=== PATIENT | female | born 1995 | race Caucasian/White ===

== ENCOUNTER 2019-04-28 14:03 | Emergency (ER) | payer MEDICAID ==
[~2019-04-28] VITALS: Ht 162.6 cm; Wt 77.1 kg
[2019-04-28 14:05] VITALS: BP 99/64
== END 2019-04-28 17:50 | disposition home or self-care (01) ==
LOC: ER 14:03
DX: E03.9 Hypothyroidism, unspecified (principal); Z76.0 Encounter for issue of repeat prescription

== ENCOUNTER 2019-06-14 13:17 | Inpatient (IN) | payer MEDICAID ==
[~2019-06-14] VITALS: Ht 162.6 cm; Wt 81.0 kg
[2019-06-14] MEDS ORDERED: ONDANSETRON ODT 4 MG TAB PO ONE (14:15)
[2019-06-14 14:24] LABS: Basophils # (auto) 0.1 10 ^3/uL (0-0.2); Eosinophils # (auto) 0.3 10 ^3/uL (0-0.8); Eosinophils % (auto) 2.7 % (0.0-7.0); Hematocrit 38.6 % (36.0-46.0); Hemoglobin 13.2 g/dL (12.2-16.2); Lymphocytes # (auto) 2.7 10 ^3/uL (0.4-5.4); Lymphocytes % (auto) 24.6 % (10.0-50.0); Mean Corpuscular Hgb Conc. 34.2 g/dL (32.0-36.0); Mean Corpuscular Volume 78.9 fL (80.0-100.0); Monocytes # (auto) 0.6 10 ^3/uL (0-1.3); Monocytes % (auto) 5.7 % (0.0-12.0); Neutrophils # (auto) 7.2 10 ^3/uL (1.6-8.6); Nucleated Red Blood Cells % 0.1 %; Platelet Count (auto) 336 10^3/uL (140-450); Red Cell Distribution Width 12.7 % (11.8-14.3); White Blood Cell 10.9 10^3/uL (4.4-10.8)
[2019-06-14] MEDS ORDERED: SODIUM CHLORIDE 0.9% 1,000 ML IV ONE (14:30)
[2019-06-14 14:46] LABS: Albumin 4.1 g/dL (3.4-5.0); Calcium 9.4 mg/dL (8.5-10.1); Magnesium 2.2 mg/dL (1.6-2.6); Potassium 4.6 mmol/L (3.5-5.1)
[2019-06-14 14:49] LABS: BUN/Creatinine Ratio 22.8; Bilirubin, Total 0.6 mg/dL (0.2-1.0); Total Protein 8.5 g/dL (6.4-8.2)
[2019-06-14 16:25] LABS: Urine Bacteria FEW /hpf (None Seen); Urine Blood 2+ /uL (Negative); Urine Specific Gravity 1.005 (1.001-1.035); Urine WBC 6 /hpf (0 - 5)
[2019-06-14] MEDS ORDERED: PROMETHAZINE HCL 25 MG/ML 1ML IV PRN (17:30)
[2019-06-14] MEDS ORDERED: traMADol HCL 50 MG TAB PO PRN (17:30)
[2019-06-14] MEDS ORDERED: ACETAMINOPHEN 500 MG TAB PO PRN (17:30)
[2019-06-14] MEDS ORDERED: MORPHINE SULF INJ 2 MG/ML SYRINGE 1ML IV PRN (17:30)
[2019-06-14] MEDS ORDERED: cefTRIAXone 1GM/50ML D5W 50 ML IV ONE (17:30)
[2019-06-14] MEDS ORDERED: NITROGLYCERIN 0.4 MG SL TAB SL PRN (17:30)
[2019-06-14] MEDS ORDERED: TEMAZEPAM 15 MG CAP PO PRN (17:30)
[2019-06-14] MEDS ORDERED: HYDROCORTISONE SOD SUCC 100 MG/2ML INJ VIAL IV ONE (17:45)
[2019-06-14] MEDS ORDERED: SODIUM CHLORIDE 0.9% 2,000 ML IV ONE (17:45)
[2019-06-14 17:59] LABS: Amylase 50 U/L (25-115); Lipase 130 U/L (73-393)
--- NOTE | 2019-06-14 18:40 | NUR ---
MS admit from [facility] admitted to tele/MS after SBAR received. Patient oriented to Glenny Jovel RN primary RN, unit, room, bed, and unit policies regarding patient care and visiting hours. Patient weighed by bedscale and encouraged to call if she needs something. All questions and concerns addressed, patient verbalized understanding. Note: Addendum: 06/14/19 at 1853 by Glenny Jovel RN RN Patient is telemetry admission - tele 56.
--- NOTE | 2019-06-14 18:41 | NUR ---
Telemetry admit from [facility] admitted to Telemetry unit after SBAR received. Patient oriented to Glenny Jovel, RN primary RN, unit, room, bed, and unit policies regarding patient care and visiting hours. Patient now on continuous telemetry monitoring, tele box # 56 and telemetry reading on arrival to unit is SR 77 . Patient placed on bedside oxygen, weighed by bedscale and encouraged to call if they need something. All questions and concerns addressed, patient verbalized understanding. Note:
[2019-06-14] MEDS ORDERED: LEVO50TA7 PO (19:14)
[2019-06-14] MEDS ORDERED: FLUD0.1T2 PO (19:14)
[2019-06-14] MEDS ORDERED: HYDR20TA19 PO (19:14)
--- NOTE | 2019-06-14 19:20 | NUR ---
Opening Shift Note Assumed care of patient, awake, alert and oriented X4. Patient is sitting up eating dinner, states she is still feeling tired and weak. Instructed patient of importance of using call calderon for assistance if getting out of bed, patient verbalizes understanding. No S/S of distress/SOB or pain. Bed is low, locked, two side rails raised, and call calderon is within reach. Patient connected to tele box #56 with HR 96 bpm. Instructed on POC and to call for assist PRN, will continue to monitor for changes Q1hr and PRN.
[2019-06-14 20:00] VITALS: BP 98/62
[2019-06-14] MEDS ORDERED: LEVOTHYROXINE SODIUM 50 MCG TAB PO ONE (20:00)
[2019-06-14] MEDS ORDERED: FLUDROCORTISONE ACETATE 0.1 MG TAB PO ONE (20:00)
[2019-06-14] MEDS: FAMOTIDINE 20 MG TAB PO SCH (21:30)
[2019-06-14] MEDS: SODIUM CHLORIDE 0.9% 1,000 ML IV SCH (21:32)
[2019-06-15] MEDS: SODIUM CHLORIDE 0.9% 1,000 ML IV SCH ×4 (03:01→23:30)
[2019-06-15 05:28] VITALS: BP 88/49
[2019-06-15] MEDS: HYDROCORTISONE SOD SUCC 100 MG/2ML INJ VIAL IV SCH ×3 (06:15→22:21)
[2019-06-15] MEDS: LEVOTHYROXINE SODIUM 50 MCG TAB PO SCH (06:21)
[2019-06-15 06:49] LABS: Basophils # (auto) 0.1 10 ^3/uL (0-0.2); Basophils % (auto) 0.7 % (0.0-2.0); Eosinophils # (auto) 0.1 10 ^3/uL (0-0.8); Eosinophils % (auto) 1.1 % (0.0-7.0); Hematocrit 32.4 % (36.0-46.0); Hemoglobin 10.7 g/dL (12.2-16.2); Lymphocytes # (auto) 2.6 10 ^3/uL (0.4-5.4); Lymphocytes % (auto) 24.3 % (10.0-50.0); Mean Corpuscular Hemoglobin 27.1 pg (28.0-32.0); Mean Corpuscular Hgb Conc. 33.1 g/dL (32.0-36.0); Mean Corpuscular Volume 81.8 fL (80.0-100.0); Monocytes # (auto) 0.9 10 ^3/uL (0-1.3); Monocytes % (auto) 7.8 % (0.0-12.0); Neutrophils # (auto) 7.2 10 ^3/uL (1.6-8.6); Neutrophils % (auto) 66.1 % (37.0-80.0); Nucleated Red Blood Cells % 0.1 %; Platelet Count (auto) 282 10^3/uL (140-450); Red Blood Cells 3.96 10^6/uL (4.0-5.20); Red Cell Distribution Width 12.9 % (11.8-14.3); White Blood Cell 10.9 10^3/uL (4.4-10.8)
[2019-06-15 07:11] LABS: Potassium 4.1 mmol/L (3.5-5.1)
[2019-06-15 07:17] LABS: Albumin 3.4 g/dL (3.4-5.0); BUN/Creatinine Ratio 21.9; Bilirubin, Total 0.4 mg/dL (0.2-1.0); Calcium 8.5 mg/dL (8.5-10.1); Total Protein 6.9 g/dL (6.4-8.2)
--- NOTE | 2019-06-15 07:53 | NUR ---
Opening Shift Note Assumed care of patient, awake and alert. No S/S of distress/SOB or pain. Instructed on POC and to call for assist PRN, will continue to monitor for changes Q1hr and PRN.
[2019-06-15 08:40] VITALS: BP 95/43
[2019-06-15] MEDS ORDERED: cefTRIAXone 1GM/50ML D5W 50 ML IV SCH (09:00)
[2019-06-15] MEDS: FLUDROCORTISONE ACETATE 0.1 MG TAB PO SCH (09:37)
[2019-06-15] MEDS: FAMOTIDINE 20 MG TAB PO SCH ×2 (09:37→22:21)
[2019-06-15] MEDS ORDERED: HYDROCORTISONE SOD SUCC 100 MG/2ML INJ VIAL IV SCH (10:00)
[2019-06-15 13:00] VITALS: BP 93/54
--- NOTE | 2019-06-15 15:40 | NUR ---
Discharge questions Patient stated that she wants to go home. As per Dr. Luna, patient is not ready for discharge today. Will follow up tomorrow 06/16/2019. Patient was informed and she started crying. States she just want to go home. I reassured patient and encourage her talk with her family and wait for tomorrow.
--- NOTE | 2019-06-15 16:30 | NUR ---
Hospitalist Paged Patient wants to leave AMA.
--- NOTE | 2019-06-15 16:48 | NUR ---
Hospitalist Returned call Informed Dr. Luna that patient wants to leave AMA. She states that it's up to the patient. But she think she should stay and get treated.
[2019-06-15 16:50] VITALS: BP 90/52
--- NOTE | 2019-06-15 17:30 | NUR ---
Patient decided she no longer will go AMA. She will stay and wait for discharge.
--- NOTE | 2019-06-15 19:10 | NUR ---
Opening Shift Note Assumed care of patient, awake, alert, and oriented X 4. No S/S of distress/SOB or pain. Bed is low, locked, two side rails raised, and call calderon is within reach. Patient verbalizes that she is feeling anxious about staying in the hospital, education given regarding care and patient verbalizes understanding and says she will stay for the remainder of her stay and does not want to AMA. Instructed on POC and to call for assist PRN, will continue to monitor for changes Q1hr and PRN.
[2019-06-15 20:00] VITALS: BP 94/70
[2019-06-15 22:11] VITALS: BP 98/59
[2019-06-16 05:15] VITALS: BP 98/61
[2019-06-16 05:41] LABS: Basophils # (auto) 0 10 ^3/uL (0-0.2); Basophils % (auto) 0.4 % (0.0-2.0); Eosinophils # (auto) 0 10 ^3/uL (0-0.8); Hematocrit 30.2 % (36.0-46.0); Hemoglobin 10.3 g/dL (12.2-16.2); Lymphocytes # (auto) 1.8 10 ^3/uL (0.4-5.4); Lymphocytes % (auto) 20.7 % (10.0-50.0); Mean Corpuscular Hemoglobin 27.3 pg (28.0-32.0); Mean Corpuscular Hgb Conc. 34.2 g/dL (32.0-36.0); Mean Corpuscular Volume 79.7 fL (80.0-100.0); Monocytes # (auto) 0.3 10 ^3/uL (0-1.3); Monocytes % (auto) 3.3 % (0.0-12.0); Neutrophils # (auto) 6.6 10 ^3/uL (1.6-8.6); Neutrophils % (auto) 75.6 % (37.0-80.0); Platelet Count (auto) 250 10^3/uL (140-450); Red Blood Cells 3.79 10^6/uL (4.0-5.20); White Blood Cell 8.7 10^3/uL (4.4-10.8)
[2019-06-16] MEDS: HYDROCORTISONE SOD SUCC 100 MG/2ML INJ VIAL IV SCH ×2 (06:02→14:25)
[2019-06-16] MEDS: LEVOTHYROXINE SODIUM 50 MCG TAB PO SCH (06:03)
[2019-06-16] MEDS: SODIUM CHLORIDE 0.9% 1,000 ML IV SCH ×2 (06:05→15:30)
--- NOTE | 2019-06-16 07:13 | NUR ---
Opening Shift Note Assumed care of patient, awake and alert. No S/S of distress/SOB or pain. Instructed on POC and to call for assist PRN, will continue to monitor for changes Q1hr and PRN. Bed is set in lowest locked position with side rails up x 2 for safety and call light is within reach.
[2019-06-16 08:00] VITALS: BP 96/64
[2019-06-16 09:00] VITALS: BP 96/64
[2019-06-16] MEDS: FLUDROCORTISONE ACETATE 0.1 MG TAB PO SCH (09:52)
[2019-06-16] MEDS: FAMOTIDINE 20 MG TAB PO SCH (09:53)
[2019-06-16 13:00] VITALS: BP 107/57
--- NOTE | 2019-06-16 14:11 | NUR ---
at bedside Dr. Luna updated pt on POC and discharge planning. Patient verbalized understanding.
[2019-06-16] MEDS ORDERED: HYDR20TA19 PO (15:18)
[2019-06-16] MEDS ORDERED: LEVO50TA7 PO (15:18)
[2019-06-16] MEDS ORDERED: FLUD0.1T2 PO (15:18)
[2019-06-16 15:26] VITALS: BP 107/57
--- NOTE | 2019-06-16 16:22 | NUR ---
Discharge instructions given as ordered. Encourage to follow up with PMD as instructed within one week of discharge, patient verbalized understanding. All questions and concerns addressed. Patient verbalized understanding. IV removed with catheter intact, pressure dressing applied. Telemetry unit returned to ICU. Patient taken to vehicle via wheelchair with all personal belongings, accompanied by staff and family member. No distress noted at time of departure.
== END 2019-06-16 16:22 | disposition home or self-care (01) | DRG 424 ==
LOC: ER 13:20 → TELE-WESTW 13:21
PROVIDERS: ADMIT Internal Medicine; ATTEND Internal Medicine
DX: E27.2 Addisonian crisis (principal); I95.9 Hypotension, unspecified; R65.10 Systemic inflammatory response syndrome (SIRS) of non-infectious origin without acute organ dysfunction; E87.1 Hypo-osmolality and hyponatremia; E27.1 Primary adrenocortical insufficiency; E03.9 Hypothyroidism, unspecified; E86.0 Dehydration; E66.9 Obesity, unspecified; F17.200 Nicotine dependence, unspecified, uncomplicated; Z91.19 Patient's noncompliance with other medical treatment and regimen; Z68.30 Body mass index [BMI] 30.0-30.9, adult
CPT/HCPCS: 36415; 80053; 81001; 82024; 82150; 82533; 83690; 83735; 84443; 84702; 85025; 87086; G0378; J0696; Q0162

== ENCOUNTER 2019-09-17 15:03 | Emergency (ER) | payer MEDICAID ==
[~2019-09-17] VITALS: Ht 162.6 cm; Wt 86.6 kg
[~2019-09-17 15:03] MED LIST: FLUD0.1T2 PO; HYDR20TA19 PO; LEVO50TA7 PO
[2019-09-17 15:56] VITALS: BP 102/68
[2019-09-17 16:41] LABS: Urine Bacteria FEW /hpf (None Seen); Urine Blood Negative /uL (Negative); Urine Mucus FEW (None Seen); Urine Specific Gravity 1.027 (1.001-1.035); Urine WBC 4 /hpf (0 - 5)
[2019-09-17 16:41] LABS: Potassium 3.7 mmol/L (3.5-5.1)
[2019-09-17 16:42] LABS: Basophils # (auto) 0.1 10 ^3/uL (0-0.2); Eosinophils # (auto) 0 10 ^3/uL (0-0.8); Eosinophils % (auto) 0.2 % (0.0-7.0); Mean Corpuscular Volume 73.7 fL (80.0-100.0); Monocytes # (auto) 0.7 10 ^3/uL (0-1.3)
[2019-09-17 16:43] LABS: Basophils % (auto) 0.6 % (0.0-2.0); Hematocrit 36.6 % (36.0-46.0); Hemoglobin 11.7 g/dL (12.2-16.2); Lymphocytes # (auto) 3.3 10 ^3/uL (0.4-5.4); Lymphocytes % (auto) 22.9 % (10.0-50.0); Mean Corpuscular Hemoglobin 23.5 pg (28.0-32.0); Mean Corpuscular Hgb Conc. 31.9 g/dL (32.0-36.0); Monocytes % (auto) 4.8 % (0.0-12.0); Neutrophils # (auto) 10.3 10 ^3/uL (1.6-8.6); Neutrophils % (auto) 71.5 % (37.0-80.0); Nucleated Red Blood Cells % 0.1 %; Platelet Count (auto) 417 10^3/uL (140-450); Red Blood Cells 4.97 10^6/uL (4.0-5.20); Red Cell Distribution Width 17.1 % (11.8-14.3); White Blood Cell 14.4 10^3/uL (4.4-10.8)
[2019-09-17 16:46] LABS: BUN/Creatinine Ratio 16.2; Bilirubin, Total 0.4 mg/dL (0.2-1.0); Total Protein 7.7 g/dL (6.4-8.2)
== END 2019-09-18 01:05 | disposition left against medical advice (07) ==
LOC: ER 15:03
DX: N83.291 Other ovarian cyst, right side (principal); N39.0 Urinary tract infection, site not specified; Z79.899 Other long term (current) drug therapy
CPT/HCPCS: 36415; 74176; 80053; 81001; 83690; 85025

== ENCOUNTER 2019-10-23 19:01 | Emergency (ER) | payer MEDICAID ==
[~2019-10-23] VITALS: Ht 162.6 cm; Wt 91.6 kg
[~2019-10-23 19:01] MED LIST changes: -HYDR20TA19 PO; +HYDR20TA20 PO
[2019-10-23 20:00] VITALS: BP 105/60
== END 2019-10-23 23:45 | disposition left against medical advice (07) ==
LOC: ER 19:01
DX: R11.2 Nausea with vomiting, unspecified (principal); Z53.21 Procedure and treatment not carried out due to patient leaving prior to being seen by health care provider

== ENCOUNTER 2019-12-02 02:48 | Emergency (ER) | payer MEDICAID ==
[~2019-12-02] VITALS: Ht 162.6 cm; Wt 91.6 kg
[2019-12-02 03:28] LABS: Basophils # (auto) 0.1 10 ^3/uL (0-0.2); Hemoglobin 10.2 g/dL (12.2-16.2)
[2019-12-02 03:29] LABS: Basophils % (auto) 0.6 % (0.0-2.0); Eosinophils # (auto) 0.3 10 ^3/uL (0-0.8); Hematocrit 32.8 % (36.0-46.0); Lymphocytes # (auto) 4.7 10 ^3/uL (0.4-5.4); Lymphocytes % (auto) 31.5 % (10.0-50.0); Mean Corpuscular Hemoglobin 23.1 pg (28.0-32.0); Mean Corpuscular Volume 74.7 fL (80.0-100.0); Monocytes % (auto) 6.8 % (0.0-12.0); Neutrophils # (auto) 8.8 10 ^3/uL (1.6-8.6); Neutrophils % (auto) 59.1 % (37.0-80.0); Platelet Count (auto) 383 10^3/uL (140-450); Red Blood Cells 4.39 10^6/uL (4.0-5.20); Red Cell Distribution Width 15.6 % (11.8-14.3); White Blood Cell 14.9 10^3/uL (4.4-10.8)
[2019-12-02 03:48] LABS: Alanine Aminotransferase 31 U/L (13-56); Albumin 3.2 g/dL (3.4-5.0); Anion Gap 6 (5-15); Aspartate Aminotransferase 12 U/L (15-37); BUN/Creatinine Ratio 20.8; Blood Urea Nitrogen 15 mg/dL (7-18); Calcium 8.4 mg/dL (8.5-10.1); Carbon Dioxide 25 mmol/L (21-32); Chloride 109 mmol/L (98-107); GFR African American 128 mL/min; GFR Non-African American 106 mL/min; Glucose 105 mg/dL (74-106); Potassium 3.7 mmol/L (3.5-5.1); Sodium 140 mmol/L (136-145)
[2019-12-02 03:53] LABS: Alkaline Phosphatase 37 U/L (45-117); Bilirubin, Total 0.2 mg/dL (0.2-1.0); Total Protein 6.8 g/dL (6.4-8.2)
[2019-12-02] MEDS ORDERED: FUROSEMIDE 20 MG/2 ML VIAL IV ONE (09:00)
[2019-12-02] MEDS ORDERED: SPIRONOLACTONE 25 MG TAB PO ONE (09:00)
[2019-12-02] MEDS ORDERED: LEVOTHYROXINE SODIUM 50 MCG TAB PO ONE (09:00)
[2019-12-02 10:02] VITALS: BP 118/74
== END 2019-12-02 10:26 | disposition home or self-care (01) ==
LOC: ER 02:48
DX: E27.1 Primary adrenocortical insufficiency (principal); R60.9 Edema, unspecified; E44.1 Mild protein-calorie malnutrition; E03.9 Hypothyroidism, unspecified
CPT/HCPCS: 36415; 72131; 80053; 81002; 83735; 83880; 84443; 84484; 84702; 85025; 96374; 99285; J1940

== ENCOUNTER 2020-05-31 11:47 | Emergency (ER) | payer MEDICAID ==
[~2020-05-31] VITALS: Ht 162.6 cm; Wt 72.6 kg
[2020-05-31 12:21] VITALS: BP 122/48
[2020-05-31] MEDS ORDERED: ALPRAZolam 0.5 MG TAB PO ONE (13:45)
== END 2020-05-31 14:33 | disposition home or self-care (01) ==
LOC: ER 11:47
DX: F41.1 Generalized anxiety disorder (principal)

== ENCOUNTER 2020-08-26 02:01 | Emergency (ER) | payer MEDICAID ==
[~2020-08-26] VITALS: Ht 162.6 cm; Wt 106.1 kg
[2020-08-26 02:30] LABS: Eosinophils # (auto) 0.6 10 ^3/uL (0-0.8); Lymphocytes # (auto) 3.6 10 ^3/uL (0.4-5.4); Monocytes # (auto) 0.9 10 ^3/uL (0-1.3); Neutrophils # (auto) 5.5 10 ^3/uL (1.6-8.6); Nucleated Red Blood Cells % 0.2 %
[2020-08-26 02:32] LABS: Basophils # (auto) 0.1 10 ^3/uL (0-0.2); Basophils % (auto) 1.2 % (0.0-2.0); Eosinophils % (auto) 5.7 % (0.0-7.0); Hematocrit 38.6 % (36.0-46.0); Lymphocytes % (auto) 33.8 % (10.0-50.0); Mean Corpuscular Hemoglobin 20.5 pg (28.0-32.0); Mean Corpuscular Hgb Conc. 31.2 g/dL (32.0-36.0); Mean Corpuscular Volume 65.8 fL (80.0-100.0); Neutrophils % (auto) 51.3 % (37.0-80.0); Platelet Count (auto) 473 10^3/uL (140-450); Red Blood Cells 5.87 10^6/uL (4.0-5.20); Red Cell Distribution Width 17.3 % (11.8-14.3); White Blood Cell 10.8 10^3/uL (4.4-10.8)
[2020-08-26 02:48] LABS: BUN/Creatinine Ratio 8.3; Calcium 9.6 mg/dL (8.5-10.1); Potassium 3.8 mmol/L (3.5-5.1)
[2020-08-26 02:49] LABS: Bilirubin, Total 0.2 mg/dL (0.2-1.0); Total Protein 7.8 g/dL (6.4-8.2)
[2020-08-26] MEDS ORDERED: FAMOTIDINE (10MG/ML) 2ML VL IV ONE (03:30)
[2020-08-26 04:03] LABS: Urine Bacteria NONE SEEN /hpf (None Seen); Urine Blood Negative /uL (Negative); Urine Mucus FEW (None Seen); Urine Specific Gravity 1.009 (1.001-1.035); Urine WBC 10 /hpf (0 - 5)
[2020-08-26] MEDS ORDERED: ONDANSETRON HCL 4 MG/2 ML VIAL IV ONE (04:15)
[2020-08-26] MEDS ORDERED: SODIUM CHLORIDE 0.9% 1,000 ML IV ONE (04:15)
[2020-08-26 06:08] VITALS: BP 86/44
== END 2020-08-26 06:33 | disposition home or self-care (01) ==
LOC: ER 02:01
DX: R07.89 Other chest pain (principal); R11.2 Nausea with vomiting, unspecified
CPT/HCPCS: 36415; 80053; 81001; 83690; 85025; 96361; 96374; 96375; 99285; J2405; J3490

== ENCOUNTER 2020-09-27 15:09 | Inpatient (IN) | payer MEDICAID ==
[~2020-09-27] VITALS: Ht 162.6 cm; Wt 99.8 kg
[2020-09-27 18:43] LABS: Alcohol, Urine < 3.0 mg/dL (0-10); Amphetamine Screen, Urine NEGATIVE (NEGATIVE); Barbiturate Scree,Urine NEGATIVE (NEGATIVE); Benzodiazephine Screen, Urine NEGATIVE (NEGATIVE); Cannabinoid Screen, Urine POSITIVE (NEGATIVE); Cocaine Screen, Urine NEGATIVE (NEGATIVE); Opiate Scree,Urine NEGATIVE (NEGATIVE); Phencyclidine Screen, Urine NEGATIVE (NEGATIVE)
[2020-09-27 18:46] LABS: Urine Bacteria FEW /hpf (None Seen); Urine Blood 3+ /uL (Negative); Urine Mucus FEW (None Seen); Urine Specific Gravity 1.026 (1.001-1.035); Urine WBC 22 /hpf (0 - 5)
[2020-09-27 18:47] LABS: Basophils # (auto) 0.1 10 ^3/uL (0-0.2); Eosinophils # (auto) 0.4 10 ^3/uL (0-0.8); Hematocrit 35.4 % (36.0-46.0); Hemoglobin 11.6 g/dL (12.2-16.2); Mean Corpuscular Hgb Conc. 32.9 g/dL (32.0-36.0); Red Cell Distribution Width 17.9 % (11.8-14.3)
[2020-09-27 18:49] LABS: Basophils % (auto) 1.4 % (0.0-2.0); Eosinophils % (auto) 3.8 % (0.0-7.0); Lymphocytes # (auto) 2.9 10 ^3/uL (0.4-5.4); Lymphocytes % (auto) 29.5 % (10.0-50.0); Mean Corpuscular Hemoglobin 21.8 pg (28.0-32.0); Mean Corpuscular Volume 66.1 fL (80.0-100.0); Monocytes # (auto) 0.6 10 ^3/uL (0-1.3); Monocytes % (auto) 5.9 % (0.0-12.0); Neutrophils # (auto) 5.9 10 ^3/uL (1.6-8.6); Neutrophils % (auto) 59.4 % (37.0-80.0); Nucleated Red Blood Cells % 0.1 %; Platelet Count (auto) 435 10^3/uL (140-450); Red Blood Cells 5.35 10^6/uL (4.0-5.20)
[2020-09-27 19:02] LABS: Albumin 3.9 g/dL (3.4-5.0); Potassium 3.8 mmol/L (3.5-5.1)
[2020-09-27 19:04] LABS: BUN/Creatinine Ratio 14.5
[2020-09-27 19:07] LABS: Bilirubin, Total 0.4 mg/dL (0.2-1.0); Total Protein 7.8 g/dL (6.4-8.2)
[2020-09-28] MEDS ORDERED: PIPERACILLIN-TAZOB 3.375GM 100 ML IV ONE
[2020-09-28] MEDS ORDERED: levoFLOXacin 500MG 100 ML IV ONE
[2020-09-28 02:33] LABS: Amylase 35 U/L (25-115); Lipase 155 U/L (73-393)
[2020-09-28] MEDS ORDERED: DEXTROSE (50%) 50ML SYRG IV PRN (06:15)
[2020-09-28] MEDS ORDERED: ACETAMINOPHEN 325 MG TAB PO PRN (06:15)
[2020-09-28] MEDS ORDERED: NITROGLYCERIN 0.4 MG SL TAB SL PRN (06:15)
[2020-09-28] MEDS ORDERED: HYDROcodone-ACET 5/325MG TAB PO PRN (06:15)
[2020-09-28] MEDS ORDERED: ONDANSETRON HCL 4 MG/2 ML VIAL IV PRN (06:15)
[2020-09-28] MEDS ORDERED: DOCUSATE SOD 100 MG CAP PO PRN (06:15)
[2020-09-28] MEDS ORDERED: TEMAZEPAM 15 MG CAP PO PRN (06:15)
[2020-09-28] MEDS ORDERED: MORPHINE SULF INJ 2 MG/ML SYRINGE 1ML IV PRN (06:15)
[2020-09-28] MEDS ORDERED: SODIUM CHLORIDE 0.9% 1,000 ML IV SCH (06:15)
[2020-09-28 06:37] VITALS: BP 106/52
[2020-09-28] MEDS ORDERED: LEVOTHYROXINE SODIUM 50 MCG TAB PO SCH (07:00)
[2020-09-28] MEDS ORDERED: InsuLIN REG 1unit/0.01ml Soln (100units/ml) SC SCH (07:00)
[2020-09-28] MEDS ORDERED: ACCU-CHEK COMFORT CURVE STRIP VI SCH (07:00)
[2020-09-28 07:37] LABS: Basophils # (auto) 0.1 10 ^3/uL (0-0.2); Eosinophils # (auto) 0.4 10 ^3/uL (0-0.8); Lymphocytes # (auto) 2.5 10 ^3/uL (0.4-5.4); Mean Corpuscular Hemoglobin 21.6 pg (28.0-32.0); Nucleated Red Blood Cells % 0.1 %
[2020-09-28 07:39] LABS: Basophils % (auto) 1.9 % (0.0-2.0); Eosinophils % (auto) 5.4 % (0.0-7.0); Hematocrit 34.2 % (36.0-46.0); Hemoglobin 11.1 g/dL (12.2-16.2); Lymphocytes % (auto) 35.1 % (10.0-50.0); Mean Corpuscular Hgb Conc. 32.6 g/dL (32.0-36.0); Mean Corpuscular Volume 66.2 fL (80.0-100.0); Monocytes # (auto) 0.6 10 ^3/uL (0-1.3); Monocytes % (auto) 7.7 % (0.0-12.0); Neutrophils # (auto) 3.6 10 ^3/uL (1.6-8.6); Neutrophils % (auto) 49.9 % (37.0-80.0); Platelet Count (auto) 403 10^3/uL (140-450); Red Blood Cells 5.17 10^6/uL (4.0-5.20); Red Cell Distribution Width 17.7 % (11.8-14.3); White Blood Cell 7.2 10^3/uL (4.4-10.8)
[2020-09-28 07:53] LABS: Albumin 3.6 g/dL (3.4-5.0); BUN/Creatinine Ratio 16.4; Calcium 8.6 mg/dL (8.5-10.1); Potassium 3.4 mmol/L (3.5-5.1)
[2020-09-28 07:56] LABS: Bilirubin, Total 0.6 mg/dL (0.2-1.0); Total Protein 7.4 g/dL (6.4-8.2)
[2020-09-28] MEDS ORDERED: cefTRIAXone 1GM/50ML D5W 50 ML IV SCH (09:00)
[2020-09-28] MEDS ORDERED: MULTIPLE VITAMIN TAB PO SCH (10:00)
[2020-09-28] MEDS ORDERED: FAMOTIDINE 20 MG TAB PO SCH (10:00)
[2020-09-28] MEDS ORDERED: POTASSIUM CHL 20 Meq TABLET PO ONE (10:00)
[2020-09-28] MEDS ORDERED: ENOXAPARIN SOD 40 MG/0.4 ML SYRINGE SC SCH (10:00)
[2020-09-28] MEDS ORDERED: ZINC SULFATE 220mg CAP or TAB PO SCH (10:00)
[2020-09-28] MEDS ORDERED: ASCORBIC ACID 500 MG TAB PO SCH (10:00)
[2020-09-28] MEDS ORDERED: LEVO500T31 PO (10:15)
[2020-09-28] MEDS ORDERED: HYDROCORTISONE 10 MG TAB PO SCH (10:30)
[2020-09-28] MEDS ORDERED: FLUDROCORTISONE ACETATE 0.1 MG TAB PO SCH (11:00)
== END 2020-09-28 12:15 | disposition home or self-care (01) | DRG 463 ==
LOC: ER 15:09 → TELE 09-28 06:15 → TELE-WESTW 09-28 10:40
PROVIDERS: ADMIT Nurse Practitioner Family; ATTEND Nurse Practitioner Family
DX: N39.0 Urinary tract infection, site not specified (principal); E11.69 Type 2 diabetes mellitus with other specified complication; K76.0 Fatty (change of) liver, not elsewhere classified; E27.1 Primary adrenocortical insufficiency; R16.0 Hepatomegaly, not elsewhere classified; E66.01 Morbid (severe) obesity due to excess calories; Z20.822 Contact with and (suspected) exposure to COVID-19; F41.9 Anxiety disorder, unspecified; E03.9 Hypothyroidism, unspecified; N94.89 Other specified conditions associated with female genital organs and menstrual cycle; F12.90 Cannabis use, unspecified, uncomplicated; N83.201 Unspecified ovarian cyst, right side; E87.6 Hypokalemia; Z79.4 Long term (current) use of insulin; Z79.899 Other long term (current) drug therapy; Z68.37 Body mass index [BMI] 37.0-37.9, adult
CPT/HCPCS: 36415; 74176; 76830; 80053; 80307; 81001; 81025; 82150; 82962; 83690; 84443; 85025; 85049; 87086; 87426; 96361; 96365; 96367; G0378; J0696; J1956; J2543

== ENCOUNTER 2021-03-18 16:21 | Emergency (ER) | payer MEDICAID ==
[~2021-03-18] VITALS: Ht 162.6 cm; Wt 92.5 kg
[~2021-03-18 16:21] MED LIST changes: +LEVO500T31 PO
[2021-03-18 17:07] VITALS: BP 116/77
== END 2021-03-18 18:12 | disposition home or self-care (01) ==
LOC: ER 16:21
DX: J02.9 Acute pharyngitis, unspecified (principal); E27.1 Primary adrenocortical insufficiency; E11.9 Type 2 diabetes mellitus without complications; Z76.0 Encounter for issue of repeat prescription

== ENCOUNTER 2021-05-01 19:50 | Emergency (ER) | payer MEDICAID ==
[~2021-05-01] VITALS: Ht 160 cm; Wt 97.5 kg
[2021-05-01] MEDS ORDERED: ACETAMINOPHEN 500 MG TAB PO ONE (22:00)
[2021-05-02 00:36] LABS: Eosinophils # (auto) 0.2 10 ^3/uL (0-0.8); Nucleated Red Blood Cells % 0.1 %; White Blood Cell 17.9 10^3/uL (4.4-10.8)
[2021-05-02 00:38] LABS: Basophils # (auto) 0.1 10 ^3/uL (0-0.2); Basophils % (auto) 0.7 % (0.0-2.0); Eosinophils % (auto) 0.8 % (0.0-7.0); Hematocrit 39.5 % (36.0-46.0); Hemoglobin 12.1 g/dL (12.2-16.2); Lymphocytes % (auto) 33.7 % (10.0-50.0); Mean Corpuscular Hemoglobin 21.1 pg (28.0-32.0); Mean Corpuscular Hgb Conc. 30.6 g/dL (32.0-36.0); Mean Corpuscular Volume 68.7 fL (80.0-100.0); Monocytes # (auto) 1.1 10 ^3/uL (0-1.3); Monocytes % (auto) 5.9 % (0.0-12.0); Neutrophils # (auto) 10.6 10 ^3/uL (1.6-8.6); Neutrophils % (auto) 58.9 % (37.0-80.0); Red Blood Cells 5.75 10^6/uL (4.0-5.20); Red Cell Distribution Width 15.1 % (11.8-14.3)
[2021-05-02 00:58] LABS: Albumin 4.6 g/dL (3.4-5.0); Calcium 9.5 mg/dL (8.5-10.1)
[2021-05-02 01:25] LABS: BUN/Creatinine Ratio 27.7; Bilirubin, Total 0.4 mg/dL (0.2-1.0); Total Protein 8.6 g/dL (6.4-8.2)
[2021-05-02 01:30] LABS: Potassium 4.1 mmol/L (3.5-5.1)
[2021-05-02 02:07] LABS: Urine Bacteria FEW /hpf (None Seen); Urine Blood 3+ /uL (Negative); Urine Mucus FEW (None Seen); Urine Specific Gravity 1.025 (1.001-1.035); Urine WBC 193 /hpf (0 - 5); Urine WBC Clumps PRESENT /hpf (None Seen)
[2021-05-02] MEDS ORDERED: AMOXICILLIN/CLAVULAN 500 MG TAB PO ONE (04:45)
[2021-05-02] MEDS ORDERED: ACET-1156 PO (05:03)
[2021-05-02] MEDS ORDERED: AMOXSUS6 PO (05:03)
[2021-05-02 05:06] LABS: Hemoglobin 11.4 g/dL (12.2-16.2)
[2021-05-02 05:09] LABS: Basophils # (auto) 0.1 10 ^3/uL (0-0.2); Basophils % (auto) 0.7 % (0.0-2.0); Eosinophils # (auto) 0.2 10 ^3/uL (0-0.8); Eosinophils % (auto) 1.4 % (0.0-7.0); Hematocrit 37.4 % (36.0-46.0); Lymphocytes # (auto) 5.8 10 ^3/uL (0.4-5.4); Lymphocytes % (auto) 38.4 % (10.0-50.0); Mean Corpuscular Hgb Conc. 30.4 g/dL (32.0-36.0); Monocytes # (auto) 0.9 10 ^3/uL (0-1.3); Monocytes % (auto) 6.2 % (0.0-12.0); Neutrophils # (auto) 8.1 10 ^3/uL (1.6-8.6); Neutrophils % (auto) 53.3 % (37.0-80.0); Nucleated Red Blood Cells % 0.1 %; Red Blood Cells 5.42 10^6/uL (4.0-5.20); Red Cell Distribution Width 15.4 % (11.8-14.3); White Blood Cell 15.2 10^3/uL (4.4-10.8)
[2021-05-02] MEDS ORDERED: cefTRIAXone 1GM/50ML D5W 50 ML IV ONE (05:15)
[2021-05-02 07:27] VITALS: BP 108/62
== END 2021-05-02 08:03 | disposition home or self-care (01) ==
LOC: ER 19:53
DX: R07.89 Other chest pain (principal); N39.0 Urinary tract infection, site not specified; Z32.02 Encounter for pregnancy test, result negative; Z20.822 Contact with and (suspected) exposure to COVID-19
CPT/HCPCS: 36415; 71046; 80053; 81001; 81025; 84484; 84702; 85025; 87426; 93005; 96365; 99285; J0696

== ENCOUNTER 2021-09-06 16:48 | Emergency (ER) | payer MEDICAID ==
[~2021-09-06] VITALS: Ht 160 cm; Wt 101.6 kg
[~2021-09-06 16:48] MED LIST changes: +ACET-1156 PO; +AMOXSUS6 PO
[2021-09-06 17:52] LABS: Urine Bacteria FEW /hpf (None Seen); Urine Blood TRACE /uL (Negative); Urine Hyaline Cast FEW /lpf (0 - 2); Urine Mucus FEW (None Seen); Urine Specific Gravity 1.021 (1.001-1.035); Urine WBC 12 /hpf (0 - 5)
[2021-09-06 18:22] LABS: Basophils # (auto) 0.1 10 ^3/uL (0-0.2); Monocytes # (auto) 0.5 10 ^3/uL (0-1.3)
[2021-09-06 18:24] LABS: Eosinophils # (auto) 0.1 10 ^3/uL (0-0.8); Eosinophils % (auto) 0.6 % (0.0-7.0); Hemoglobin 11.4 g/dL (12.2-16.2); Lymphocytes # (auto) 2.1 10 ^3/uL (0.4-5.4); Lymphocytes % (auto) 17.2 % (10.0-50.0); Mean Corpuscular Hemoglobin 20.2 pg (28.0-32.0); Mean Corpuscular Hgb Conc. 31.7 g/dL (32.0-36.0); Mean Corpuscular Volume 63.8 fL (80.0-100.0); Monocytes % (auto) 3.9 % (0.0-12.0); Neutrophils # (auto) 9.2 10 ^3/uL (1.6-8.6); Neutrophils % (auto) 77.3 % (37.0-80.0); Red Blood Cells 5.64 10^6/uL (4.0-5.20); Red Cell Distribution Width 17.6 % (11.8-14.3); White Blood Cell 11.9 10^3/uL (4.4-10.8)
[2021-09-06 18:35] LABS: Albumin 4.1 g/dL (3.4-5.0); Calcium 9.4 mg/dL (8.5-10.1); Potassium 4.4 mmol/L (3.5-5.1)
[2021-09-06 18:37] LABS: BUN/Creatinine Ratio 18.4
[2021-09-06 18:43] LABS: Bilirubin, Total 0.3 mg/dL (0.2-1.0); Total Protein 7.7 g/dL (6.4-8.2)
[2021-09-06] MEDS ORDERED: NITR-87 PO (20:49)
[2021-09-06 22:44] VITALS: BP 119/79
== END 2021-09-06 22:46 | disposition home or self-care (01) ==
LOC: ER 16:48
DX: N39.0 Urinary tract infection, site not specified (principal); N83.201 Unspecified ovarian cyst, right side; E11.9 Type 2 diabetes mellitus without complications; E03.9 Hypothyroidism, unspecified; Z79.2 Long term (current) use of antibiotics; Z79.899 Other long term (current) drug therapy
CPT/HCPCS: 36415; 74176; 80053; 81001; 85025

== ENCOUNTER 2023-01-10 15:14 | Emergency (ER) | payer MEDICAID ==
[~2023-01-10] VITALS: Ht 160 cm; Wt 92.2 kg
[2023-01-10 15:14] VITALS: BP 110/73; PULSE 77; RESP 16; O2SAT 97
[~2023-01-10 15:14] MED LIST changes: -ACET-1156 PO; +ACET-1881 PO; +HYDR20TA19 PO; -HYDR20TA20 PO; +NITR-87 PO
[2023-01-10 16:24] LABS: Alanine Aminotransferase 27 U/L (7-40); Albumin 4.9 g/dL (3.2-4.8); Alkaline Phosphatase 52 U/L (46-116); Anion Gap 10 (5-15); Aspartate Aminotransferase 23 U/L (13-40); BUN/Creatinine Ratio 5.7 (10.0-20.0); Bilirubin, Total 0.6 mg/dL (0.2-1.0); Blood Urea Nitrogen 5 mg/dL (9-23); Calcium 9.9 mg/dL (8.7-10.4); Carbon Dioxide 23 mmol/L (20-30); Chloride 97 mmol/L (98-107); Glucose 143 mg/dL (74-106); Potassium 4.3 mmol/L (3.5-5.1); Sodium 130 mmol/L (136-145); Total Protein 7.7 g/dL (5.7-8.2)
[2023-01-10 16:33] LABS: Urine Bacteria FEW /hpf (None Seen); Urine Blood Negative /uL (Negative); Urine Clarity Clear (Clear); Urine Color Yellow (Yellow); Urine Hyaline Cast FEW /lpf (0 - 2); Urine Mucus FEW (None Seen); Urine Protein, UAD 1+ (Negative); Urine Specific Gravity 1.014 (1.001-1.035); Urine Urobilinogen Normal (Negative); Urine WBC 2 /hpf (0 - 5); Urine pH 5.5 (5.0-8.0)
[2023-01-10 16:50] LABS: Basophils # (auto) 0.1 10 ^3/uL (0-0.2); Basophils % (auto) 0.8 % (0.0-2.0); Eosinophils # (auto) 0 10 ^3/uL (0-0.8); Eosinophils % (auto) 0.2 % (0.0-7.0); Hematocrit 37.4 % (36.0-46.0); Hemoglobin 11.6 g/dL (12.2-16.2); Lymphocytes # (auto) 1.5 10 ^3/uL (0.4-5.4); Mean Corpuscular Hemoglobin 20.8 pg (28.0-32.0); Monocytes # (auto) 0.3 10 ^3/uL (0-1.3); Monocytes % (auto) 2.5 % (0.0-12.0); Neutrophils # (auto) 10.3 10 ^3/uL (1.6-8.6); Neutrophils % (auto) 84.5 % (37.0-80.0); Nucleated Red Blood Cells % 0.1 %; Red Blood Cells 5.59 10^6/uL (4.0-5.20); Red Cell Distribution Width 17.1 % (11.8-14.3); White Blood Cell 12.2 10^3/uL (4.4-10.8)
[2023-01-11] MEDS ORDERED: METF-370 PO (21:07)
== END 2023-01-11 03:32 | disposition left against medical advice (07) ==
LOC: ER 15:14
DX: R10.13 Epigastric pain (principal); R11.2 Nausea with vomiting, unspecified; Z53.21 Procedure and treatment not carried out due to patient leaving prior to being seen by health care provider
CPT/HCPCS: 36415; 80053; 81001; 85025

== ENCOUNTER 2023-01-11 08:51 | Inpatient (IN) | payer MEDICAID ==
[~2023-01-11] VITALS: Ht 160 cm; Wt 93.4 kg
[2023-01-11 09:23] LABS: Urine Bacteria NONE SEEN /hpf (None Seen); Urine Blood Negative /uL (Negative); Urine Clarity HAZY (Clear); Urine Color Yellow (Yellow); Urine Mucus FEW (None Seen); Urine Protein, UAD 1+ (Negative); Urine Specific Gravity 1.027 (1.001-1.035); Urine WBC 6 /hpf (0 - 5)
[2023-01-11 09:27] LABS: Basophils # (auto) 0.1 10 ^3/uL (0-0.2); Eosinophils # (auto) 0.3 10 ^3/uL (0-0.8); Lymphocytes # (auto) 3.5 10 ^3/uL (0.4-5.4)
[2023-01-11 09:29] LABS: Basophils % (auto) 0.6 % (0.0-2.0); Eosinophils % (auto) 2.3 % (0.0-7.0); Hematocrit 37.9 % (36.0-46.0); Hemoglobin 11.7 g/dL (12.2-16.2); Lymphocytes % (auto) 24.8 % (10.0-50.0); Mean Corpuscular Hemoglobin 20.4 pg (28.0-32.0); Mean Corpuscular Hgb Conc. 30.9 g/dL (32.0-36.0); Mean Corpuscular Volume 65.9 fL (80.0-100.0); Monocytes # (auto) 0.9 10 ^3/uL (0-1.3); Monocytes % (auto) 6.4 % (0.0-12.0); Neutrophils # (auto) 9.5 10 ^3/uL (1.6-8.6); Neutrophils % (auto) 65.9 % (37.0-80.0); Red Blood Cells 5.75 10^6/uL (4.0-5.20); White Blood Cell 14.3 10^3/uL (4.4-10.8)
[2023-01-11 09:56] LABS: Alanine Aminotransferase 40 U/L (7-40); Alkaline Phosphatase 47 U/L (46-116); Anion Gap 10 (5-15); Aspartate Aminotransferase 43 U/L (13-40); BUN/Creatinine Ratio 7.7 (10.0-20.0); Blood Urea Nitrogen 6 mg/dL (9-23); Calcium 9.8 mg/dL (8.5-10.1); Carbon Dioxide 25 mmol/L (20-30); Chloride 98 mmol/L (98-107); Glucose 100 mg/dL (74-106); Potassium 3.4 mmol/L (3.5-5.1); Sodium 133 mmol/L (136-145); Total Protein 7.8 g/dL (5.7-8.2)
[2023-01-11 10:05] LABS: Lipase 60 U/L (12-53)
[2023-01-11] MEDS ORDERED: SODIUM CHLORIDE 0.9% 1,000 ML IV SCH (11:15)
[2023-01-11] MEDS ORDERED: KETOROLAC TROMETH 60MG/2ML VIAL IV PRN (11:15)
[2023-01-11] MEDS ORDERED: MORPHINE SULFATE INJ 2 MG/ml SYRG IV PRN (11:15)
[2023-01-11] MEDS ORDERED: NITROGLYCERIN 0.4 MG SL TAB SL PRN (11:15)
[2023-01-11 11:43] LABS: Amphetamine Screen, Urine Neg (NEGATIVE); Barbiturate Scree,Urine Neg (NEGATIVE); Benzodiazephine Screen, Urine Neg (NEGATIVE); Cocaine Screen, Urine Neg (NEGATIVE); Opiate Scree,Urine Neg (NEGATIVE); Phencyclidine Screen, Urine Neg (NEGATIVE)
[2023-01-11 11:44] LABS: Cannabinoid Screen, Urine Pos (NEGATIVE)
[2023-01-11] MEDS ORDERED: cefTRIAXone 1GM/50ML D5W 50 ML IV ONE (11:45)
[2023-01-11] MEDS: D5W/SOD CHL 0.45%/KCL 20MEQ 1,000 ML IV SCH (15:31)
[2023-01-11 16:18] LABS: INR 1.1 (0.9-1.15); Partial Thromboplastin Time 25.1 SEC (24.5-34.5); Prothrombin Time 11.5 sec (9.3-11.8)
[2023-01-11 20:02] VITALS: PULSE 91; RESP 16; O2SAT 100
[2023-01-11 20:46] VITALS: RESP 18; O2SAT 98
[2023-01-11] MEDS ORDERED: METF-370 PO (21:07)
[2023-01-11] MEDS: FAMOTIDINE (10MG/ML) 2ML VL IV SCH (22:29)
[2023-01-12] VITALS (10 sets, daily range): BP systolic 113–123; BP diastolic 54–81; PULSE 62–98; RESP 14–19; TEMP 97.3–99.1; O2SAT 95–99
[2023-01-12 05:50] LABS: INR 1.1 (0.9-1.15); Partial Thromboplastin Time 25.1 SEC (24.5-34.5); Prothrombin Time 11.5 sec (9.3-11.8)
[2023-01-12 05:58] LABS: Alanine Aminotransferase 58 U/L (7-40); Albumin 4.7 g/dL (3.2-4.8); Alkaline Phosphatase 45 U/L (46-116); Anion Gap 11 (5-15); Aspartate Aminotransferase 61 U/L (13-40); BUN/Creatinine Ratio 8.5 (10.0-20.0); Blood Urea Nitrogen 6 mg/dL (9-23); Calcium 9.4 mg/dL (8.5-10.1); Carbon Dioxide 23 mmol/L (20-30); Chloride 101 mmol/L (98-107); Glucose 105 mg/dL (74-106); Potassium 3.6 mmol/L (3.5-5.1); Sodium 135 mmol/L (136-145); Total Protein 7.3 g/dL (5.7-8.2)
[2023-01-12 06:01] LABS: Basophils # (auto) 0.2 10 ^3/uL (0-0.2); Eosinophils # (auto) 0.4 10 ^3/uL (0-0.8); Hemoglobin 11.4 g/dL (12.2-16.2); Lymphocytes # (auto) 2.5 10 ^3/uL (0.4-5.4); Monocytes # (auto) 0.8 10 ^3/uL (0-1.3); Nucleated Red Blood Cells % 0.1 %
[2023-01-12 06:03] LABS: Eosinophils % (auto) 4.6 % (0.0-7.0); Hematocrit 36.4 % (36.0-46.0); Lymphocytes % (auto) 27.6 % (10.0-50.0); Mean Corpuscular Hgb Conc. 31.3 g/dL (32.0-36.0); Mean Corpuscular Volume 67.1 fL (80.0-100.0); Monocytes % (auto) 8.6 % (0.0-12.0); Neutrophils # (auto) 5.2 10 ^3/uL (1.6-8.6); Neutrophils % (auto) 57.2 % (37.0-80.0); Red Blood Cells 5.42 10^6/uL (4.0-5.20); Red Cell Distribution Width 17.1 % (11.8-14.3); White Blood Cell 9.1 10^3/uL (4.4-10.8)
[2023-01-12] MEDS: D5W/SOD CHL 0.45%/KCL 20MEQ 1,000 ML IV SCH ×3 (06:31→16:55)
[2023-01-12 06:50] LABS: Lipase 59 U/L (12-53)
[2023-01-12 07:55] LABS: Platelet Estimate Increased
[2023-01-12 07:57] LABS: Hypochromia Moderate; Ovalocytes MODERATE
[2023-01-12] MEDS: FAMOTIDINE (10MG/ML) 2ML VL IV SCH ×2 (09:57→21:28)
[2023-01-12] MEDS ORDERED: ceFAZolin 1GM/50ML 100 ML IV ONE (10:23)
[2023-01-12] MEDS ORDERED: ONDANSETRON HCL 4 MG/2 ML VIAL ONE (10:25)
[2023-01-12] MEDS ORDERED: GLYCOPYRROLATE 0.2 MG/ML 1ML VIAL ONE (10:25)
[2023-01-12] MEDS ORDERED: PROPOFOL 10 MG/ML 20 ML IV ONE (10:25)
[2023-01-12] MEDS ORDERED: MEPERIDINE HCL (50 MG/ML) 1 ML VIAL ONE (10:25)
[2023-01-12] MEDS ORDERED: MIDAZOLAM HCL 2MG/2ML 2ml VIAL (1mg/ml) ONE (10:25)
[2023-01-12] MEDS ORDERED: fentaNYL CITRATE 100 MCG/2 ML VL ONE (10:25)
[2023-01-12] MEDS ORDERED: ROCURONIUM 10MG/ML 10ML VIAL IV ONE (10:25)
[2023-01-12] MEDS ORDERED: SODIUM CHLORIDE LOCK 10 ML ONE (10:25)
[2023-01-12] MEDS ORDERED: NEOSTIGMINE 1 MG/ML INJ (10mg/10ML VIAL) ONE (10:25)
[2023-01-12] MEDS ORDERED: HYDROCORTISONE SOD SUCC 100 MG/2ML INJ VIAL ONE (10:50)
[2023-01-12] MEDS ORDERED: LIDOCAINE 1%-Mpf/Epinephrine 1:200,000 30ml VIAL ONE (10:54)
[2023-01-12] MEDS ORDERED: BUPIVACAINE HCL 0.25% P/F 10 ML VIAL ONE (10:54)
[2023-01-12] MEDS ORDERED: MORPHINE SULFATE INJ 2 MG/ml SYRG IV PRN (12:30)
[2023-01-12] MEDS ORDERED: HYDROmorphone HCL 2 MG/ML VL/or syr IV PRN (12:30)
[2023-01-12] MEDS ORDERED: METOCLOPRAMIDE HCL 5MG/ml INJ 2ml VIAL IV PRN (12:30)
[2023-01-12] MEDS ORDERED: ACCU-CHEK COMFORT CURVE STRIP VI ONE (12:30)
[2023-01-12] MEDS: HYDROmorphone HCL 2 MG/ML VL/or syr IV PRN ×2 (12:35→13:16)
[2023-01-12] MEDS ORDERED: ALBUTEROL SULF 2.5 MG/0.5ML(0.5%) NEB SOLN NEB PRN (13:45)
[2023-01-12] MEDS: ONDANSETRON HCL 4 MG/2 ML VIAL IV PRN ×2 (16:53→22:52)
[2023-01-12] MEDS: HYDROcodone-ACET 5/325MG TAB PO PRN (16:54)
[2023-01-12] MEDS: metroNIDAZOLE 500MG/100ML 100 ML IV SCH ×2 (16:55→21:28)
[2023-01-13] VITALS (8 sets, daily range): BP systolic 113–146; BP diastolic 59–81; PULSE 58–82; RESP 16–21; TEMP 97.2–98.6; O2SAT 94–98
[2023-01-13] MEDS: D5W/SOD CHL 0.45%/KCL 20MEQ 1,000 ML IV SCH (00:05)
[2023-01-13] MEDS ORDERED: TEMAZEPAM 15 MG CAP PO ONE (02:15)
[2023-01-13] MEDS: ONDANSETRON HCL 4 MG/2 ML VIAL IV PRN (04:28)
[2023-01-13] MEDS: HYDROcodone-ACET 5/325MG TAB PO PRN (04:28)
[2023-01-13 05:28] LABS: Basophils # (auto) 0 10 ^3/uL (0-0.2); Basophils % (auto) 0.3 % (0.0-2.0); Eosinophils # (auto) 0 10 ^3/uL (0-0.8); Eosinophils % (auto) 0.1 % (0.0-7.0); Hematocrit 36.2 % (36.0-46.0); Hemoglobin 11.3 g/dL (12.2-16.2); Lymphocytes # (auto) 1.4 10 ^3/uL (0.4-5.4); Lymphocytes % (auto) 9.4 % (10.0-50.0); Mean Corpuscular Hemoglobin 20.8 pg (28.0-32.0); Mean Corpuscular Hgb Conc. 31.2 g/dL (32.0-36.0); Mean Corpuscular Volume 66.6 fL (80.0-100.0); Monocytes # (auto) 0.9 10 ^3/uL (0-1.3); Monocytes % (auto) 5.8 % (0.0-12.0); Neutrophils # (auto) 12.5 10 ^3/uL (1.6-8.6); Neutrophils % (auto) 84.4 % (37.0-80.0); Red Blood Cells 5.43 10^6/uL (4.0-5.20); Red Cell Distribution Width 17.1 % (11.8-14.3); White Blood Cell 14.9 10^3/uL (4.4-10.8)
[2023-01-13 05:43] LABS: Alanine Aminotransferase 161 U/L (7-40); Albumin 4.9 g/dL (3.2-4.8); Alkaline Phosphatase 55 U/L (46-116); Anion Gap 11 (5-15); Aspartate Aminotransferase 171 U/L (13-40); BUN/Creatinine Ratio 6.8 (10.0-20.0); Blood Urea Nitrogen 5 mg/dL (9-23); Calcium 9.9 mg/dL (8.7-10.4); Carbon Dioxide 20 mmol/L (20-30); Chloride 101 mmol/L (98-107); Potassium 4.3 mmol/L (3.5-5.1); Sodium 132 mmol/L (136-145)
[2023-01-13 05:44] LABS: Bilirubin, Total 0.9 mg/dL (0.2-1.0); Total Protein 7.6 g/dL (5.7-8.2)
[2023-01-13] MEDS: metroNIDAZOLE 500MG/100ML 100 ML IV SCH ×3 (06:26→21:35)
[2023-01-13 07:32] LABS: Glucose 128 mg/dL (74-106)
[2023-01-13 09:17] LABS: Hepatitis B Surface Antigen Negative (Negative)
[2023-01-13 09:38] LABS: Hepatitis C Antibody Negative (Negative)
[2023-01-13] MEDS: FAMOTIDINE (10MG/ML) 2ML VL IV SCH ×2 (10:17→21:35)
[2023-01-13] MEDS ORDERED: cefTRIAXone 1GM/50ML D5W 50 ML IV ONE (10:30)
[2023-01-14 05:00] VITALS: BP 107/66; PULSE 72; RESP 18; TEMP 98.6; O2SAT 96
[2023-01-14 05:37] LABS: Basophils # (auto) 0.1 10 ^3/uL (0-0.2); Eosinophils # (auto) 0.2 10 ^3/uL (0-0.8); Monocytes # (auto) 0.9 10 ^3/uL (0-1.3); Neutrophils # (auto) 8.1 10 ^3/uL (1.6-8.6)
[2023-01-14] MEDS: metroNIDAZOLE 500MG/100ML 100 ML IV SCH ×2 (05:38→14:38)
[2023-01-14 05:39] LABS: Eosinophils % (auto) 1.6 % (0.0-7.0); Hematocrit 36.5 % (36.0-46.0); Hemoglobin 11.3 g/dL (12.2-16.2); Lymphocytes # (auto) 3.4 10 ^3/uL (0.4-5.4); Lymphocytes % (auto) 26.7 % (10.0-50.0); Mean Corpuscular Hgb Conc. 30.9 g/dL (32.0-36.0); Mean Corpuscular Volume 68.1 fL (80.0-100.0); Monocytes % (auto) 7.1 % (0.0-12.0); Neutrophils % (auto) 63.6 % (37.0-80.0); Red Blood Cells 5.37 10^6/uL (4.0-5.20); Red Cell Distribution Width 16.9 % (11.8-14.3); White Blood Cell 12.7 10^3/uL (4.4-10.8)
[2023-01-14] MEDS: HYDROcodone-ACET 5/325MG TAB PO PRN (05:47)
[2023-01-14 05:53] LABS: Alanine Aminotransferase 155 U/L (7-40); Albumin 4.7 g/dL (3.2-4.8); Alkaline Phosphatase 51 U/L (46-116); Anion Gap 9 (5-15); Aspartate Aminotransferase 92 U/L (13-40); BUN/Creatinine Ratio 8.3 (10.0-20.0); Blood Urea Nitrogen 6 mg/dL (9-23); Calcium 9.2 mg/dL (8.7-10.4); Carbon Dioxide 22 mmol/L (20-30); Chloride 101 mmol/L (98-107); Glucose 90 mg/dL (74-106); Lipase 67 U/L (12-53); Potassium 3.7 mmol/L (3.5-5.1); Sodium 132 mmol/L (136-145)
[2023-01-14 05:54] LABS: Bilirubin, Total 0.7 mg/dL (0.2-1.0); Total Protein 7.4 g/dL (5.7-8.2)
[2023-01-14] MEDS: ONDANSETRON HCL 4 MG/2 ML VIAL IV PRN ×2 (07:06→11:24)
[2023-01-14 07:55] VITALS: O2SAT 98
[2023-01-14 08:00] VITALS: BP 137/89; PULSE 62; RESP 16; RESP 18; TEMP 97.7; O2SAT 95
[2023-01-14] MEDS ORDERED: ALPRAZolam 0.5 MG TAB PO PRN (09:00)
[2023-01-14] MEDS ORDERED: cefTRIAXone 1GM/50ML D5W 50 ML IV SCH (09:00)
[2023-01-14] MEDS: FAMOTIDINE (10MG/ML) 2ML VL IV SCH (09:02)
[2023-01-14] MEDS ORDERED: IBUPROFEN 600 MG TAB PO PRN (11:30)
[2023-01-14] MEDS ORDERED: PROMETHAZINE HCL 25 MG/ML 1ML IV PRN (11:30)
[2023-01-14 12:00] VITALS: BP 131/78; PULSE 58; RESP 18; TEMP 97.7; O2SAT 98
[2023-01-14] MEDS ORDERED: SENNA 8.6 MG TAB PO ONE (12:30)
[2023-01-14] MEDS ORDERED: METOCLOPRAMIDE HCL 5MG/ml INJ 2ml VIAL IV SCH (14:00)
[2023-01-14] MEDS ORDERED: CEPH250C PO (15:05)
[2023-01-14] MEDS ORDERED: IBUP-1454 PO (15:05)
[2023-01-14] MEDS ORDERED: PROM25TA10 PO (15:05)
[2023-01-14 16:00] VITALS: BP 129/65; PULSE 58; RESP 16; TEMP 97.9; O2SAT 98
== END 2023-01-14 18:14 | disposition home health service (06) | DRG 263 ==
LOC: ER 08:51 → OVERFLOW 11:20 → WEST WING 20:40
PROVIDERS: ADMIT Hospitalist; ATTEND Hospitalist
PROC: 0FT44ZZ Resection of Gallbladder, Percutaneous Endoscopic Approach (ICD-10-PCS; principal; 2023-01-12 11:01)
DX: K80.62 Calculus of gallbladder and bile duct with acute cholecystitis without obstruction (principal); E27.1 Primary adrenocortical insufficiency; E03.9 Hypothyroidism, unspecified; E66.01 Morbid (severe) obesity due to excess calories; F41.9 Anxiety disorder, unspecified; E11.9 Type 2 diabetes mellitus without complications; N39.0 Urinary tract infection, site not specified; Z79.84 Long term (current) use of oral hypoglycemic drugs; Z82.49 Family history of ischemic heart disease and other diseases of the circulatory system; Z68.36 Body mass index [BMI] 36.0-36.9, adult
CPT/HCPCS: 36415; 76705; 78226; 80053; 80307; 81001; 81025; 82247; 82962; 83690; 85025; 85610; 85730; 86803; 86850; 86900; 86901; 87340; 96361; 96365; G0378; J0690; J0696; J2250; J2405; J2704; J3490

== ENCOUNTER 2023-03-28 12:23 | Inpatient (IN) | payer MEDICAID ==
[~2023-03-28] VITALS: Ht 160 cm; Wt 92.9 kg
[~2023-03-28 12:23] MED LIST changes: -ACET-1881 PO; -AMOXSUS6 PO; +CEPH250C PO; +IBUP-1454 PO; -LEVO500T31 PO; -LEVO50TA7 PO; +METF-370 PO; -NITR-87 PO; +PROM25TA10 PO
[2023-03-28] MEDS ORDERED: SODIUM CHLORIDE 0.9% 1,000 ML IV ONE (12:45)
[2023-03-28 13:25] LABS: Basophils # (auto) 0.2 10 ^3/uL (0-0.2); Eosinophils # (auto) 0.3 10 ^3/uL (0-0.8); Eosinophils % (auto) 1.2 % (0.0-7.0); Mean Corpuscular Volume 69.5 fL (80.0-100.0); Monocytes # (auto) 1.2 10 ^3/uL (0-1.3); Neutrophils # (auto) 18.9 10 ^3/uL (1.6-8.6)
[2023-03-28 13:28] LABS: Basophils % (auto) 0.8 % (0.0-2.0); Hematocrit 41.1 % (36.0-46.0); Hemoglobin 12.7 g/dL (12.2-16.2); Lymphocytes # (auto) 3.1 10 ^3/uL (0.4-5.4); Lymphocytes % (auto) 13.1 % (10.0-50.0); Mean Corpuscular Hemoglobin 21.5 pg (28.0-32.0); Mean Corpuscular Hgb Conc. 30.9 g/dL (32.0-36.0); Neutrophils % (auto) 79.9 % (37.0-80.0); Red Blood Cells 5.91 10^6/uL (4.0-5.20); Red Cell Distribution Width 17.5 % (11.8-14.3); White Blood Cell 23.6 10^3/uL (4.4-10.8)
[2023-03-28] MEDS ORDERED: MORPHINE SULFATE 4 MG/ML SYR/VIAL IV ONE ×2 (13:30→18:00)
[2023-03-28 13:44] LABS: Alanine Aminotransferase 102 U/L (7-40); Albumin 5.2 g/dL (3.2-4.8); Alkaline Phosphatase 59 U/L (46-116); Anion Gap 18 (5-15); Aspartate Aminotransferase 87 U/L (13-40); BUN/Creatinine Ratio 8.3 (10.0-20.0); Bilirubin, Total 0.8 mg/dL (0.2-1.0); Blood Urea Nitrogen 6 mg/dL (9-23); Calcium 9.9 mg/dL (8.7-10.4); Carbon Dioxide 13 mmol/L (20-30); Chloride 103 mmol/L (98-107); Glucose 175 mg/dL (74-106); Potassium 3.7 mmol/L (3.5-5.1); Sodium 134 mmol/L (136-145)
[2023-03-28] MEDS ORDERED: ONDANSETRON HCL 4 MG/2 ML VIAL IV ONE ×2 (14:15→18:00)
[2023-03-28 18:00] VITALS: PULSE 71; RESP 17; O2SAT 100
[2023-03-28] MEDS ORDERED: LACTATED RINGER'S 1,000 ML IV SCH (18:00)
[2023-03-28] MEDS ORDERED: ceFAZolin 2 GM/D5W100ml 100 ML IV ONE (18:00)
[2023-03-28] MEDS ORDERED: ONDANSETRON HCL 4 MG/2 ML VIAL IV PRN ×2 (18:15→22:15)
[2023-03-28] MEDS ORDERED: HYDROcodone-ACET 10/325MG TAB PO PRN (18:15)
[2023-03-28] MEDS ORDERED: MIDAZOLAM HCL 2MG/2ML 2ml VIAL (1mg/ml) ONE (19:20)
[2023-03-28] MEDS ORDERED: HYDROmorphone HCL 2 MG/ML VL/or syr ONE (19:20)
[2023-03-28] MEDS ORDERED: fentaNYL CITRATE 100 MCG/2 ML VL ONE (19:20)
[2023-03-28] MEDS ORDERED: ONDANSETRON HCL 4 MG/2 ML VIAL ONE (19:21)
[2023-03-28] MEDS ORDERED: LIDOCAINE 2% (LOCAL ANESTH.) PF 5ml SDV ONE (19:21)
[2023-03-28] MEDS ORDERED: PROPOFOL 10 MG/ML 20 ML IV ONE (19:21)
[2023-03-28] MEDS ORDERED: GLYCOPYRROLATE 0.2 MG/ML 1ML VIAL ONE (19:21)
[2023-03-28] MEDS ORDERED: HYDROCORTISONE SOD SUCC 100 MG/2ML INJ VIAL ONE (19:21)
[2023-03-28 19:36] LABS: INR 1.12 (0.9-1.15); Partial Thromboplastin Time 24.5 SEC (24.5-34.5); Prothrombin Time 11.7 sec (9.3-11.8)
[2023-03-28 21:31] LABS: Urine Bacteria NONE SEEN /hpf (None Seen); Urine Blood Negative /uL (Negative); Urine Clarity Clear (Clear); Urine Color Yellow (Yellow); Urine Mucus FEW (None Seen); Urine Protein, UAD TRACE (Negative); Urine Specific Gravity 1.013 (1.001-1.035); Urine Urobilinogen Normal (Negative); Urine WBC 1 /hpf (0 - 5)
[2023-03-28] MEDS ORDERED: FOLIC ACID 1 MG, MULTIPLE VITAMIN 10 ML, MAGNESIUM SULF SDV 50% 8 MEQ, THIAMINE INJ 100... INJ ONE ×5 (22:00)
[2023-03-28 22:10] VITALS: PULSE 89; RESP 23; O2SAT 100
[2023-03-28] MEDS ORDERED: ACCU-CHEK COMFORT CURVE STRIP VI ONE (22:15)
[2023-03-28] MEDS ORDERED: HYDROmorphone HCL 2 MG/ML VL/or syr IV PRN (22:15)
[2023-03-28 22:30] VITALS: PULSE 90; RESP 21; O2SAT 99
[2023-03-28 23:49] LABS: Calcium 8.8 mg/dL (8.7-10.4)
[2023-03-28 23:54] LABS: Magnesium 1.8 mg/dL (1.6-2.6)
[2023-03-28 23:56] LABS: Phosphorus 3.6 mg/dL (2.4-5.1)
[2023-03-29] VITALS (8 sets, daily range): BP systolic 90–109; BP diastolic 53–69; PULSE 78–109; RESP 15–19; TEMP 97.3–98.4; O2SAT 97–99
[2023-03-29] MEDS ORDERED: SERT-206 PO (01:11)
[2023-03-29 06:10] LABS: Alanine Aminotransferase 76 U/L (7-40); Albumin 4.2 g/dL (3.2-4.8); Alkaline Phosphatase 45 U/L (46-116); Anion Gap 10 (5-15); Aspartate Aminotransferase 51 U/L (13-40); BUN/Creatinine Ratio 16.7 (10.0-20.0); Blood Urea Nitrogen 11 mg/dL (9-23); Calcium 9.1 mg/dL (8.7-10.4); Carbon Dioxide 21 mmol/L (20-30); Chloride 105 mmol/L (98-107); Glucose 143 mg/dL (74-106); Potassium 4.8 mmol/L (3.5-5.1); Sodium 136 mmol/L (136-145)
[2023-03-29 06:11] LABS: Bilirubin, Total 0.5 mg/dL (0.2-1.0); Total Protein 6.2 g/dL (5.7-8.2)
[2023-03-29 07:19] LABS: Hematocrit 37.9 % (36.0-46.0); Hemoglobin 11.3 g/dL (12.2-16.2); Mean Corpuscular Hemoglobin 21.4 pg (28.0-32.0); Mean Corpuscular Hgb Conc. 29.9 g/dL (32.0-36.0); Mean Corpuscular Volume 71.7 fL (80.0-100.0); Red Blood Cells 5.29 10^6/uL (4.0-5.20); White Blood Cell 14.2 10^3/uL (4.4-10.8)
[2023-03-29 07:35] LABS: Band Neutrophils % (manual) 0; Basophils % (manual) 0 (0.0-2.0); Blast Cells 0; Eosinophils % (manual) 0 (0-7); Metamyelocytes % 0; Monocytes % (manual) 0 (0-12); Myelocytes % 0; Promyelocytes % 0; Reactive Lymphocytes 0
[2023-03-29] MEDS: PANTOPRAZOLE 40 MG TAB PO SCH (10:08)
[2023-03-29 11:06] LABS: Lymphocytes % (manual) 2 (10.0-50.0); Platelet Estimate Adequate
[2023-03-29] MEDS: HYDROcodone-ACET 5/325MG TAB PO PRN (12:25)
[2023-03-29] MEDS ORDERED: ALPRAZolam 0.5 MG TAB PO ONE (16:45)
[2023-03-29] MEDS: busPIRone HCL 10 MG TAB PO SCH (17:11)
[2023-03-30 02:13] VITALS: BP 99/51; PULSE 90; RESP 18; O2SAT 95
[2023-03-30] MEDS: HYDROcodone-ACET 5/325MG TAB PO PRN (02:14)
[2023-03-30 05:00] VITALS: BP 97/54; PULSE 85; RESP 18; TEMP 98; O2SAT 95
[2023-03-30 06:17] LABS: Basophils # (auto) 0 10 ^3/uL (0-0.2); Hemoglobin 9.8 g/dL (12.2-16.2); Mean Corpuscular Hemoglobin 21.6 pg (28.0-32.0); Red Blood Cells 4.53 10^6/uL (4.0-5.20)
[2023-03-30 06:19] LABS: Basophils % (auto) 0.4 % (0.0-2.0); Eosinophils # (auto) 0.1 10 ^3/uL (0-0.8); Eosinophils % (auto) 0.4 % (0.0-7.0); Hematocrit 31.3 % (36.0-46.0); Lymphocytes # (auto) 2.8 10 ^3/uL (0.4-5.4); Lymphocytes % (auto) 21.7 % (10.0-50.0); Mean Corpuscular Hgb Conc. 31.3 g/dL (32.0-36.0); Mean Corpuscular Volume 69.1 fL (80.0-100.0); Monocytes # (auto) 0.9 10 ^3/uL (0-1.3); Monocytes % (auto) 6.8 % (0.0-12.0); Neutrophils # (auto) 9.2 10 ^3/uL (1.6-8.6); Neutrophils % (auto) 70.7 % (37.0-80.0); Red Cell Distribution Width 17.3 % (11.8-14.3)
[2023-03-30 06:29] LABS: Alanine Aminotransferase 47 U/L (7-40); Alkaline Phosphatase 40 U/L (46-116); Anion Gap 9 (5-15); Aspartate Aminotransferase 29 U/L (13-40); BUN/Creatinine Ratio 8.3 (10.0-20.0); Bilirubin, Total 0.4 mg/dL (0.2-1.0); Blood Urea Nitrogen 5 mg/dL (9-23); Calcium 8.7 mg/dL (8.7-10.4); Carbon Dioxide 24 mmol/L (20-30); Chloride 104 mmol/L (98-107); Glucose 90 mg/dL (74-106); Potassium 3.7 mmol/L (3.5-5.1); Sodium 137 mmol/L (136-145)
[2023-03-30 06:30] LABS: Total Protein 6.2 g/dL (5.7-8.2)
[2023-03-30 07:30] VITALS: PULSE 81; RESP 16
[2023-03-30 08:00] VITALS: BP 95/56; PULSE 81; RESP 16; TEMP 98.5; O2SAT 93
[2023-03-30] MEDS ORDERED: HYDR-4902 PO (08:15)
[2023-03-30] MEDS: busPIRone HCL 10 MG TAB PO SCH (10:28)
[2023-03-30] MEDS: PANTOPRAZOLE 40 MG TAB PO SCH (10:28)
[2023-03-30 16:56] VITALS: BP_SYST 107; BP_SYST 99; BP_DIAS 56; BP_DIAS 57; PULSE 81; PULSE 98; RESP 16; RESP 18; TEMP 98.6; TEMP 99.9; O2SAT 93; O2SAT 95
[2023-03-31 09:16] LABS: Hepatitis B Surface Antigen Negative (Negative)
[2023-03-31 09:37] LABS: Hepatitis C Antibody Negative (Negative)
== END 2023-03-30 18:45 | disposition home or self-care (01) | DRG 518 ==
LOC: ER 12:23 → EAST 18:01 → OVERFLOW 18:01 → EAST 23:10
PROVIDERS: ADMIT Obstetrics & Gynecology; ATTEND Obstetrics & Gynecology
PROC: 0UB70ZZ Excision of Bilateral Fallopian Tubes, Open Approach (ICD-10-PCS; principal; 2023-03-28 20:42)
DX: N83.8 Other noninflammatory disorders of ovary, fallopian tube and broad ligament (principal); K76.0 Fatty (change of) liver, not elsewhere classified; E27.1 Primary adrenocortical insufficiency; E66.9 Obesity, unspecified; E11.9 Type 2 diabetes mellitus without complications; D72.829 Elevated white blood cell count, unspecified; F41.9 Anxiety disorder, unspecified; Z68.36 Body mass index [BMI] 36.0-36.9, adult; T51.0X1A Toxic effect of ethanol, accidental (unintentional), initial encounter
CPT/HCPCS: 36415; 74176; 80053; 81001; 82150; 82310; 82962; 83036; 83690; 83735; 84100; 84443; 84702; 85007; 85025; 85027; 85610; 85730; 86803; 86850; 86900; 86901; 87340; 96361; 96365; 96375; 96376; G0378; J2001; J2250; J2405; J2704; J7060

== ENCOUNTER 2024-01-02 20:07 | Emergency (ER) | payer MEDICAID ==
[~2024-01-02] VITALS: Ht 154.9 cm; Wt 80.0 kg
[~2024-01-02 20:07] MED LIST changes: +HYDR-4902 PO; +SERT-206 PO
[2024-01-02 21:00] VITALS: PULSE 70; RESP 20; O2SAT 95
[2024-01-02 21:06] LABS: Alanine Aminotransferase 67 U/L (7-40); Albumin 5.2 g/dL (3.2-4.8); Alkaline Phosphatase 56 U/L (46-116); Anion Gap 15 (5-15); Aspartate Aminotransferase 47 U/L (13-40); BUN/Creatinine Ratio 11.7 (10.0-20.0); Blood Urea Nitrogen 9 mg/dL (9-23); Calcium 10.2 mg/dL (8.7-10.4); Carbon Dioxide 18 mmol/L (20-31); Chloride 100 mmol/L (98-107); Glucose 123 mg/dL (74-106); Lipase 48 U/L (12-53); Potassium 4.2 mmol/L (3.5-5.1); Sodium 133 mmol/L (136-145); Total Protein 8.1 g/dL (5.7-8.2)
[2024-01-02] MEDS: PANTOPRAZOLE 40 MG/10 ML VIAL INJ IV ONE (21:17)
[2024-01-02] MEDS: SODIUM CHLORIDE 0.9% 1,000 ML IV ONE (21:17)
[2024-01-02] MEDS: PROCHLORPERAZINE EDISYLATE 5 MG/ML 2ML VIAL IV ONE (21:17)
[2024-01-02 22:16] LABS: Basophils # (auto) 0.1 10 ^3/uL (0-0.2); Basophils % (auto) 0.8 % (0.0-2.0); Eosinophils # (auto) 0.2 10 ^3/uL (0-0.8); Hemoglobin 12.5 g/dL (12.2-16.2); Mean Corpuscular Hemoglobin 20.5 pg (28.0-32.0); Mean Corpuscular Volume 67.1 fL (80.0-100.0)
[2024-01-02 22:18] LABS: Eosinophils % (auto) 1.7 % (0.0-7.0); Lymphocytes # (auto) 2.1 10 ^3/uL (0.4-5.4); Lymphocytes % (auto) 17.6 % (10.0-50.0); Mean Corpuscular Hgb Conc. 30.5 g/dL (32.0-36.0); Monocytes % (auto) 8.4 % (0.0-12.0); Neutrophils # (auto) 8.5 10 ^3/uL (1.6-8.6); Neutrophils % (auto) 71.5 % (37.0-80.0); Platelet Count (auto) 416 10^3/uL (140-450); Red Blood Cells 6.11 10^6/uL (4.0-5.20); Red Cell Distribution Width 17.8 % (11.8-14.3); White Blood Cell 11.9 10^3/uL (4.4-10.8)
[2024-01-03 02:00] VITALS: BP 144/64; RESP 16; O2SAT 94
[2024-01-03 04:00] VITALS: PULSE 83
[2024-01-04] MEDS ORDERED: PANT40TA2 PO (08:01)
[2024-01-04] MEDS ORDERED: ZOFR4T PO (08:01)
[2024-01-04] MEDS ORDERED: CIPR-173 PO (08:01)
== END 2024-01-03 03:35 | disposition home or self-care (01) ==
LOC: ER 20:07 → EDBD 20:07 → ER 01-03 03:35
DX: J02.9 Acute pharyngitis, unspecified (principal); R10.2 Pelvic and perineal pain; R10.13 Epigastric pain; R11.2 Nausea with vomiting, unspecified; F12.90 Cannabis use, unspecified, uncomplicated; I10 Essential (primary) hypertension; E11.9 Type 2 diabetes mellitus without complications; E03.9 Hypothyroidism, unspecified; F41.9 Anxiety disorder, unspecified; Z90.49 Acquired absence of other specified parts of digestive tract; Z79.84 Long term (current) use of oral hypoglycemic drugs; Z79.899 Other long term (current) drug therapy
CPT/HCPCS: 36415; 74176; 80053; 83690; 84702; 96361; 96374; 96375; 99285; J0780; J2470; J7030

== ENCOUNTER 2024-01-04 07:01 | Emergency (ER) | payer MEDICAID ==
[~2024-01-04] VITALS: Ht 160 cm; Wt 91.7 kg
[2024-01-04 07:32] LABS: Urine Bacteria None Seen /hpf (None Seen)
[2024-01-04 07:35] VITALS: BP 121/73; TEMP 97.8
[2024-01-04] MEDS: SODIUM CHLORIDE 0.9% 1,000 ML IVB ONE (07:44)
[2024-01-04 07:49] LABS: Urine Amorphous Crystal FEW /hpf (None Seen); Urine Blood TRACE /uL (Negative); Urine Clarity Ex.Turbid (Clear); Urine Color Yellow (Yellow); Urine Mucus FEW (None Seen); Urine Protein, UAD 1+ (Negative); Urine Specific Gravity 1.031 (1.001-1.035); Urine Urobilinogen Normal (Negative); Urine WBC 30 /hpf (0 - 5)
[2024-01-04] MEDS: PROCHLORPERAZINE EDISYLATE 5 MG/ML 2ML VIAL IV ONE (07:52)
[2024-01-04] MEDS: PANTOPRAZOLE 40 MG/10 ML VIAL INJ IV ONE (07:52)
[2024-01-04 07:54] LABS: Basophils # (auto) 0.1 10 ^3/uL (0-0.2); Basophils % (auto) 0.7 % (0.0-2.0); Eosinophils # (auto) 0.2 10 ^3/uL (0-0.8); Eosinophils % (auto) 1.7 % (0.0-7.0); Hematocrit 40.7 % (36.0-46.0); Hemoglobin 12.7 g/dL (12.2-16.2); Lymphocytes # (auto) 2.1 10 ^3/uL (0.4-5.4); Mean Corpuscular Hemoglobin 21.4 pg (28.0-32.0); Mean Corpuscular Hgb Conc. 31.1 g/dL (32.0-36.0); Mean Corpuscular Volume 68.8 fL (80.0-100.0); Monocytes # (auto) 0.5 10 ^3/uL (0-1.3); Monocytes % (auto) 4.1 % (0.0-12.0); Neutrophils # (auto) 8.6 10 ^3/uL (1.6-8.6); Neutrophils % (auto) 75.5 % (37.0-80.0); Nucleated Red Blood Cells % 0.1 %; Platelet Count (auto) 450 10^3/uL (140-450); Red Blood Cells 5.92 10^6/uL (4.0-5.20); Red Cell Distribution Width 17.9 % (11.8-14.3); White Blood Cell 11.4 10^3/uL (4.4-10.8)
[2024-01-04] MEDS ORDERED: ZOFR4T PO (08:01)
[2024-01-04] MEDS ORDERED: CIPR-173 PO (08:01)
[2024-01-04] MEDS ORDERED: PANT40TA2 PO (08:01)
[2024-01-04 08:04] VITALS: PULSE 61; RESP 16; O2SAT 98
== END 2024-01-04 08:48 | disposition home or self-care (01) ==
LOC: ER 07:01
DX: N39.0 Urinary tract infection, site not specified (principal); F12.90 Cannabis use, unspecified, uncomplicated; R11.11 Vomiting without nausea; I10 Essential (primary) hypertension; E11.9 Type 2 diabetes mellitus without complications; F41.9 Anxiety disorder, unspecified; E03.9 Hypothyroidism, unspecified; F15.90 Other stimulant use, unspecified, uncomplicated; Z90.49 Acquired absence of other specified parts of digestive tract; Z79.899 Other long term (current) drug therapy
CPT/HCPCS: 36415; 81001; 85025; 96361; 96374; 96375; 99284; J0780; J2470; J7030

== ENCOUNTER 2024-01-05 21:53 | Emergency (ER) | payer MEDICAID ==
[~2024-01-05] VITALS: Ht 160 cm; Wt 89.7 kg
[~2024-01-05 21:53] MED LIST changes: +CIPR-173 PO; +PANT40TA2 PO; +ZOFR4T PO
[2024-01-05 22:24] LABS: Eosinophils # (auto) 0.6 10 ^3/uL (0-0.8); Hemoglobin 12.9 g/dL (12.2-16.2); Lymphocytes # (auto) 3.4 10 ^3/uL (0.4-5.4); Monocytes # (auto) 0.6 10 ^3/uL (0-1.3); Monocytes % (auto) 5.4 % (0.0-12.0); Neutrophils # (auto) 6.8 10 ^3/uL (1.6-8.6); Red Cell Distribution Width 17.3 % (11.8-14.3)
[2024-01-05 22:25] LABS: Basophils # (auto) 0.2 10 ^3/uL (0-0.2); Basophils % (auto) 1.5 % (0.0-2.0); Eosinophils % (auto) 5.3 % (0.0-7.0); Lymphocytes % (auto) 29.3 % (10.0-50.0); Mean Corpuscular Hemoglobin 21.2 pg (28.0-32.0); Mean Corpuscular Hgb Conc. 31.5 g/dL (32.0-36.0); Mean Corpuscular Volume 67.4 fL (80.0-100.0); Neutrophils % (auto) 58.5 % (37.0-80.0); Nucleated Red Blood Cells % 0.2 %; Platelet Count (auto) 390 10^3/uL (140-450); Red Blood Cells 6.08 10^6/uL (4.0-5.20); White Blood Cell 11.6 10^3/uL (4.4-10.8)
[2024-01-05 22:45] LABS: Alanine Aminotransferase 57 U/L (7-40); Albumin 4.9 g/dL (3.2-4.8); Alkaline Phosphatase 46 U/L (46-116); Anion Gap 11 (5-15); Aspartate Aminotransferase 40 U/L (13-40); BUN/Creatinine Ratio 7.2 (10.0-20.0); Blood Urea Nitrogen 5 mg/dL (9-23); Carbon Dioxide 21 mmol/L (20-31); Chloride 102 mmol/L (98-107); Glucose 104 mg/dL (74-106); Potassium 3.6 mmol/L (3.5-5.1); Sodium 134 mmol/L (136-145)
[2024-01-05 22:46] LABS: Bilirubin, Total 0.5 mg/dL (0.2-1.0); Total Protein 7.7 g/dL (5.7-8.2)
[2024-01-05 23:00] LABS: Lipase 48 U/L (12-53)
[2024-01-06] MEDS: ASPirin-EC 325mg tab PO ONE (01:07)
[2024-01-06] MEDS: ONDANSETRON ODT 4 MG TAB PO ONE (01:08)
[2024-01-06 01:12] VITALS: BP 132/82; PULSE 75; RESP 18; O2SAT 97
[2024-01-06] MEDS: SODIUM CHLORIDE 0.9% 1,000 ML IV ONE (01:14)
[2024-01-06] MEDS: NITROGLYCERIN 0.4 MG SL TAB SL ONE (01:14)
== END 2024-01-06 01:13 | disposition home or self-care (01) ==
LOC: ER 21:53
DX: R07.9 Chest pain, unspecified (principal); E11.9 Type 2 diabetes mellitus without complications; F41.9 Anxiety disorder, unspecified; I10 Essential (primary) hypertension; Z79.899 Other long term (current) drug therapy; Z90.49 Acquired absence of other specified parts of digestive tract
CPT/HCPCS: 36415; 71045; 80053; 83605; 83690; 83735; 83880; 84484; 85025; 93005; Q0162

== ENCOUNTER 2024-04-09 13:40 | Emergency (ER) | payer MEDICAID ==
[~2024-04-09] VITALS: Ht 160 cm; Wt 90.0 kg
--- NOTE | 2024-04-09 14:06 | ED.PDOC ---
GI ASSESSMENT HPI Comments 29 y.o female with PMHx of hypothyroidism, Sherburne's disease, HTN, DM and anxiety, presents to the ED via EMS for a chief complaint of nausea and vomiting that started one day ago. Patient is unable to hold anything down and due to continuos vomiting, is now having abdominal discomfort. EMS reports patient was taken off her thyroid medication recently by PCP, tried to take it yesterday and today but ended up vomiting it back up. Patient denies any fever, chills, diarrhea. Chief Complaint: Nausea/Vomiting Time Seen by MD: 13:56 Primary Care Provider: ISMAEL Reviewed Notes: Nurses Notes, Medications, Allergies Allergies: Coded Allergies: NO KNOWN ALLERGIES (Unverified , 04/28/19) Home Meds Active Scripts Ciprofloxacin Hcl (Cipro) 500 Mg Tab, 1 TAB PO BID, #14 TAB Prov:JIM BOSTON MD 01/04/24 Ondansetron Odt 4MG Tab (ZOFRAN PO) 4 Mg Tb, 4 MG PO Q8HP PRN for 5 Days, #15 TAB ODT TAB-DISSOLVE IN MOUTH, THEN SWALLOW Prov:JIM BOSTON MD 01/04/24 Pantoprazole Sodium Sesquihydr (Protonix) 40 Mg Tab, 40 MG PO DAILY, #30 TAB Prov:JIM BOSTON MD 01/04/24 Hydrocodone-Acetaminophen (Hydrocodone Bitartrate/AC 5-325 mg) 1 Tab Tab, 1 TAB PO Q6HP PRN, #20 TAB Prov:ENRRIQUE VIRK DO 03/30/23 Cephalexin (KEFLEX CAPSULE) 250 Mg Cp, 1 CAP PO TIDWM, #15 CAP Prov:LUIS GUZMAN MD 01/14/23 Promethazine Hcl (Promethazine Hcl) 25 Mg Tab, 1 TAB PO Q6HPRN PRN, #14 TAB Prov:LUIS GUZMAN MD 01/14/23 Ibuprofen (Ibuprofen) 600 Mg Tab, 1 TAB PO TID PRN, #20 TAB Prov:LUIS GUZMAN MD 01/14/23 Fludrocortisone Acetate (Fludrocortisone Acetate) 0.1 Mg Tab, 0.1 MG PO DAILY, #30 TAB Prov:CHUY HERZOG MD 06/16/19 Hydrocortisone Base (Hydrocortisone) 20 Mg Tab, 50 MG PO TID, #90 TAB Prov:CHUY HERZOG MD 06/16/19 Reported Medications Sertraline Hcl (Sertraline Hcl) 50 Mg Tab, 100 MG PO DAILY for 30 Days, MG 03/29/23 Metformin Hydrochloride (Metformin Hcl) 500 Mg Tab, 500 MG PO IBID for 30 Days, MG 01/11/23 Information Source: Patient Mode of Arrival: EMS Timing: Days (1) Duration: Since onset Quality: Aching Vomitus: Hard Stool: Normal Severity: Moderate Recent: None Recent Hx of: None Pain Location: Diffuse Modifying Factors: Nothing Associated sign and symptoms: Nausea, Vomiting, Abdominal Pain Past Medical History PAST MEDICAL HISTORY: Anxiety, DM, HTN, Thyroid Past Medical History (Other): Sherburne disease 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 Family History Family History: Reviewed,noncontributory to illness Social History Smoker: Non-Smoker Alcohol: Occasionally Drugs: Marijuana Lives In: Home Constitutional: denies: chills, diaphoresis, fatigue, fever, malaise, sweats, weakness, others EENTM: denies: blurred vision, double vision, ear bleeding, ear discharge, ear drainage, ear pain, ear ringing, eye pain, eye redness, hearing loss, mouth pain, mouth swelling, nasal discharge, nose bleeding, nose congestion, nose pain, photophobia, tearing, throat pain, throat swelling, voice changes, others Respiratory: denies: cough, hemoptysis, orthopnea, SOB at rest, shortness of breath, SOB with excertion, stridor, wheezing, others Cardiovascular: denies: chest pain, dizzy spells, diaphoresis, Dyspnea on exertion, edema, irregular heart beat, left arm pain, lightheadedness, palpitations, PND, syncope, others Gastrointestinal: reports: abdominal pain, nausea, vomiting; denies: abdomen distended, blood streaked bowels, constipated, diarrhea, dysphagia, difficulty swallowing, hematemesis, melena, poor appetite, poor fluid intake, rectal bleeding, rectal pain, others Genitourinary: denies: abnormal vagina bleeding, burning, dyspareunia, dysuria, flank pain, frequency, hematuria, incontinence, pain, , vagina discharge, urgency, others Neurological: denies: dizziness, fainting, headache, left sided numbness, left sided weakness, numbness, paresthesia, pre-existing deficit, right sided numbness, right sided weakness, seizure, speech problems, tingling, tremors, weakness, others Musculoskeletal: denies: back pain, gout, joint pain, joint swelling, muscle pain, muscle stiffness, neck pain, others Integumetry: denies: bruises, change in color, change in hair/nails, dryness, laceration, lesions, lumps, rash, wounds, others Allergic/Immunocompromised: denies: Difficulty Healing, Frequent Infections, Hives, Itching, others Hematologic/Lymphatic: denies: anemia, blood clots, easy bleeding, easy bruisi ng, swollen glands, others Endocrine: denies: excessive hunger, excessive sweating, excessive thirst, exce ssive urination, flushing, intolerance to cold, intolerance to heat, unexplained weight gain, unexplained weight loss, others Psychiatric: denies: anxiety, bipolar disorder, depression, hopeless, panic disorder, schizophrenia, sleepless, suicidal, others All Other Systems: Reviewed and Negative Physical Exam General Appearance: Mild Distress HEENT: Normal ENT Inspection, Pharynx Normal, TMs Normal Neck: Full Range of Motion, Non-Tender, Normal, Normal Inspection Respiratory: Chest Non-Tender, Lungs Clear, No Accessory Muscle Use, No Respiratory Distress, Normal Breath Sounds Cardiovascular: No Edema, No JVD, No Murmur, No Gallop, Normal Peripheral Pulses, Regular Rate/Rhythm Breast Exam: Deferred Gastrointestinal: No Organomegaly, Non Tender, No Pulsatile Mass, Normal Bowel Sounds, Soft Genitalia: Deferred Pelvic: Deferred Rectal: Deferred Extremities: No calf tenderness, Normal capillary refill, Normal inspection, Normal range of motion, Non-tender, No pedal edema Musculoskeletal : Apperance: Normal Neurologic: Alert, family practice md II-XII nml as Tested, No Motor Deficits, Normal Affect, Normal Mood, No Sensory Deficits Cerebellar Function: Normal Reflexes: Normal Skin: Dry, Normal Color, Warm Lymphatic: No Adenopathy Was a procedure done? Was a procedure done?: No GI differential Dx Differential Diagnosis: Dehydration, Electrolyte Imbalance, Viral X-Ray, Labs, Meds, VS Vital Signs Date Time Temp Pulse Resp B/P (MAP) Pulse Ox O2 Delivery O2 Flow Rate FiO2 04/09/24 15:20 84 16 103/73 (83) 100 04/09/24 14:40 Room Air* 0 21 04/09/24 13:57 98.7 87 18 122/75 (91) 97 Lab Test 04/09/24 14:33 Range/Units White Blood Count 17.7 H 4.4-10.8 10^3/uL Red Blood Count 6.43 H 4.0-5.20 10^6/uL Hemoglobin 14.5 12.2-16.2 g/dL Hematocrit 46.8 H 36.0-46.0 % Mean Corpuscular Volume 72.7 L 80.0-100.0 fL Mean Corpuscular Hemoglobin 22.6 L 28.0-32.0 pg Mean Corpuscular Hemoglobin Concent 31.1 L 32.0-36.0 g/dL Red Cell Distribution Width 18.8 H 11.8-14.3 % Platelet Count 485 H 140-450 10^3/uL Mean Platelet Volume 7.9 6.9-10.8 fL Neutrophils (%) (Auto) 75.1 37.0-80.0 % Lymphocytes (%) (Auto) 17.6 10.0-50.0 % Monocytes (%) (Auto) 5.3 0.0-12.0 % Eosinophils (%) (Auto) 1.4 0.0-7.0 % Basophils (%) (Auto) 0.6 0.0-2.0 % Neutrophils # (Auto) 13.3 H 1.6-8.6 10 ^3/uL Lymphocytes # (Auto) 3.1 0.4-5.4 10 ^3/uL Monocytes # (Auto) 0.9 0-1.3 10 ^3/uL Eosinophils # (Auto) 0.2 0-0.8 10 ^3/uL Basophils # (Auto) 0.1 0-0.2 10 ^3/uL Nucleated Red Blood Cells 0.1 % Sodium Level 134 L 136-145 mmol/L Potassium Level 4.6 3.5-5.1 mmol/L Chloride Level 103 98-107 mmol/L Carbon Dioxide Level 18 L 20-31 mmol/L Anion Gap 13 5-15 Blood Urea Nitrogen 8 L 9-23 mg/dL Creatinine 0.66 0.550-1.02 mg/dL Glomerular Filtration Rate Calc 122 >90 mL/min BUN/Creatinine Ratio 12.1 10.0-20.0 Serum Glucose 115 H 74-106 mg/dL Calcium Level 11.2 H 8.7-10.4 mg/dL Total Bilirubin 1.1 H 0.2-1.0 mg/dL Aspartate Amino Transferase (AST) 64 H 13-40 U/L Alanine Aminotransferase (ALT) 83 H 7-40 U/L Alkaline Phosphatase 61 46-116 U/L Total Protein 8.6 H 5.7-8.2 g/dL Albumin 5.3 H 3.2-4.8 g/dL Lipase 52 12-53 U/L Current Medications Medications (Trade) Dose Ordered Sig/[place] Route Start Time Stop Time Status Last Admin Ondansetron HCl (Zofran) 4 mg ONCE ONCE IM 04/09/24 14:15 04/09/24 14:16 DC 04/09/24 14:46 Lorazepam (Ativan Inj) 1 mg ONCE ONCE IM 04/09/24 15:30 04/09/24 15:31 DC 04/09/24 15:24 Metoclopramide HCl (Reglan Injection) 5 mg ONCE ONCE IV 04/09/24 15:30 04/09/24 15:31 DC 04/09/24 15:30 Prochlorperazine Edisylate (Compazine Inj) 5 mg ONCE ONCE IV 04/09/24 16:15 04/09/24 16:16 DC 04/09/24 16:31 X-Ray, Labs, Meds, VS Comment Imaging: X-rays and CT scans were reviewed and interpreted by this provider, imaging shows no fractures and no pathological disease. Pending radiology herbie aguilera Laboratory: Labs reviewed and interpreted by this provider. No significant abnormalities noted. Patient has prior medical visits reviewed. Med reconciliation performed Vital signs reviewed Patient eloped, states does not want to stay any longer. Patient witnessed taken out IV and walking out of the emergency department Time of 1ST Reevaluation: 14:03 Reevaluation 1ST: Unchanged Patient Education/Counseling: Diagnosis, Treatment, Prognosis Family Education/Counseling: No Family Present Departure 1 Departure Time of Disposition: 17:59 Impression: Primary Impression: Nausea and vomiting Qualified Codes: R11.14 - Bilious vomiting Disposition: 07 LEFT AWOL/ELOPED Condition: Stable Discharged With: Self Critical Care Note Critical Care Time?: No Stability Stability form required: No I personally scribed for YE FALK ([facility]) on 04/09/24 at 14:06. Electronically submitted by Amber Mckenzie ([facility]). YE FALK Apr 09, 2024 14:06
[2024-04-09] MEDS: ONDANSETRON HCL 4 MG/2 ML VIAL IM ONE (14:46)
[2024-04-09 15:00] LABS: Basophils # (auto) 0.1 10 ^3/uL (0-0.2); Basophils % (auto) 0.6 % (0.0-2.0); Eosinophils # (auto) 0.2 10 ^3/uL (0-0.8); Eosinophils % (auto) 1.4 % (0.0-7.0); Hematocrit 46.8 % (36.0-46.0); Hemoglobin 14.5 g/dL (12.2-16.2); Lymphocytes # (auto) 3.1 10 ^3/uL (0.4-5.4); Lymphocytes % (auto) 17.6 % (10.0-50.0); Mean Corpuscular Hemoglobin 22.6 pg (28.0-32.0); Mean Corpuscular Hgb Conc. 31.1 g/dL (32.0-36.0); Mean Corpuscular Volume 72.7 fL (80.0-100.0); Monocytes # (auto) 0.9 10 ^3/uL (0-1.3); Monocytes % (auto) 5.3 % (0.0-12.0); Neutrophils # (auto) 13.3 10 ^3/uL (1.6-8.6); Neutrophils % (auto) 75.1 % (37.0-80.0); Nucleated Red Blood Cells % 0.1 %; Platelet Count (auto) 485 10^3/uL (140-450); Red Blood Cells 6.43 10^6/uL (4.0-5.20); Red Cell Distribution Width 18.8 % (11.8-14.3); White Blood Cell 17.7 10^3/uL (4.4-10.8)
[2024-04-09 15:20] VITALS: BP 103/73; PULSE 84; RESP 16; O2SAT 100
[2024-04-09] MEDS: LORazepam 2MG/ML-1ML VIAL IM ONE (15:24)
[2024-04-09 15:27] LABS: Alkaline Phosphatase 61 U/L (46-116); Anion Gap 13 (5-15); BUN/Creatinine Ratio 12.1 (10.0-20.0); Bilirubin, Total 1.1 mg/dL (0.2-1.0); Chloride 103 mmol/L (98-107); Lipase 52 U/L (12-53); Potassium 4.6 mmol/L (3.5-5.1)
[2024-04-09] MEDS: METOCLOPRAMIDE HCL 5MG/ml INJ 2ml VIAL IV ONE (15:30)
[2024-04-09 15:50] LABS: Alanine Aminotransferase 83 U/L (7-40); Albumin 5.3 g/dL (3.2-4.8); Aspartate Aminotransferase 64 U/L (13-40); Blood Urea Nitrogen 8 mg/dL (9-23); Calcium 11.2 mg/dL (8.7-10.4); Carbon Dioxide 18 mmol/L (20-31); Glucose 115 mg/dL (74-106); Sodium 134 mmol/L (136-145); Total Protein 8.6 g/dL (5.7-8.2)
[2024-04-09] MEDS: PROCHLORPERAZINE EDISYLATE 5 MG/ML 2ML VIAL IV ONE (16:31)
--- NOTE | 2024-04-09 17:02 | DVH ---
Exam: CT CT AB PEL WO CON-NO ORAL OR IV History: abd pain Comparison Study: CT CT AB PEL WO CON-NO ORAL OR IV on DOS: 01/02/24, CT CT AB PEL WO CON-NO ORAL OR IV on DOS: 03/28/23, CT ABD PELVIS WO CONTRAST on DOS: 09/06/21 Technique: Multidetector spiral CT of the abdomen and pelvis was performed from lung bases to pubic symphysis. Imaging was performed without IV contrast. Axial, coronal and sagittal multiplanar reform ats were obtained from the axial data set by the technologist. Radiation dose : Abdomen/Pelvis: CTDIvol 16 mGy, DLP 919.38 mGy*cm. Findings: Evaluation of solid organs is limited due to lack of intravenous contrast use. Lung Bases: No acute or significant lung base finding. Normal heart size. No pleural or pericardial effusion. Liver: The liver is normal in size. No focal lesions. Gallbladder and biliary Tree: Gallbladder is surgically absent. Spleen: Unremarkable Pancreas: The pancreas is grossly normal in appearance. Adrenal Glands: Atrophic. Kidneys: No hydronephrosis or nephrolithiasis. Right renal cysts. Bladder: Grossly unremarkable for degree of distention. Bowel: The stomach is grossly normal in appearance. Small bowel and colon are normal in caliber and d istribution. The appendix is not visualized; however, no secondary findings of acute appendicitis id entified. Ascites: Absent Lymphadenopathy: No mesenteric, retroperitoneal or periportal lymphadenopathy. Abdominal wall and Mesentery: Unremarkable. Vasculature: The visualized abdominal aorta is normal in size and caliber. Evaluation of abdominal a nd pelvic vessels is limited due to lack of intravenous contrast. Pelvic Organs: Unremarkable Musculoskeletal: No aggressive focal bony lesions, acute fractures or dislocation. IMPRESSION: 1. No acute abdominal or pelvic findings. Atrophic adrenal glands. Right renal cysts. No hydronephro sis or nephrolithiasis. Previously seen right adnexal cyst has largely resolved. Radiation optimization: All CT scans at this facility use at least one of these dose optimization selena hniques: Automated exposure control mA and/or kV adjustment per patient size (includes targeted exams where dose is matched to clinical indication) or iterative reconstruction. HS:Y
== END 2024-04-09 16:59 | disposition left against medical advice (07) ==
LOC: EDBD 13:40 → ER 13:40
DX: R11.2 Nausea with vomiting, unspecified (principal); E11.9 Type 2 diabetes mellitus without complications; I10 Essential (primary) hypertension; E03.9 Hypothyroidism, unspecified; F12.90 Cannabis use, unspecified, uncomplicated; Z90.49 Acquired absence of other specified parts of digestive tract; Z79.899 Other long term (current) drug therapy
CPT/HCPCS: 36415; 74176; 80053; 83690; 85025; 96372; 96374; 96375; 99285; J0780; J2060; J2405; J2765

== ENCOUNTER 2024-04-13 10:14 | Emergency (ER) | payer MEDICAID ==
[~2024-04-13] VITALS: Ht 160 cm; Wt 90.9 kg
[2024-04-13 10:32] VITALS: PULSE 63; RESP 20; O2SAT 96
--- NOTE | 2024-04-13 10:58 | ED.PDOC ---
HPI Comments 29Y F with PMHx [place]'s disease, DM, HTN, hypothyroidism, and cholecystectomy presents to ED via EMS for chief complaint nausea, vomiting, epigastric pain that started about 30 minutes prior to arrival today. Patient states that she smokes marijuana multiple times every single day and was told this is the cause of her symptoms previously. Patient does state that her chest hurts as well bone the when she is vomiting or retching. States ER is usually give her a shot of medicine that makes her feel better but she is not sure what it is. Patient denies any allergies. No other alcohol or drug use. No other complaints. Chief Complaint: Chest Pain Time Seen by MD: 10:17 Primary Care Provider: ISMAEL Momin Notes: Nurses Notes, Inspector And Tester Notes, Medications, Allergies Allergies: Coded Allergies: NO KNOWN ALLERGIES (Unverified , 04/28/19) Home Meds Active Scripts Ciprofloxacin Hcl (Cipro) 500 Mg Tab, 1 TAB PO BID, #14 TAB Prov:JIM BOSTON MD 01/04/24 Ondansetron Odt 4MG Tab (ZOFRAN PO) 4 Mg Tb, 4 MG PO Q8HP PRN for 5 Days, #15 TAB ODT TAB-DISSOLVE IN MOUTH, THEN SWALLOW Prov:JIM BOSTON MD 01/04/24 Pantoprazole Sodium Sesquihydr (Protonix) 40 Mg Tab, 40 MG PO DAILY, #30 TAB Prov:JIM BOSTON MD 01/04/24 Hydrocodone-Acetaminophen (Hydrocodone Bitartrate/AC 5-325 mg) 1 Tab Tab, 1 TAB PO Q6HP PRN, #20 TAB Prov:ENRRIQUE VIRK DO 03/30/23 Cephalexin (KEFLEX CAPSULE) 250 Mg Cp, 1 CAP PO TIDWM, #15 CAP Prov:LUIS GUZMAN MD 01/14/23 Promethazine Hcl (Promethazine Hcl) 25 Mg Tab, 1 TAB PO Q6HPRN PRN, #14 TAB Prov:LUIS GUZMAN MD 01/14/23 Ibuprofen (Ibuprofen) 600 Mg Tab, 1 TAB PO TID PRN, #20 TAB Prov:LUIS GUZMAN MD 01/14/23 Fludrocortisone Acetate (Fludrocortisone Acetate) 0.1 Mg Tab, 0.1 MG PO DAILY, #30 TAB Prov:CHUY HERZOG MD 06/16/19 Hydrocortisone Base (Hydrocortisone) 20 Mg Tab, 50 MG PO TID, #90 TAB Prov:CHUY HERZOG MD 06/16/19 Reported Medications Sertraline Hcl (Sertraline Hcl) 50 Mg Tab, 100 MG PO DAILY for 30 Days, MG 03/29/23 Metformin Hydrochloride (Metformin Hcl) 500 Mg Tab, 500 MG PO IBID for 30 Days, MG 01/11/23 Information Source: Patient, Emergency Med Personnel Mode of Arrival: EMS Brought in by: EMS Severity: Mild Timing: Minutes Duration: Since onset Prehospital treatment: None Location: Substernal Radiation: No Radiation Quality: Other Onset: At Rest Cardiac Risk Factors: Smoker, HTN, Diabetes PE Risk Factors: None History of: Similar pain in past Modifying Factors: Nothing Associated Signs and Symptoms: N/V, Other Past Medical History PAST MEDICAL HISTORY: Anxiety, DM, HTN, Thyroid Surgical History: Cholecystectomy INSURANCE ACCOUNT SPECIALIST History: No Pertinent INSURANCE ACCOUNT SPECIALIST History Family History Family History: Reviewed,noncontributory to illness Social History Smoker: Non-Smoker Alcohol: Occasionally Drugs: Marijuana Lives In: Home Constitutional: denies: chills, diaphoresis, fatigue, fever, malaise, sweats, weakness, others EENTM: denies: blurred vision, double vision, ear bleeding, ear discharge, ear drainage, ear pain, ear ringing, eye pain, eye redness, hearing loss, mouth pain, mouth swelling, nasal discharge, nose bleeding, nose congestion, nose pain, photophobia, tearing, throat pain, throat swelling, voice changes, others Respiratory: reports: cough, shortness of breath; denies: hemoptysis, orthopnea, SOB at rest, SOB with excertion, stridor, wheezing, others Cardiovascular: reports: chest pain; denies: dizzy spells, diaphoresis, Dyspnea on exertion, edema, irregular heart beat, left arm pain, lightheadedness, palpitations, PND, syncope, others Gastrointestinal: reports: nausea, vomiting; denies: abdomen distended, abdominal pain, blood streaked bowels, constipated, diarrhea, dysphagia, d ifficulty swallowing, hematemesis, melena, poor appetite, poor fluid intake, rectal bleeding, rectal pain, others Genitourinary: denies: abnormal vagina bleeding, burning, dyspareunia, dysuria, flank pain, frequency, hematuria, incontinence, pain, , vagina discharge, urgency, others Neurological: denies: dizziness, fainting, headache, left sided numbness, left sided weakness, numbness, paresthesia, pre-existing deficit, right sided numbness, right sided weakness, seizure, speech problems, tingling, tremors, weakness, others Musculoskeletal: denies: back pain, gout, joint pain, joint swelling, muscle pain, muscle stiffness, neck pain, others Integumetry: denies: bruises, change in color, change in hair/nails, dryness, laceration, lesions, lumps, rash, wounds, others Allergic/Immunocompromised: denies: Difficulty Healing, Frequent Infections, Hives, Itching, others Hematologic/Lymphatic: denies: anemia, blood clots, easy bleeding, easy bruising, swollen glands, others Endocrine: denies: excessive hunger, excessive sweating, excessive thirst, excessive urination, flushing, intolerance to cold, intolerance to heat, unexplained weight gain, unexplained weight loss, others Psychiatric: denies: anxiety, bipolar disorder, depression, hopeless, panic disorder, schizophrenia, sleepless, suicidal, others All Other Systems: Reviewed and Negative Physical Exam General Appearance: Mild Distress HEENT: Normal ENT Inspection, Pharynx Normal, TMs Normal Neck: Full Range of Motion, Non-Tender, Normal, Normal Inspection Respiratory: Chest Non-Tender, Lungs Clear, No Accessory Muscle Use, No Respiratory Distress, Normal Breath Sounds Cardiovascular: No Edema, No JVD, No Murmur, No Gallop, Normal Peripheral Puls es, Regular Rate/Rhythm Breast Exam: Deferred Gastrointestinal: No Organomegaly, Non Tender, No Pulsatile Mass, Normal Bowel Sounds, Soft Genitalia: Deferred Pelvic: Deferred Rectal: Deferred Extremities: No calf tenderness, Normal capillary refill, Normal inspection, Normal range of motion, Non-tender, No pedal edema Musculoskeletal : Apperance: Normal Neurologic: Alert, apartment hotel manager II-XII nml as Tested, No Motor Deficits, Normal Affect, Normal Mood, No Sensory Deficits Cerebellar Function: NOT DONE Reflexes: NOT DONE Skin: Dry, Normal Color, Warm Lymphatic: No Adenopathy Was a procedure done? Was a procedure done?: No CP Differential Dx Differential Diagnosis: Anxiety / Panic Attack, Other (GERD, gastritis, cannabinoid hyperemesis syndrome, cholecystitis, appendicitis, ectopic , ovarian torsion, viral illness, gastroenteritis) X-Ray, Labs, Meds, VS Vital Signs Date Time Temp Pulse Resp B/P (MAP) Pulse Ox O2 Delivery O2 Flow Rate FiO2 04/13/24 10:34 96.7 86 20 131/92 (105) 99 96.7 04/13/24 10:34 86 04/13/24 10:32 63 20 96 Room Air* 0 21 04/13/24 10:30 98.1 68 24 148/80 (102) 99 04/13/24 10:30 68 04/13/24 10:19 70 Lab Test 04/13/24 13:54 04/13/24 11:30 04/13/24 11:12 Range/Units Troponin I High Sensitivity Pending 3 L </=34 ng/L Urine Test Negative Negative White Blood Count 16.1 H 4.4-10.8 10^3/uL Red Blood Count 6.14 H 4.0-5.20 10^6/uL Hemoglobin 13.9 12.2-16.2 g/dL Hematocrit 44.1 36.0-46.0 % Mean Corpuscular Volume 71.9 L 80.0-100.0 fL Mean Corpuscular Hemoglobin 22.6 L 28.0-32.0 pg Mean Corpuscular Hemoglobin Concent 31.4 L 32.0-36.0 g/dL Red Cell Distribution Width 18.9 H 11.8-14.3 % Platelet Count 447 140-450 10^3/uL Mean Platelet Volume 7.7 6.9-10.8 fL Neutrophils (%) (Auto) 80.3 H 37.0-80.0 % Lymphocytes (%) (Auto) 12.9 10.0-50.0 % Monocytes (%) (Auto) 5.4 0.0-12.0 % Eosinophils (%) (Auto) 1.0 0.0-7.0 % Basophils (%) (Auto) 0.4 0.0-2.0 % Neutrophils # (Auto) 12.9 H 1.6-8.6 10 ^3/uL Lymphocytes # (Auto) 2.1 0.4-5.4 10 ^3/uL Monocytes # (Auto) 0.9 0-1.3 10 ^3/uL Eosinophils # (Auto) 0.2 0-0.8 10 ^3/uL Basophils # (Auto) 0.1 0-0.2 10 ^3/uL Nucleated Red Blood Cells 0.0 % Sodium Level 129 #L 136-145 mmol/L Potassium Level 5.1 3.5-5.1 mmol/L Chloride Level 101 98-107 mmol/L Carbon Dioxide Level 17 L 20-31 mmol/L Anion Gap 11 5-15 Blood Urea Nitrogen 9 9-23 mg/dL Creatinine 1.00 # 0.550-1.02 mg/dL Glomerular Filtration Rate Calc 78 >90 mL/min BUN/Creatinine Ratio 9.0 L 10.0-20.0 Serum Glucose 105 74-106 mg/dL Calcium Level 11.0 H 8.7-10.4 mg/dL Current Medications Medications (Trade) Dose Ordered Sig/[place] Route Start Time Stop Time Status Last Admin Haloperidol Lactate (Haldol) 5 mg ONCE ONCE IM 04/13/24 11:30 04/13/24 11:31 DC 04/13/24 11:39 [place] [id number] Ph: [phone] DIAGNOSTIC IMAGING Diagnostic Imaging Report : [id number] Signed PATIENT: THOMAS WORRELL SACCT: [id number] UNIT: [id number] : 1995 LOC: ER ROOM / BED: / AGE / SEX: 29 / F ADM STATUS: REG ER SERVICE 1024 ORDERING PHYSICIAN: FABI ROMO MD PROCEDURE(s): CXRP - CHEST PORTABLE REASON: chest pain ORDER NUMBER(s): [id number], ACCESSION NUMBER(s): [id number] CLINICAL INFORMATION: 29 years old, Female; chest pain. TECHNIQUE: Single AP portable chest radiograph was obtained. COMPARISON: XY CHEST PORTABLE on DOS: 01/05/24 FINDINGS: Lungs: Clear. Cardiac: Heart size is within normal limits. Pulmonary vasculature: Unremarkable. Mediastinum/gogo: Unremarkable. Bones: No acute osseous abnormality identified. Other: No other significant findings. IMPRESSION: No evidence of acute disease in the chest. ATED BY: KAM RODRÍGUEZ DO DICTATED DATE/TIME: 04/13/248 SIGNED BY: KAM RODRÍGUEZ DO SIGNED DATE/TIME: 04/13/248 CC: X-Ray, Labs, Meds, VS Comment Patient presents with epigastric pain with etiology most likely secondary to cannabinoid hyperemesis syndrome. Discussed management as outpatient with lifestyle changes such as quitting marijuana. I also instructed the patient for other device for GERD such as sleeping at an angle, reduction in trigger (acidic/caffeinated/spicy/alcohol) foods, spreading out meals to 5-6 small meals per day, and minimizing PO intake 2 hours prior to sleep. Reviewed return precautions including, but not limited to fever > 100.4, worsening of symptoms, and PO intolerance. Patient is in agreement with the plan and all questions answered. Considered acute biliary process (choledocholithiasis, cholecystitis, cholangitis), pancreatitis, UGIB, PUD, gastric perforation, lower lobe pneumonia, atypical ACS/NJ, or vascular catastrophe, but based on above history/physical/evaluation as above consider these to be less likely. Time of 1ST Reevaluation: 10:47 Reevaluation 1ST: Unchanged Time of 2ND Reevaluation: 12:31 Reevaluation 2ND: Resolved Patient Education/Counseling: Diagnosis, Treatment, Prognosis, Need For Follow Up Family Education/Counseling: No Family Present Departure 1 Departure Time of Disposition: 14:58 Impression: Primary Impression: Cannabinoid hyperemesis syndrome Disposition: 01 HOME / SELF CARE / HOMELESS Condition: Stable Discharged With: Self Critical Care Note Critical Care Time?: No Stability Stability form required: No Heart Score Heart Score: Heart Score Response (Comments) Value History N/A 0 EKG N/A 0 Age N/A 0 Risk Factors N/A 0 Troponin N/A 0 Total 0 I personally scribed for FABI ROMO MD ([email or web address]) on 04/13/24 at 11:26. Electronically submitted by Obdulia Villatoro ([employer]). I personally scribed for FABI ROMO MD ([email or web address]) on 04/13/24 at 12:48. Electronically submitted by Obdulia Villatoro ([employer]). FABI ROMO MD Apr 13, 2024 10:58
[2024-04-13 11:22] LABS: Basophils # (auto) 0.1 10 ^3/uL (0-0.2); Hemoglobin 13.9 g/dL (12.2-16.2); Neutrophils # (auto) 12.9 10 ^3/uL (1.6-8.6)
[2024-04-13 11:24] LABS: Basophils % (auto) 0.4 % (0.0-2.0); Eosinophils # (auto) 0.2 10 ^3/uL (0-0.8); Hematocrit 44.1 % (36.0-46.0); Lymphocytes # (auto) 2.1 10 ^3/uL (0.4-5.4); Lymphocytes % (auto) 12.9 % (10.0-50.0); Mean Corpuscular Hemoglobin 22.6 pg (28.0-32.0); Mean Corpuscular Hgb Conc. 31.4 g/dL (32.0-36.0); Mean Corpuscular Volume 71.9 fL (80.0-100.0); Monocytes # (auto) 0.9 10 ^3/uL (0-1.3); Monocytes % (auto) 5.4 % (0.0-12.0); Neutrophils % (auto) 80.3 % (37.0-80.0); Platelet Count (auto) 447 10^3/uL (140-450); Red Blood Cells 6.14 10^6/uL (4.0-5.20); Red Cell Distribution Width 18.9 % (11.8-14.3); White Blood Cell 16.1 10^3/uL (4.4-10.8)
[2024-04-13 11:34] LABS: Chloride 101 mmol/L (98-107)
[2024-04-13 11:36] LABS: Anion Gap 11 (5-15); Carbon Dioxide 17 mmol/L (20-31); Potassium 5.1 mmol/L (3.5-5.1); Sodium 129 mmol/L (136-145)
[2024-04-13 11:38] LABS: Glucose 105 mg/dL (74-106)
[2024-04-13] MEDS: HALOPERIDOL LACTATE 5 MG/ML INJ VIAL IM ONE (11:39)
[2024-04-13 11:46] LABS: Blood Urea Nitrogen 9 mg/dL (9-23)
--- NOTE | 2024-04-13 12:21 | DVH ---
CLINICAL INFORMATION: 29 years old, Female; chest pain. TECHNIQUE: Single AP portable chest radiograph was obtained. COMPARISON: XY CHEST PORTABLE on DOS: 01/05/24 FINDINGS: Lungs: Clear. Cardiac: Heart size is within normal limits. Pulmonary vasculature: Unremarkable. Mediastinum/gogo: Unremarkable. Bones: No acute osseous abnormality identified. Other: No other significant findings. IMPRESSION: No evidence of acute disease in the chest.
[2024-04-13 14:05] VITALS: BP 136/88; PULSE 86; RESP 17; TEMP 97.9; O2SAT 97
--- NOTE | 2024-04-16 07:25 | ECG ---
[facility] Test Date: 2024-04-13 Test Time: 10:19:50 Pat Name: THOMAS WORRELL Department: ER Room: Gender: F Leather Currier: MADYSON : 1995 Requested By: FABI ROMO Order Number: [id number] Reading MD: Ney Olguin Measurements Intervals [place] Rate: 70 P: 7 WA: 114 QRS: 24 QRSD: 83 T: 25 QT: 421 QTc: 455 Interpretive Statements Sinus rhythm Borderline short [place] interval Electronically Signed On 04-19-2024 9:50:29 PST by Ney Olguin Please click the below link to view image of tracing.
== END 2024-04-13 14:11 | disposition home or self-care (01) ==
LOC: EDBD 10:14 → ER 10:14
DX: F12.90 Cannabis use, unspecified, uncomplicated (principal); E11.9 Type 2 diabetes mellitus without complications; I10 Essential (primary) hypertension; E03.9 Hypothyroidism, unspecified; Z79.899 Other long term (current) drug therapy; Z90.49 Acquired absence of other specified parts of digestive tract
CPT/HCPCS: 36415; 71045; 80048; 81025; 84484; 85025; 93005; 96372; 99285; J1630

== ENCOUNTER 2024-04-18 02:57 | Emergency (ER) | payer MEDICAID ==
[~2024-04-18] VITALS: Ht 160 cm; Wt 84.7 kg
--- NOTE | 2024-04-18 03:23 | ECG ---
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
--- NOTE | 2024-04-18 03:26 | ED.PDOC ---
History of Present Illness HPI Comments 29 y/o F, with a Hx of [place]'s disease, anxiety, DMII, HTN, hypothyroidism, obesity, cholecystectomy, and marijuana use, presents with c/o non-radiating, sternal chest pain, nausea, and poor appetite, today. Patient endorses on unprovoked onset of intermittent symptoms, yesterday, with no modifying or reli eving factors. She also informs on 2x isolated episodes of diarrhea, yesterday, that has since resolved on its own. Patient comments on recent sick contact at home, with family members, who are, recently, recovering from similar GI symptoms. She reports no recent injuries, stressors, strenuous activities, or further relevant information. Patient denies having any shortness of breath, palpitations, vomiting, fever, chills, or other associated symptoms at this time. Chief Complaint: Chest Pain Time Seen by MD: 03:10 Primary Care Provider: ISMAEL Reviewed Notes: Nurses Notes, Medications, Allergies Allergies: Coded Allergies: NO KNOWN ALLERGIES (Unverified , 04/28/19) Home Meds Active Scripts Ciprofloxacin Hcl (Cipro) 500 Mg Tab, 1 TAB PO BID, #14 TAB Prov:JIM BOSTON MD 01/04/24 Ondansetron Odt 4MG Tab (ZOFRAN PO) 4 Mg Tb, 4 MG PO Q8HP PRN for 5 Days, #15 TAB ODT TAB-DISSOLVE IN MOUTH, THEN SWALLOW Prov:JIM BOSTON MD 01/04/24 Pantoprazole Sodium Sesquihydr (Protonix) 40 Mg Tab, 40 MG PO DAILY, #30 TAB Prov:JIM BOSTON MD 01/04/24 Hydrocodone-Acetaminophen (Hydrocodone Bitartrate/AC 5-325 mg) 1 Tab Tab, 1 TAB PO Q6HP PRN, #20 TAB Prov:ENRRIQUE VIRK DO 03/30/23 Cephalexin (KEFLEX CAPSULE) 250 Mg Cp, 1 CAP PO TIDWM, #15 CAP Prov:LUIS GUZMAN MD 01/14/23 Promethazine Hcl (Promethazine Hcl) 25 Mg Tab, 1 TAB PO Q6HPRN PRN, #14 TAB Prov:LUIS GUMZAN MD 01/14/23 Ibuprofen (Ibuprofen) 600 Mg Tab, 1 TAB PO TID PRN, #20 TAB Prov:LUIS GUZMAN MD 01/14/23 Fludrocortisone Acetate (Fludrocortisone Acetate) 0.1 Mg Tab, 0.1 MG PO DAILY, #30 TAB Prov:CHUY HERZOG MD 06/16/19 Hydrocortisone Base (Hydrocortisone) 20 Mg Tab, 50 MG PO TID, #90 TAB Prov:CHUY HERZOG MD 06/16/19 Reported Medications Sertraline Hcl (Sertraline Hcl) 50 Mg Tab, 100 MG PO DAILY for 30 Days, MG 03/29/23 Metformin Hydrochloride (Metformin Hcl) 500 Mg Tab, 500 MG PO IBID for 30 Days, MG 01/11/23 Information Source: Patient Mode of Arrival: Ambulatory Severity: Moderate Timing: Days Duration: Intermittent Prehospital treatment: None Past Medical History PAST MEDICAL HISTORY: Anxiety, DM, HTN, Thyroid Past Medical History (Other): [place] disease, obesity Surgical History: Cholecystectomy ADMINISTRATIVE MEDICAL DIRECTOR History: No Pertinent ADMINISTRATIVE MEDICAL DIRECTOR History Family History Family History: Reviewed,noncontributory to illness Social History Smoker: Non-Smoker Alcohol: Occasionally Drugs: Marijuana Lives In: Home Cardiovascular: reports: chest pain Gastrointestinal: reports: nausea, poor appetite All Other Systems: Reviewed and Negative (negative unless otherwise stated above or in HPI) Physical Exam General Appearance: No Apparent Distress, Obese, Other (Anxious appearing ) HEENT: Normal ENT Inspection, Pharynx Normal, TMs Normal Neck: Full Range of Motion, Non-Tender, Normal, Normal Inspection Respiratory: Chest Non-Tender, Lungs Clear, No Accessory Muscle Use, No Respiratory Distress, Normal Breath Sounds Cardiovascular: No Edema, No JVD, No Murmur, No Gallop, Normal Peripheral Pulses, Regular Rate/Rhythm Breast Exam: Deferred Gastrointestinal: No Organomegaly, Non Tender, No Pulsatile Mass, Normal Bowel Sounds, Soft Genitalia: Deferred Pelvic: Deferred Rectal: Deferred Extremities: No calf tenderness, Normal capillary refill, Normal inspection, No rmal range of motion, Non-tender, No pedal edema Musculoskeletal : Apperance: Normal Neurologic: Alert, white sugar boiler II-XII nml as Tested, No Motor Deficits, Normal Affect, Normal Mood, No Sensory Deficits Cerebellar Function: Normal Reflexes: Normal Skin: Dry, Normal Color, Warm Lymphatic: No Adenopathy Was a procedure done? Was a procedure done?: No Differential Dx Considerations may include: viral syndrome, musculoskeletal pain, anxiety, panic attack, costochondritis, pericarditis, gastritis, gastroenteritis, angina X-Ray, Labs, Meds, VS Vital Signs Date Time Temp Pulse Resp B/P (MAP) Pulse Ox O2 Delivery O2 Flow Rate FiO2 04/18/24 03:54 87 04/18/24 03:04 103 04/18/24 03:00 97.5 106 22 105/64 (78) 99 Lab Test 04/18/24 04:10 04/18/24 03:20 04/18/24 03:13 Range/Units Troponin I High Sensitivity 3 L 3 L </=34 ng/L White Blood Count 12.6 H 4.4-10.8 10^3/uL Red Blood Count 6.32 H 4.0-5.20 10^6/uL Hemoglobin 14.7 12.2-16.2 g/dL Hematocrit 45.5 36.0-46.0 % Mean Corpuscular Volume 71.9 L 80.0-100.0 fL Mean Corpuscular Hemoglobin 23.2 L 28.0-32.0 pg Mean Corpuscular Hemoglobin Concent 32.2 32.0-36.0 g/dL Red Cell Distribution Width 18.7 H 11.8-14.3 % Platelet Count 423 140-450 10^3/uL Mean Platelet Volume 8.3 6.9-10.8 fL Neutrophils (%) (Auto) 70.6 37.0-80.0 % Lymphocytes (%) (Auto) 19.3 10.0-50.0 % Monocytes (%) (Auto) 5.6 0.0-12.0 % Eosinophils (%) (Auto) 3.5 0.0-7.0 % Basophils (%) (Auto) 1.0 0.0-2.0 % Neutrophils # (Auto) 8.9 H 1.6-8.6 10 ^3/uL Lymphocytes # (Auto) 2.4 0.4-5.4 10 ^3/uL Monocytes # (Auto) 0.7 0-1.3 10 ^3/uL Eosinophils # (Auto) 0.4 0-0.8 10 ^3/uL Basophils # (Auto) 0.1 0-0.2 10 ^3/uL Nucleated Red Blood Cells 0.1 % Sodium Level 128 L 136-145 mmol/L Potassium Level 4.7 3.5-5.1 mmol/L Chloride Level 98 98-107 mmol/L Carbon Dioxide Level 18 L 20-31 mmol/L Anion Gap 12 5-15 Blood Urea Nitrogen 7 L 9-23 mg/dL Creatinine 0.77 0.550-1.02 mg/dL Glomerular Filtration Rate Calc 107 >90 mL/min BUN/Creatinine Ratio 9.1 L 10.0-20.0 Serum Glucose 106 74-106 mg/dL Calcium Level 11.2 H 8.7-10.4 mg/dL Urine Color Light-orange Yellow Urine Clarity Ex.turbid Clear Urine pH 6.0 5.0-9.0 Urine Specific [place] 1.021 1.001-1.035 Urine Protein 1+ H Negative Urine Ketones 3+ H Negative Urine Blood 1+ H Negative /uL Urine Nitrite 1+ H Negative Urine Bilirubin Negative Negative Urine Urobilinogen 4 H Negative mg/dL Urine Leukocyte Esterase 3+ Negative /uL Urine RBC 26 0 - 4 /hpf Urine WBC Clumps Present None Seen /hpf Urine Microscopic WBC 1506 H 0-5 /HPF Urine Squamous Epithelial Cells Mod <5 /hpf Urine Bacteria None seen None Seen /hpf Urine Mucus Few None Seen Urine Glucose Normal Normal mg/dL Current Medications Medications (Trade) Dose Ordered Sig/[place] Route Start Time Stop Time Status Last Admin Lorazepam (Ativan Tablet) 1 mg ONCE ONCE PO 04/18/24 03:15 04/18/24 03:16 DC 04/18/24 03:29 Acetaminophen (Tylenol Tablet) 650 mg ONCE ONCE PO 04/18/24 03:15 04/18/24 03:16 DC 04/18/24 03:30 Ondansetron HCl (Zofran Po) 4 mg ONCE ONCE PO 04/18/24 03:15 04/18/24 03:16 DC 04/18/24 03:30 Famotidine (Pepcid Tablet) 20 mg ONCE ONCE PO 04/18/24 03:15 04/18/24 03:16 DC 04/18/24 03:30 Time of 1ST Reevaluation: 03:40 Reevaluation 1ST: Unchanged Patient Education/Counseling: Diagnosis, Treatment Family Education/Counseling: No Family Present Additional Information I reviewed the following notes from patient's past medical encounters: 04/09/24 and 04/13/24 ED physician note The following tests were ordered, and results were reviewed by me: EKG, CXR, CBC, BMP, Troponin I reviewed and agreed with the following test results read by other providers: CXR I discussed treatment and results with medical personnel Departure 1 Departure Time of Disposition: 05:38 (Patient presented with chest pain that was concerning for possible STEMI, ACS, PE, Pneumonia, Muscle Strain, COPD, Dissection. Data: 1. I ordered and reviewed the result of at least 3 labs including a CBC, BMP, and Troponin. 2. I independently interpreted the following tests: EKG which shows normal sinus rhythm and Chest X-ray which shows a benign chest.Risk:This patient presented with a high risk of morbidity due to further diagnostic testing or treatment and may suffer from an acute cardiac or respiratory disorder. After review of all the data patient is unlikely to have a pe , dissection, and is low risk for acs. Patient is stable at this time.Workup so far is benign and patient will be discharged with outpatient followup. Patient does have a urinary tract infection.) Impression: Primary Impression: UTI (urinary tract infection) Qualified Codes: N30.00 - Acute cystitis without hematuria Additional Impression: Acute chest pain Disposition: HOME / SELF CARE / HOMELESS Condition: Stable Additional Instructions: You presented today with chest pain. Your workup today was benign including labs, troponin, EKG, chest x-ray. Your pain may be from musculoskeletal strain, acid reflux, anxiety, or many other factors. You do have a urinary tract infection. You were prescribed antibiotics. Please take as directed It is important to follow up with your regular doctor within 1 week. If your symptoms worsen or you have any other concerns please return to the emergency room. e-Prescriptions Cefdinir (Cefdinir) 300 Mg Cap 1 CAP PO BID for 5 Days, #14 CAP Prov: CLAIRE DIGGS MD 04/18/24 Discharged With: Self Critical Care Note Critical Care Time?: No Stability Stability form required: No Heart Score Heart Score: Heart Score Response (Comments) Value History N/A 0 EKG N/A 0 Age N/A 0 Risk Factors N/A 0 Troponin N/A 0 Total 0 I personally scribed for CLAIRE DIGGS MD ([email or web address]) on 04/18/24 at 03:26. Electronically submitted by Constantin Hyman [email or web address]). CLAIRE DIGGS MD Apr 18, 2024 03:26
[2024-04-18] MEDS: LORazepam 0.5 MG TAB PO ONE (03:29)
[2024-04-18] MEDS: FAMOTIDINE 20 MG TAB PO ONE (03:30)
[2024-04-18] MEDS: ACETAMINOPHEN 325 MG TAB PO ONE (03:30)
[2024-04-18] MEDS: ONDANSETRON ODT 4 MG TAB PO ONE (03:30)
[2024-04-18 03:59] LABS: Basophils # (auto) 0.1 10 ^3/uL (0-0.2); Mean Corpuscular Volume 71.9 fL (80.0-100.0); Monocytes # (auto) 0.7 10 ^3/uL (0-1.3); Nucleated Red Blood Cells % 0.1 %; White Blood Cell 12.6 10^3/uL (4.4-10.8)
[2024-04-18 04:01] LABS: Eosinophils # (auto) 0.4 10 ^3/uL (0-0.8); Eosinophils % (auto) 3.5 % (0.0-7.0); Hematocrit 45.5 % (36.0-46.0); Hemoglobin 14.7 g/dL (12.2-16.2); Lymphocytes # (auto) 2.4 10 ^3/uL (0.4-5.4); Lymphocytes % (auto) 19.3 % (10.0-50.0); Mean Corpuscular Hemoglobin 23.2 pg (28.0-32.0); Mean Corpuscular Hgb Conc. 32.2 g/dL (32.0-36.0); Monocytes % (auto) 5.6 % (0.0-12.0); Neutrophils # (auto) 8.9 10 ^3/uL (1.6-8.6); Neutrophils % (auto) 70.6 % (37.0-80.0); Platelet Count (auto) 423 10^3/uL (140-450); Red Blood Cells 6.32 10^6/uL (4.0-5.20); Red Cell Distribution Width 18.7 % (11.8-14.3)
[2024-04-18 04:03] LABS: Potassium 4.7 mmol/L (3.5-5.1)
[2024-04-18 04:04] LABS: Anion Gap 12 (5-15)
[2024-04-18 04:09] LABS: BUN/Creatinine Ratio 9.1 (10.0-20.0)
[2024-04-18 04:14] LABS: Urine Bacteria None Seen /hpf (None Seen)
[2024-04-18 04:14] LABS: Blood Urea Nitrogen 7 mg/dL (9-23); Calcium 11.2 mg/dL (8.7-10.4); Carbon Dioxide 18 mmol/L (20-31); Chloride 98 mmol/L (98-107); Glucose 106 mg/dL (74-106); Sodium 128 mmol/L (136-145)
[2024-04-18 04:29] LABS: Urine Blood 1+ /uL (Negative); Urine Clarity Ex.Turbid (Clear); Urine Color Light-Orange (Yellow); Urine Mucus FEW (None Seen); Urine Protein, UAD 1+ (Negative); Urine Specific Gravity 1.021 (1.001-1.035); Urine Squamous Epithelial Cell MOD /hpf (<5); Urine Urobilinogen 4 mg/dL (Negative); Urine WBC 1506 /HPF (0-5); Urine WBC Clumps PRESENT /hpf (None Seen)
--- NOTE | 2024-04-18 05:31 | DVH ---
CHEST RADIOGRAPH Indication: chest pain Technique: Frontal and lateral view of the chest was obtained Comparison: CHEST TWO VIEWS ROUTINE on DOS: 05/02/21 FINDINGS: Lines and Tubes: None Lungs: Clear Pleura: No effusion. No pneumothorax. Cardiomediastinal contours: Unremarkable Bones: Unremarkable IMPRESSION: No evidence of acute disease.
[2024-04-18] MEDS ORDERED: CEFD300C2 PO (05:39)
[2024-04-18 06:07] VITALS: BP 103/71; TEMP 98.3
[2024-04-18] MEDS: cefTRIAXone 1GM/50ML D5W 50 ML IV ONE (06:09)
[2024-04-18 06:20] VITALS: PULSE 103; RESP 18; O2SAT 98
--- NOTE | 2024-04-18 06:22 | ECG ---
[facility] Test Date: 2024-04-18 Test Time: 03:54:33 Pat Name: THOMAS WORRELL Department: ER Room: Gender: F Imaging Assistant: ER : 1995 Requested By: CLAIRE DIGGS Order Number: [id number] Reading MD: Ney Olguin Measurements Intervals [place] Rate: 87 P: 22 VA: 55 QRS: -1 QRSD: 81 T: 232 QT: 369 QTc: 444 Interpretive Statements Sinus rhythm Short [place] interval Nonspecific T abnormalities, diffuse leads Baseline wander in lead(s) I,II,aVR Electronically Signed On 04-20-2024 17:04:51 PST by Ney Olguin Please click the below link to view image of tracing.
== END 2024-04-18 06:32 | disposition home or self-care (01) ==
LOC: ER 02:57
DX: R07.89 Other chest pain (principal); N39.0 Urinary tract infection, site not specified; I10 Essential (primary) hypertension; E11.9 Type 2 diabetes mellitus without complications; E03.9 Hypothyroidism, unspecified; Z79.899 Other long term (current) drug therapy; Z90.49 Acquired absence of other specified parts of digestive tract
CPT/HCPCS: 36415; 71046; 80048; 81001; 84484; 85025; 93005; 96365; 99285; J0696; Q0162

== ENCOUNTER 2024-04-19 03:09 | Emergency (ER) | payer MEDICAID ==
[~2024-04-19] VITALS: Ht 160 cm; Wt 86.0 kg
[~2024-04-19 03:09] MED LIST changes: +CEFD300C2 PO
[2024-04-19 04:33] VITALS: BP 111/70; PULSE 111; RESP 18; TEMP 98; O2SAT 98
[2024-04-19] MEDS: LORazepam 2MG/ML-1ML VIAL IM ONE (04:44)
--- NOTE | 2024-04-19 05:16 | ED.PDOC ---
Psychiatric HPI Comments 29-YEAR-OLD FEMALE PRESENTS TO ER WITH COMPLAINTS OF PANIC ATTACK X2 HOURS. PATIENT WITH PMH OF PANIC ATTACKS/ANXIETY REPORTS THAT SHE WOKE UP WITH A PANIC ATTACK AND ASSOCIATED 7/10 CHEST WALL "TIGHTNESS" 2 HOURS PRIOR TO ARRIVAL TO ER. PATIENT PRESENTS TO ER ANXIOUS ON ARRIVAL, ALERT AND ORIENTED X4, WITH S TEADY GAIT AND NOTES SHE HAS HAD SIMILAR SYMPTOMS IN THE PAST RELATED TO PANIC ATTACKS.. 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 History Family History Family History: Unknown Social History Smoker: Non-Smoker Alcohol: Occasionally Drugs: Marijuana Lives In: Home Constitutional: denies: chills, diaphoresis, fatigue, fever, malaise, sweats, weakness, others EENTM: denies: blurred vision, double vision, ear bleeding, ear discharge, ear drainage, ear pain, ear ringing, eye pain, eye redness, hearing loss, mouth pain, mouth swelling, nasal discharge, nose bleeding, nose congestion, nose pain, photophobia, tearing, throat pain, throat swelling, voice changes, others Respiratory: denies: cough, hemoptysis, orthopnea, SOB at rest, shortness of breath, SOB with excertion, stridor, wheezing, others Cardiovascular: reports: others ( STATED IN HPI) Gastrointestinal: denies: abdomen distended, abdominal pain, blood streaked bowels, constipated, diarrhea, dysphagia, difficulty swallowing, hematemesis, melena, nausea, poor appetite, poor fluid intake, rectal bleeding, rectal pain, vomiting, others Genitourinary: denies: abnormal vagina bleeding, burning, dyspareunia, dysuria, flank pain, frequency, hematuria, incontinence, pain, , vagina discharge, urgency, others Neurological: denies: dizziness, fainting, headache, left sided numbness, left sided weakness, numbness, paresthesia, pre-existing deficit, right sided numbness, right sided weakness, seizure, speech problems, tingling, tremors, weakness, others Musculoskeletal: denies: back pain, gout, joint pain, joint swelling, muscle pain, muscle stiffness, neck pain, others Integumetry: denies: bruises, change in color, change in hair/nails, dryness, laceration, lesions, lumps, rash, wounds, others Allergic/Immunocompromised: denies: Difficulty Healing, Frequent Infections, Hives, Itching, others Hematologic/Lymphatic: denies: anemia, blood clots, easy bleeding, easy bruising, swollen glands, others Endocrine: denies: excessive hunger, excessive sweating, excessive thirst, excessive urination, flushing, intolerance to cold, intolerance to heat, unexplained weight gain, unexplained weight loss, others Psychiatric: reports: others ( STATED IN HPI) Physical Exam General Appearance: Mild Distress (PATIENT ANXIOUS) HEENT: PERRL/EOMI Neck: Full Range of Motion, Non-Tender, Normal Respiratory: Chest Non-Tender, Lungs Clear, No Accessory Muscle Use, No Respiratory Distress, Normal Breath Sounds Cardiovascular: No Murmur, No Gallop, Regular Rate/Rhythm Breast Exam: Deferred Gastrointestinal: NOT DONE Genitalia: Deferred Pelvic: Deferred Rectal: Deferred Extremities: Normal capillary refill, Normal range of motion Neurologic: Alert, data scientist II-XII nml as Tested, No Motor Deficits, Normal Mood Cerebellar Function: Normal Reflexes: Normal Skin: Dry, Normal Color, Warm Peripheral Pulses: 2+ Radial (R), 2+ Radial (L), 2+ Brachial (R), 2+ Brachial (L) Lymphatic: No Adenopathy Was a procedure done? Was a procedure done?: No Sedation Sedation?: No Psych Differential Dx Intoxication Differential Dx: Hallucinations, CVA, Depression X-Ray, Labs, Meds, VS Vital Signs Date Time Temp Pulse Resp B/P (MAP) Pulse Ox O2 Delivery O2 Flow Rate FiO2 04/19/24 04:33 111 18 98 Room Air* 0 21 04/19/24 04:33 98.0 97 18 111/70 (84) 98 98.0 04/19/24 03:22 20 97 Room Air* 0 21 04/19/24 03:22 97.9 115 20 109/70 (83) 97 Lab Test 04/19/24 03:49 Range/Units Urine Test Negative Negative Current Medications Medications (Trade) Dose Ordered Sig/[place] Route Start Time Stop Time Status Last Admin Lorazepam (Ativan Inj) 1 mg ONCE ONCE IM 04/19/24 04:45 04/19/24 04:46 DC 04/19/24 04:44 URINE REVIEWED - NEGATIVE ATIVAN 1 MG IM ORDERED PREVIOUS CHARTS REVIEWED PATIENT HAD IMPROVEMENT IN SYMPTOMS AND WAS ASYMPTOMATIC PRIOR TO DISCHARGE ADVISED TO DRINK PLENTY OF FLUIDS ADVISED TO FOLLOW UP WITH PCP AND PSYCHIATRIST IN 1-2 DAYS PATIENT ALERT AND ORIENTED X4 PRIOR TO DISCHARGE. PATIENT VERBALIZED UNDERSTANDING AND AGREEABLE WITH CURRENT PLAN OF CARE ADVISED TO RETURN TO ER IMMEDIATELY IF SYMPTOMS WORSEN Time of 1ST Reevaluation: 04:45 Reevaluation 1ST: N/A Time of 2ND Reevaluation: 05:12 Reevaluation 2ND: Improved Patient Education/Counseling: Diagnosis, Treatment, Prognosis, Need For Follow Up Family Education/Counseling: No Family Present Departure 1 Departure Time of Disposition: 05:12 Impression: Primary Impression: Panic attack Disposition: 01 HOME / SELF CARE / HOMELESS Condition: Stable Discharged With: Friend Critical Care Note Critical Care Time?: No Stability Stability form required: No Heart Score Heart Score: Heart Score Response (Comments) Value History N/A 0 EKG N/A 0 Age N/A 0 Risk Factors N/A 0 Troponin N/A 0 Total 0 KENDALL HUBBARD Apr 19, 2024 05:16
== END 2024-04-19 05:34 | disposition home or self-care (01) ==
LOC: ER 03:09
DX: F41.0 Panic disorder [episodic paroxysmal anxiety] (principal); E11.9 Type 2 diabetes mellitus without complications; I10 Essential (primary) hypertension; E27.1 Primary adrenocortical insufficiency; Z90.49 Acquired absence of other specified parts of digestive tract
CPT/HCPCS: 81025; 96372; 99283; J2060

== ENCOUNTER 2024-04-21 03:15 | Emergency (ER) | payer MEDICAID ==
[~2024-04-21] VITALS: Ht 160 cm; Wt 83.3 kg
[2024-04-21] MEDS ORDERED: KETOROLAC TROMETH 30 MG/ML 1ML VIAL IV ONE (03:30)
[2024-04-21] MEDS ORDERED: FAMOTIDINE (10MG/ML) 2ML VL IV ONE (03:30)
[2024-04-21] MEDS ORDERED: SODIUM CHLORIDE 0.9% 1,000 ML IV ONE (03:30)
[2024-04-21] MEDS ORDERED: ONDANSETRON HCL 4 MG/2 ML VIAL IV ONE (03:30)
[2024-04-21 03:42] LABS: Basophils # (auto) 0.1 10 ^3/uL (0-0.2); Basophils % (auto) 1.1 % (0.0-2.0); Eosinophils # (auto) 0.2 10 ^3/uL (0-0.8); Eosinophils % (auto) 1.9 % (0.0-7.0); Hematocrit 40.7 % (36.0-46.0); Hemoglobin 13.4 g/dL (12.2-16.2); Lymphocytes # (auto) 2.7 10 ^3/uL (0.4-5.4); Lymphocytes % (auto) 21.9 % (10.0-50.0); Mean Corpuscular Hemoglobin 23.4 pg (28.0-32.0); Mean Corpuscular Hgb Conc. 32.9 g/dL (32.0-36.0); Mean Corpuscular Volume 71.1 fL (80.0-100.0); Monocytes # (auto) 0.7 10 ^3/uL (0-1.3); Monocytes % (auto) 5.6 % (0.0-12.0); Neutrophils # (auto) 8.5 10 ^3/uL (1.6-8.6); Neutrophils % (auto) 69.5 % (37.0-80.0); Nucleated Red Blood Cells % 0.2 %; Platelet Count (auto) 392 10^3/uL (140-450); Red Blood Cells 5.72 10^6/uL (4.0-5.20); Red Cell Distribution Width 20.1 % (11.8-14.3); White Blood Cell 12.2 10^3/uL (4.4-10.8)
--- NOTE | 2024-04-21 03:43 | ED.PDOC ---
HPI Comments 29-year-old female came to ER for chest pains. Patient seen here multiple times this month for chest pains/ anxiety attack and cannabinoid hyperemesis syndrome. About 2 hours prior to arrival, she woke up from her sleep and started having substernal chest pains, associated woth shortness of breath, nausea and vomiting. Patient felt like she was having an anxiety attack so she started taking her anxiety pills however she threw it up as well. Patient appears very anxious at this time of care. Chief Complaint: Chest Pain Time Seen by MD: 03:43 Primary Care Provider: ISMAEL Reviewed Notes: Nurses Notes Allergies: Coded Allergies: NO KNOWN ALLERGIES (Unverified , 04/28/19) Home Meds Active Scripts Cefdinir (Cefdinir) 300 Mg Cap, 1 CAP PO BID for 5 Days, #14 CAP Prov:CLAIRE DIGGS MD 04/18/24 Ciprofloxacin Hcl (Cipro) 500 Mg Tab, 1 TAB PO BID, #14 TAB Prov:JIM BOSTON MD 01/04/24 Ondansetron Odt 4MG Tab (ZOFRAN PO) 4 Mg Tb, 4 MG PO Q8HP PRN for 5 Days, #15 TAB ODT TAB-DISSOLVE IN MOUTH, THEN SWALLOW Prov:JIM BOSTON MD 01/04/24 Pantoprazole Sodium Sesquihydr (Protonix) 40 Mg Tab, 40 MG PO DAILY, #30 TAB Prov:JIM BOSTON MD 01/04/24 Hydrocodone-Acetaminophen (Hydrocodone Bitartrate/AC 5-325 mg) 1 Tab Tab, 1 TAB PO Q6HP PRN, #20 TAB Prov:ENRRIQUE VIRK DO 03/30/23 Cephalexin (KEFLEX CAPSULE) 250 Mg Cp, 1 CAP PO TIDWM, #15 CAP Prov:LUIS GUZMAN MD 01/14/23 Promethazine Hcl (Promethazine Hcl) 25 Mg Tab, 1 TAB PO Q6HPRN PRN, #14 TAB Prov:LUIS GUZMAN MD 01/14/23 Ibuprofen (Ibuprofen) 600 Mg Tab, 1 TAB PO TID PRN, #20 TAB Prov:LUIS GUZMAN MD 01/14/23 Fludrocortisone Acetate (Fludrocortisone Acetate) 0.1 Mg Tab, 0.1 MG PO DAILY, #30 TAB Prov:CHUY HERZOG MD 06/16/19 Hydrocortisone Base (Hydrocortisone) 20 Mg Tab, 50 MG PO TID, #90 TAB Prov:CHUY HERZOG MD 06/16/19 Reported Medications Sertraline Hcl (Sertraline Hcl) 50 Mg Tab, 100 MG PO DAILY for 30 Days, MG 03/29/23 Metformin Hydrochloride (Metformin Hcl) 500 Mg Tab, 500 MG PO IBID for 30 Days, MG 01/11/23 Information Source: Patient Mode of Arrival: Ambulatory Severity: Moderate Timing: Hours (2) Duration: Since onset Location: Substernal Radiation: No Radiation Quality: Sharp, Stabbing Onset: With Light Exertion Cardiac Risk Factors: None PE Risk Factors: None History of: Similar pain in past Modifying Factors: Nothing Associated Signs and Symptoms: SOB, N/V Past Medical History PAST MEDICAL HISTORY: Anxiety, DM, HTN, Thyroid Surgical History: Cholecystectomy 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 History Family History Family History: Unknown Social History Smoker: Non-Smoker Alcohol: Occasionally Drugs: Marijuana Lives In: Home Constitutional: reports: chills; denies: diaphoresis, fatigue, fever, malaise, sweats, weakness, others EENTM: denies: blurred vision, double vision, ear bleeding, ear discharge, ear drainage, ear pain, ear ringing, eye pain, eye redness, hearing loss, mouth pain, mouth swelling, nasal discharge, nose bleeding, nose congestion, nose pain, photophobia, tearing, throat pain, throat swelling, voice changes, others Respiratory: reports: SOB at rest, shortness of breath; denies: cough, hemoptysis, orthopnea, SOB with excertion, stridor, wheezing, others Cardiovascular: reports: chest pain; denies: dizzy spells, diaphoresis, Dyspnea on exertion, edema, irregular heart beat, left arm pain, lightheadedness, palpitations, PND, syncope, others Gastrointestinal: reports: nausea, vomiting; denies: abdomen distended, abdominal pain, blood streaked bowels, constipated, diarrhea, dysphagia, difficulty swallowing, hematemesis, melena, poor appetite, poor fluid intake, rectal bleeding, rectal pain, others Genitourinary: denies: abnormal vagina bleeding, burning, dyspareunia, dysuria, flank pain, frequency, hematuria, incontinence, pain, , vagina discharge, urgency, others Neurological: denies: dizziness, fainting, headache, left sided numbness, left sided weakness, numbness, paresthesia, pre-existing deficit, right sided numbness, right sided weakness, seizure, speech problems, tingling, tremors, weakness, others Musculoskeletal: denies: back pain, gout, joint pain, joint swelling, muscle pain, muscle stiffness, neck pain, others Integumetry: denies: bruises, change in color, change in hair/nails, dryness, laceration, lesions, lumps, rash, wounds, others Allergic/Immunocompromised: denies: Difficulty Healing, Frequent Infections, Hives, Itching, others Hematologic/Lymphatic: denies: anemia, blood clots, easy bleeding, easy bruising, swollen glands, others Endocrine: denies: excessive hunger, excessive sweating, excessive thirst, excessive urination, flushing, intolerance to cold, intolerance to heat, unexplained weight gain, unexplained weight loss, others Psychiatric: denies: anxiety, bipolar disorder, depression, hopeless, panic disorder, schizophrenia, sleepless, suicidal, others Physical Exam General Appearance: No Apparent Distress, Normal HEENT: Normal ENT Inspection, Pharynx Normal, TMs Normal Neck: Full Range of Motion, Non-Tender, Normal, Normal Inspection Respiratory: Chest Non-Tender, Lungs Clear, No Accessory Muscle Use, No Respiratory Distress, Normal Breath Sounds Cardiovascular: No Edema, No JVD, No Murmur, No Gallop, Normal Peripheral Pulses, Regular Rate/Rhythm Breast Exam: Deferred Gastrointestinal: No Organomegaly, Non Tender, No Pulsatile Mass, Normal Bowel Sounds, Soft Genitalia: Deferred Pelvic: Deferred Rectal: Deferred Extremities: No calf tenderness, Normal capillary refill, Normal inspection, Normal range of motion, Non-tender, No pedal edema Musculoskeletal : Apperance: Normal Neurologic: Alert, principal ios developer II-XII nml as Tested, No Motor Deficits, Normal Affect, Normal Mood, No Sensory Deficits Cerebellar Function: Normal Reflexes: Normal Skin: Dry, Normal Color, Warm Lymphatic: No Adenopathy Was a procedure done? Was a procedure done?: No CP Differential Dx Differential Diagnosis: Angina, Anxiety / Panic Attack, Hyperventilation Differential Diagnosis: Angina, Chest Wall Pain, Costochondritis, Esophageal reflux/spasm, Gastritis, Myocardial Infarction X-Ray, Labs, Meds, VS Vital Signs Date Time Temp Pulse Resp B/P (MAP) Pulse Ox O2 Delivery O2 Flow Rate FiO2 04/21/24 04:48 78 04/21/24 03:41 87 04/21/24 03:38 98.0 92 24 119/74 (89) 98 Lab Test 04/21/24 04:09 04/21/24 03:38 04/21/24 03:20 Range/Units Troponin I High Sensitivity 3 L 3 L </=34 ng/L Influenza Type A Antigen Negative Negative Influenza Type B Antigen Negative Negative SARS-CoV-2 Antigen (Rapid) Negative NEGATIVE White Blood Count 12.2 H 4.4-10.8 10^3/uL Red Blood Count 5.72 H 4.0-5.20 10^6/uL Hemoglobin 13.4 12.2-16.2 g/dL Hematocrit 40.7 # 36.0-46.0 % Mean Corpuscular Volume 71.1 L 80.0-100.0 fL Mean Corpuscular Hemoglobin 23.4 L 28.0-32.0 pg Mean Corpuscular Hemoglobin Concent 32.9 32.0-36.0 g/dL Red Cell Distribution Width 20.1 H 11.8-14.3 % Platelet Count 392 140-450 10^3/uL Mean Platelet Volume 8.3 6.9-10.8 fL Neutrophils (%) (Auto) 69.5 37.0-80.0 % Lymphocytes (%) (Auto) 21.9 10.0-50.0 % Monocytes (%) (Auto) 5.6 0.0-12.0 % Eosinophils (%) (Auto) 1.9 0.0-7.0 % Basophils (%) (Auto) 1.1 0.0-2.0 % Neutrophils # (Auto) 8.5 1.6-8.6 10 ^3/uL Lymphocytes # (Auto) 2.7 0.4-5.4 10 ^3/uL Monocytes # (Auto) 0.7 0-1.3 10 ^3/uL Eosinophils # (Auto) 0.2 0-0.8 10 ^3/uL Basophils # (Auto) 0.1 0-0.2 10 ^3/uL Nucleated Red Blood Cells 0.2 % Sodium Level 128 L 136-145 mmol/L Potassium Level 4.4 3.5-5.1 mmol/L Chloride Level 98 98-107 mmol/L Carbon Dioxide Level 19 L 20-31 mmol/L Anion Gap 11 5-15 Blood Urea Nitrogen 10 9-23 mg/dL Creatinine 0.90 0.550-1.02 mg/dL Glomerular Filtration Rate Calc 89 >90 mL/min BUN/Creatinine Ratio 11.1 10.0-20.0 Serum Glucose 119 H 74-106 mg/dL Calcium Level 10.5 H 8.7-10.4 mg/dL Time of 1ST Reevaluation: 03:37 Reevaluation 1ST: Unchanged Patient Education/Counseling: Diagnosis, Treatment Family Education/Counseling: No Family Present Departure 1 Departure Time of Disposition: 04:59 (Patient presented with chest pain that was concerning for possible STEMI, ACS, PE, Pneumonia, Muscle Strain, COPD, Dissection. Data: 1. I ordered and reviewed the result of at least 3 labs including a CBC, BMP, and Troponin. 2. I independently interpreted the following tests: EKG which shows normal sinus rhythm and Chest X-ray which shows a benign chest.Risk:This patient presented with a high risk of morbidity due to further diagnostic testing or treatment and may suffer from an acute cardiac or respiratory disorder. After review of all the data patient is unlikely to have a pe , dissection, and is low risk for acs. Patient is stable at this time.Workup so far is benign and patient will be discharged with outpatient followup. ) Impression: Primary Impression: Acute chest pain Disposition: 01 HOME / SELF CARE / HOMELESS Condition: Stable Additional Instructions: You presented today with chest pain. Your workup today was benign including labs, troponin, EKG, chest x-ray. Your pain may be from musculoskeletal strain, acid reflux, anxiety, or many ot her factors. It is important to follow up with your regular doctor within 1 week. If your symptoms worsen or you have any other concerns please return to the emergency room. Discharged With: Self Critical Care Note Critical Care Time?: No Stability Stability form required: No Heart Score Heart Score: Heart Score Response (Comments) Value History N/A 0 EKG N/A 0 Age N/A 0 Risk Factors N/A 0 Troponin N/A 0 Total 0 I personally scribed for CLAIRE DIGGS MD ([email or web address]) on 04/21/24 at 03:43. Electronically submitted by Hill Newsome ([email or web address]). CLAIRE DIGGS MD Apr 21, 2024 03:43
[2024-04-21 03:54] LABS: Potassium 4.4 mmol/L (3.5-5.1)
[2024-04-21 03:55] LABS: Anion Gap 11 (5-15)
[2024-04-21 04:00] LABS: BUN/Creatinine Ratio 11.1 (10.0-20.0); Blood Urea Nitrogen 10 mg/dL (9-23)
[2024-04-21 04:02] LABS: Calcium 10.5 mg/dL (8.7-10.4); Carbon Dioxide 19 mmol/L (20-31); Chloride 98 mmol/L (98-107); Glucose 119 mg/dL (74-106); Sodium 128 mmol/L (136-145)
[2024-04-21 04:30] VITALS: BP 115/68; PULSE 95; RESP 18; TEMP 98.2; O2SAT 97
[2024-04-21 04:38] LABS: COVID19 ANTIGEN SOFIA FIA NEGATIVE (NEGATIVE); Rapid Influenza A Negative (Negative); Rapid Influenza B Negative (Negative)
[2024-04-21 04:48] VITALS: PULSE 78
--- NOTE | 2024-04-21 05:06 | DVH ---
CHEST RADIOGRAPH Indication: chest pain Technique: Single frontal view of the chest was obtained Comparison: XY CHEST PORTABLE on DOS: 04/13/24, XY CHEST PORTABLE on DOS: 01/05/24 IMPRESSION: Heart appears normal in size. The lungs appear clear without focal airspace opacity, effusion, or pn eumothorax
[2024-04-21] MEDS: ONDANSETRON ODT 4 MG TAB PO ONE (05:20)
[2024-04-21] MEDS: KETOROLAC TROMETH 60MG/2ML VIAL IM ONE (05:20)
[2024-04-21] MEDS: LORazepam 0.5 MG TAB PO ONE (05:33)
[2024-04-21] MEDS: FAMOTIDINE 20 MG TAB PO ONE (05:33)
--- NOTE | 2024-04-22 03:49 | ECG ---
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
== END 2024-04-21 05:46 | disposition home or self-care (01) ==
LOC: ER 03:15
DX: R07.89 Other chest pain (principal); Z79.899 Other long term (current) drug therapy; Z20.822 Contact with and (suspected) exposure to COVID-19
CPT/HCPCS: 36415; 71045; 80048; 84484; 85025; 87426; 87804; 93005; 96372; 99285; J1885; Q0162

== ENCOUNTER 2024-11-26 10:18 | Inpatient (IN) | payer MEDICAID ==
[~2024-11-26] VITALS: Ht 162.6 cm; Wt 91.5 kg
--- NOTE | 2024-11-26 11:11 | ED.PDOC ---
GI ASSESSMENT HPI Comments 29 y/o F, with PMHx of of DMII, Ramirez's disease, thyroid disease, and HTN presents to the ED for CC of nausea/vomiting. Patient states, she has been experiencing symptoms of nausea and vomiting with associated diffuse abdominal pain onset, x3days ago. Patient report, current abdominal pain to be a 10/10. Patient denies change in diet, fever, chills, sweats, or melena. No other symptoms or modifying factors are present at this time. Chief Complaint: Nausea/Vomiting Time Seen by MD: 10:50 Primary Care Provider: ISMAEL Reviewed Notes: Nurses Notes, Medications, Allergies Allergies: Coded Allergies: NO KNOWN ALLERGIES (Unverified , 04/28/19) Home Meds Active Scripts Cefdinir (Cefdinir) 300 Mg Cap, 1 CAP PO BID for 5 Days, #14 CAP Prov:CLAIRE DIGGS MD 04/18/24 Ciprofloxacin Hcl (Cipro) 500 Mg Tab, 1 TAB PO BID, #14 TAB Prov:JIM BOSTON MD 01/04/24 Ondansetron Odt 4MG Tab (ZOFRAN PO) 4 Mg Tb, 4 MG PO Q8HP PRN for 5 Days, #15 TAB ODT TAB-DISSOLVE IN MOUTH, THEN SWALLOW Prov:JIM BOSTON MD 01/04/24 Pantoprazole Sodium Sesquihydr (Protonix) 40 Mg Tab, 40 MG PO DAILY, #30 TAB Prov:JIM BOSTON MD 01/04/24 Hydrocodone-Acetaminophen (Hydrocodone Bitartrate/AC 5-325 mg) 1 Tab Tab, 1 TAB PO Q6HP PRN, #20 TAB Prov:ENRRIQUE VIRK DO 03/30/23 Cephalexin (KEFLEX CAPSULE) 250 Mg Cp, 1 CAP PO TIDWM, #15 CAP Prov:LUIS GUZMAN MD 01/14/23 Promethazine Hcl (Promethazine Hcl) 25 Mg Tab, 1 TAB PO Q6HPRN PRN, #14 TAB Prov:LUIS GUZMAN MD 01/14/23 Ibuprofen (Ibuprofen) 600 Mg Tab, 1 TAB PO TID PRN, #20 TAB Prov:LUIS GUZMAN MD 01/14/23 Fludrocortisone Acetate (Fludrocortisone Acetate) 0.1 Mg Tab, 0.1 MG PO DAILY, #30 TAB Prov:CHUY HERZOG MD 06/16/19 Hydrocortisone Base (Hydrocortisone) 20 Mg Tab, 50 MG PO TID, #90 TAB Prov:CHUY HERZOG MD 06/16/19 Reported Medications Sertraline Hcl (Sertraline Hcl) 50 Mg Tab, 100 MG PO DAILY for 30 Days, MG 03/29/23 Metformin Hydrochloride (Metformin Hcl) 500 Mg Tab, 500 MG PO IBID for 30 Days, MG 01/11/23 Information Source: Patient Mode of Arrival: Ambulatory Timing: Days Duration: Since onset Prehospital treatment: None Quality: None Vomitus: Watery Stool: Normal Severity: Moderate Recent: None Recent Hx of: None Pain Location: Diffuse Modifying Factors: Nothing Associated sign and symptoms: Nausea, Vomiting, Abdominal Pain Past Medical History PAST MEDICAL HISTORY: Anxiety, DM, HTN, Thyroid Surgical History: Cholecystectomy [employer] History: No Pertinent [employer] History Family History Family History: Unknown Social History Smoker: Non-Smoker Alcohol: Occasionally Drugs: Marijuana Lives In: Home Constitutional: reports: chills; denies: diaphoresis, fatigue, fever, malaise, sweats, weakness, others EENTM: denies: blurred vision, double vision, ear bleeding, ear discharge, ear drainage, ear pain, ear ringing, eye pain, eye redness, hearing loss, mouth pain, mouth swelling, nasal discharge, nose bleeding, nose congestion, nose pain, photophobia, tearing, throat pain, throat swelling, voice changes, others Respiratory: denies: cough, hemoptysis, orthopnea, SOB at rest, shortness of breath, SOB with excertion, stridor, wheezing, others Cardiovascular: denies: chest pain, dizzy spells, diaphoresis, Dyspnea on exertion, edema, irregular heart beat, left arm pain, lightheadedness, palp itations, PND, syncope, others Gastrointestinal: reports: abdominal pain Genitourinary: denies: abnormal vagina bleeding, burning, dyspareunia, dysuria, flank pain, frequency, hematuria, incontinence, pain, , vagina discharge, urgency, others Neurological: denies: dizziness, fainting, headache, left sided numbness, left sided weakness, numbness, paresthesia, pre-existing deficit, right sided numbness, right sided weakness, seizure, speech problems, tingling, tremors, weakness, others Musculoskeletal: denies: back pain, gout, joint pain, joint swelling, muscle pain, muscle stiffness, neck pain, others Integumetry: denies: bruises, change in color, change in hair/nails, dryness, laceration, lesions, lumps, rash, wounds, others Allergic/Immunocompromised: denies: Difficulty Healing, Frequent Infections, Hives, Itching, others Hematologic/Lymphatic: denies: anemia, blood clots, easy bleeding, easy bruising, swollen glands, others Endocrine: denies: excessive hunger, excessive sweating, excessive thirst, excessive urination, flushing, intolerance to cold, intolerance to heat, unexplained weight gain, unexplained weight loss, others Psychiatric: denies: anxiety, bipolar disorder, depression, hopeless, panic disorder, schizophrenia, sleepless, suicidal, others All Other Systems: Reviewed and Negative Physical Exam General Appearance: Moderate Distress HEENT: Normal ENT Inspection, Pharynx Normal, TMs Normal Neck: Full Range of Motion, Non-Tender, Normal, Normal Inspection Respiratory: Chest Non-Tender, Lungs Clear, No Accessory Muscle Use, No Respiratory Distress, Normal Breath Sounds Cardiovascular: No Edema, No JVD, No Murmur, No Gallop, Normal Peripheral Pulses, Regular Rate/Rhythm Breast Exam: Deferred Gastrointestinal: No Organomegaly, Non Tender, No Pulsatile Mass, Normal Bowel Sounds, Soft Genitalia: Deferred Pelvic: Deferred Rectal: Deferred Extremities: No calf tenderness, Normal capillary refill, Normal inspection, Normal range of motion, Non-tender, No pedal edema Musculoskeletal : Apperance: Normal Neurologic: Alert, 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 Was a procedure done?: No GI differential Dx Differential Diagnosis: Gastritis/PUD, Gastroenteritis, Electrolyte Imbalance, Food Poisoning, Bacterial, Viral X-Ray, Labs, Meds, VS Vital Signs Date Time Temp Pulse Resp B/P (MAP) Pulse Ox O2 Delivery O2 Flow Rate FiO2 11/26/24 12:35 75 14 149/75 (99) 100 11/26/24 12:34 75 14 149/75 9/1/25 11:24 91 22 118/86 11/26/24 11:20 91 22 99 Room Air* 0 21 11/26/24 11:20 98.0 91 22 118/86 (97) 99 98.0 11/26/24 10:20 97.4 101 28 144/96 98 97.4 Lab Test 11/26/24 11:13 11/26/24 11:11 11/26/24 10:29 Range/Units White Blood Count 18.9 H 4.4-10.8 10^3/uL Red Blood Count 6.18 H 4.0-5.20 10^6/uL Hemoglobin 13.6 12.2-16.2 g/dL Hematocrit 42.0 36.0-46.0 % Mean Corpuscular Volume 68.0 L 80.0-100.0 fL Mean Corpuscular Hemoglobin 22.0 L 28.0-32.0 pg Mean Corpuscular Hemoglobin Concent 32.4 32.0-36.0 g/dL Red Cell Distribution Width 17.2 H 11.8-14.3 % Platelet Count 590 H 140-450 10^3/uL Mean Platelet Volume 7.8 6.9-10.8 fL Neutrophils (%) (Auto) 72.1 37.0-80.0 % Lymphocytes (%) (Auto) 17.1 10.0-50.0 % Monocytes (%) (Auto) 7.7 0.0-12.0 % Eosinophils (%) (Auto) 2.4 0.0-7.0 % Basophils (%) (Auto) 0.7 0.0-2.0 % Neutrophils # (Auto) 13.6 H 1.6-8.6 10 ^3/uL Lymphocytes # (Auto) 3.2 0.4-5.4 10 ^3/uL Monocytes # (Auto) 1.5 H 0-1.3 10 ^3/uL Eosinophils # (Auto) 0.5 0-0.8 10 ^3/uL Basophils # (Auto) 0.1 0-0.2 10 ^3/uL Nucleated Red Blood Cells 0.0 % Sodium Level 131 L 136-145 mmol/L Potassium Level 3.6 3.5-5.1 mmol/L Chloride Level 96 L 98-107 mmol/L Carbon Dioxide Level 18 L 20-31 mmol/L Anion Gap 17 H 5-15 Blood Urea Nitrogen 11 9-23 mg/dL Creatinine 0.90 0.550-1.02 mg/dL Glomerular Filtration Rate Calc 89 >90 mL/min BUN/Creatinine Ratio 12.2 10.0-20.0 Serum Glucose 158 H 74-106 mg/dL Calcium Level 10.5 H 8.7-10.4 mg/dL Urine Color Yellow Yellow Urine Clarity Turbid H Clear Urine pH 7.0 5.0-9.0 Urine Specific [place] 1.019 1.001-1.035 Urine Protein 1+ H Negative Urine Ketones Negative Negative Urine Blood Negative Negative /uL Urine Nitrite Negative Negative Urine Bilirubin Negative Negative Urine Urobilinogen 2 H Negative mg/dL Urine Leukocyte Esterase 1+ Negative /uL Urine RBC 6 0 - 4 /hpf Urine Microscopic WBC 24 H 0-5 /HPF Urine Squamous Epithelial Cells Mod <5 /hpf Urine Bacteria Few H None Seen /hpf Urine Hyaline Casts Few 0 - 2 /lpf Urine Granular Casts Few 0 /lpf Urine Mucus Few None Seen Urine Glucose Normal Normal mg/dL Urine Test Negative Negative POC Glucose 162 H 70-106 mg/dl Current Medications Medications (Trade) Dose Ordered Sig/[place] Route Start Time Stop Time Status Last Admin Sodium Chloride 1,000 ml @ 1,000 mls/hr Q1H ONCE IV 11/26/24 11:15 11/26/24 12:14 DC 11/26/24 11:22 Pantoprazole Sodium (Protonix) 40 mg ONCE ONCE IV 11/26/24 11:15 11/26/24 11:16 DC 11/26/24 11:23 Morphine Sulfate 4 mg ONCE ONCE IV 11/26/24 11:15 11/26/24 11:16 DC 11/26/24 11:24 Prochlorperazine Edisylate (Compazine Inj) 10 mg ONCE ONCE IV 11/26/24 11:15 11/26/24 11:16 DC 11/26/24 11:23 IV Hep-Lock was established. The patient was given a 1 L bolus of normal saline The patient was given Protonix 40 mg IV push The patient was given morphine 4 mg IV push for the pain The patient was given Compazine 10 mg IV push for the vomiting The urine test is positive for UTI The patient is being started on Rocephin 1 g IV piggyback for the UTI The CBC shows an elevated white blood cell count of 18.9 The chemistry panel is within normal limits The patient is being admitted to the hospitalist The CAT scan of the abdomen and pelvis shows: Impression: No acute noncontrast CT abnormality of the abdomen / pelvis. Atrophic adrenal glands. Cholecystectomy. The patient is being admitted at this time Images Reviewed?: Images reviewed and evaluated by me Time of 1ST Reevaluation: 11:10 Reevaluation 1ST: Unchanged Patient Education/Counseling: Diagnosis, Treatment, Prognosis Family Education/Counseling: No Family Present SEPSIS Sepsis Screen Date sepsis recognized/suspect: Nov 26, 2024 Time Sepsis recognized/suspect: 1020 Recent Procedure: No On Antibiotic Therapy: No Respiratory Rate >20: Yes Heart Rate >90: Yes Temp<36 C (96.8 F) or >38.3 C: No SBP <90 or MAP <65 mmHG: No New Acute Mental Status Change: No Is the patient on CPAP, BIPAP,: No Physician Orders Heplock Iv (11/26/24 11:01) Ct Ab Pel Wo Con-No Oral Or Iv (11/26/24 12:41) Vital Signs Date Time Temp Pulse Resp B/P (MAP) Pulse Ox O2 Delivery O2 Flow Rate FiO2 11/26/24 12:35 75 14 149/75 (99) 100 11/26/24 12:34 75 14 149/75 11/26/24 11:24 91 22 118/86 11/26/24 11:20 91 22 99 Room Air* 0 21 11/26/24 11:20 98.0 91 22 118/86 (97) 99 98.0 11/26/24 10:20 97.4 101 28 144/96 98 97.4 Laboratory Tests Test 11/26/24 11:13 White Blood Count 18.9 10^3/uL (4.4-10.8) H Medications Medications Dose Ordered Sig/[place] Route Start Time Stop Time Status Last Admin Dose Admin Morphine Sulfate 4 mg ONCE ONCE IV 11/26/24 11:15 11/26/24 11:16 DC 11/26/24 11:24 Pantoprazole Sodium 40 mg ONCE ONCE IV 11/26/24 11:15 11/26/24 11:16 DC 11/26/24 11:23 Prochlorperazine Edisylate 10 mg ONCE ONCE IV 11/26/24 11:15 11/26/24 11:16 DC 11/26/24 11:23 Sodium Chloride 1,000 ml @ 1,000 mls/hr Q1H ONCE IV 11/26/24 11:15 11/26/24 12:14 DC 11/26/24 11:22 Departure 1 Departure Time of Disposition: 14:31 Impression: Primary Impression: Intractable abdominal pain Disposition: ADMITTED INPATIENT Condition: Fair Critical Care Note Critical Care Time?: No Stability Stability form required: Yes Unstable for transfer: ED Physician Assesment (Clinical assesment) Heart Score Heart Score: Heart Score Response (Comments) Value History N/A 0 EKG N/A 0 Age N/A 0 Risk Factors N/A 0 Troponin N/A 0 Total 0 I personally scribed for JIM BOSTON MD ([email or web address]) on 11/26/24 at 11:11. Electronically submitted by Paola Machuca ([email or web address]). JIM BOSTON MD Nov 26, 2024 11:11
[2024-11-26 11:20] VITALS: PULSE 91; RESP 22; O2SAT 99
[2024-11-26] MEDS: SODIUM CHLORIDE 0.9% 1,000 ML IV ONE ×2 (11:22→19:30)
[2024-11-26] MEDS: PANTOPRAZOLE 40 MG/10 ML VIAL INJ IV ONE (11:23)
[2024-11-26] MEDS: PROCHLORPERAZINE EDISYLATE 5 MG/ML 2ML VIAL IV ONE (11:23)
[2024-11-26] MEDS: MORPHINE SULFATE 4 MG/ML SYR/VIAL IV ONE (11:24)
[2024-11-26 11:35] LABS: Hematocrit 42.0 % (36.0-46.0); Hemoglobin 13.6 g/dL (12.2-16.2); Mean Corpuscular Hemoglobin 22.0 pg (28.0-32.0); Mean Corpuscular Volume 68.0 fL (80.0-100.0); Nucleated Red Blood Cells % 0.0 %
[2024-11-26 11:39] LABS: Anion Gap 17 (5-15); Potassium 3.6 mmol/L (3.5-5.1)
[2024-11-26 11:42] LABS: Calcium 10.5 mg/dL (8.7-10.4); Carbon Dioxide 18 mmol/L (20-31); Chloride 96 mmol/L (98-107); Sodium 131 mmol/L (136-145)
[2024-11-26 11:46] LABS: BUN/Creatinine Ratio 12.2 (10.0-20.0); Blood Urea Nitrogen 11 mg/dL (9-23)
[2024-11-26 11:57] LABS: Glucose 158 mg/dL (74-106)
[2024-11-26 13:15] LABS: Urine Protein, UAD 1+ (Negative)
--- NOTE | 2024-11-26 13:54 | DVH ---
CLINICAL HISTORY: pain TECHNIQUE: CT of the abdomen and pelvis was performed without IV contrast. This exam was performed ac cording to our departmental dose optimization program. Up-to-date CT equipment and radiation dose red uction techniques are utilized as appropriate. CTDI 18.5 DLP 1101.9 COMPARISON: CT CT AB PEL WO CON-NO ORAL OR IV on DOS: 04/09/24, CT CT AB PEL WO CON-NO ORAL OR IV on D OS: 01/02/24, CT CT AB PEL WO CON-NO ORAL OR IV on DOS: 03/28/23, CT ABD PELVIS WO CONTRAST on DOS: 09/06, CT ABD PELVIS WO CONTRAST on DOS: 09/27/20 FINDINGS: Abdomen/Pelvis: The spleen, pancreas, liver, and uterus are grossly unremarkable. The adrenal glands are atrophic. The gallbladder is absent. The bladder is not well distended and therefore not well evaluated. Period of hypodense right renal l esions are incompletely characterized due to small size. There are nonspecific punctate 1 mm left deniz al parenchymal calcifications. The abdominal aorta is normal in course and caliber. There are no significant atherosclerotic calcifi cations. There is no free intraperitoneal air or fluid. There is no enlarged abdominal pelvic lymph node. There is no bowel wall thickening or dilatation. The appendix is normal. There is a miniscule fat con taining umbilical hernia. Other: The imaged lower thorax is unremarkable. No acute osseous abnormality is evident. Impression: No acute noncontrast CT abnormality of the abdomen / pelvis. Atrophic adrenal glands. Cholecystectomy.
[2024-11-26] MEDS ORDERED: ACETAMINOPHEN 325 MG TAB PO PRN (19:30)
[2024-11-26] MEDS ORDERED: ONDANSETRON HCL 4 MG/2 ML VIAL IV PRN (19:30)
[2024-11-26] MEDS ORDERED: TEMAZEPAM 15 MG CAP PO PRN (19:30)
[2024-11-26] MEDS ORDERED: HYDROcodone-ACET 5/325MG TAB PO PRN (19:30)
[2024-11-26] MEDS ORDERED: DEXTROSE (50%) 50ML SYRG IV PRN (19:30)
--- NOTE | 2024-11-26 22:12 | DVHHP2 ---
History of Present Illness Reason for Visit: Abdominal pain History of Present Illness 29-year-old female presents for evaluation of abdominal pain. Patient reports a three day history of diffuse cramping with associated nausea, vomiting, chills and intermittent diarrhea. Currently rates the pain at 5/10 intensity. Past Medical History Hypertension, diabetes mellitus, thyroid Past Surgical History Cholecystectomy Family History Noncontributory Smoke: No ALCOHOL: occassional Drugs: Marijuana Lives: with Family Review of Systems Review of Systems Review of systems are currently negative otherwise addressed in HPI. Allergies: Coded Allergies: NO KNOWN ALLERGIES (Unverified , 04/28/19) Medications Current Medications Medications Dose Ordered Sig/[place] Route Start Time Stop Time Status Last Admin Dose Admin Pantoprazole Sodium 40 mg DAILY@0600 PO 11/27/24 06:00 Diagnostic Test (Pha) 1 strip Q6HR 11/27/24 00:00 Insulin Human Regular Q6HR SC 11/27/24 00:00 Dextrose 50 ml UD PRN IV 11/26/24 19:30 Acetaminophen/ Hydrocodone Bitart 1 tab Q4HP PRN PO 11/26/24 19:30 Temazepam 15 mg QHSP PRN PO 11/26/24 19:30 Ondansetron HCl 4 mg Q4HP PRN IV 11/26/24 19:30 Acetaminophen 650 mg Q6HP PRN PO 11/26/24 19:30 Morphine Sulfate 2 mg Q8HPRN PRN IV 11/26/24 19:30 Exam Vital Signs Vital Signs Date Time Temp Pulse Resp B/P (MAP) Pulse Ox O2 Delivery O2 Flow Rate FiO2 11/26/24 19:41 77 18 140/73 (95) 99 11/26/24 11:20 Room Air* 0 21 11/26/24 11:20 98.0 98.0 Exam Gen: 29-year-old female in mild distress, obese Skin: Warm, dry, normal color and texture, no rash. HEENT: Normocephalic atraumatic, mucous membranes moist and pink. Neck: Cervical and supraclavicular nodes normal without enlargement, trachea is midline, thyroid gland is normal without masses. Pulmonary: Clear to auscultation and percussion bilaterally. Cardiac: Regular rate and rhythm. No murmur Abdomen: Soft, diffuse cramping, nondistended, bowel sounds present all 4 quadrants, no guarding, no rigidity, no organomegaly. Extremities: No cyanosis, clubbing, no edema Neuro: Cranial nerves II through XII grossly intact, normal affect and speech, no focal motor deficits. Labs/Xrays ORDERING PHYSICIAN: JIM BOSTON MD PROCEDURE(s): ABPL - CT AB PEL WO CON-NO ORAL OR IV REASON: pain ORDER NUMBER(s): [id number], ACCESSION NUMBER(s): [id number] CLINICAL HISTORY: pain TECHNIQUE: CT of the abdomen and pelvis was performed without IV contrast. This exam was performed according to our departmental dose optimization program. Up-to-date CT equipment and radiation dose reduction techniques are utilized as appropriate. CTDI 18.5 DLP 1101.9 COMPARISON: CT CT AB PEL WO CON-NO ORAL OR IV on DOS: 04/09/24, CT CT AB PEL WO CON-NO ORAL OR IV on DOS: 01/02/24, CT CT AB PEL WO CON-NO ORAL OR IV on DOS: 03/28/23, CT ABD PELVIS WO CONTRAST on DOS: 09/06/21, CT ABD PELVIS WO CONTRAST on DOS: 09/27/20 FINDINGS: Abdomen/Pelvis: The spleen, pancreas, liver, and uterus are grossly unremarkable. The adrenal glands are atrophic. The gallbladder is absent. The bladder is not well distended and therefore not well evaluated. Period of hypodense right renal lesions are incompletely characterized due to small size. There are nonspecific punctate 1 mm left renal parenchymal calcifications. The abdominal aorta is normal in course and caliber. There are no significant atherosclerotic calcifications. There is no free intraperitoneal air or fluid. There is no enlarged abdominal pelvic lymph node. There is no bowel wall thickening or dilatation. The appendix is normal. There is a miniscule fat containing umbilical hernia. Other: The imaged lower thorax is unremarkable. No acute osseous abnormality is evident. Impression: No acute noncontrast CT abnormality of the abdomen / pelvis. Atrophic adrenal glands. Cholecystectomy. Labs Test 11/26/24 11:13 11/26/24 11:11 11/26/24 10:29 Range/Units White Blood Count 18.9 H 4.4-10.8 10^3/uL Red Blood Count 6.18 H 4.0-5.20 10^6/uL Hemoglobin 13.6 12.2-16.2 g/dL Hematocrit 42.0 36.0-46.0 % Mean Corpuscular Volume 68.0 L 80.0-100.0 fL Mean Corpuscular Hemoglobin 22.0 L 28.0-32.0 pg Mean Corpuscular Hemoglobin Concent 32.4 32.0-36.0 g/dL Red Cell Distribution Width 17.2 H 11.8-14.3 % Platelet Count 590 H 140-450 10^3/uL Mean Platelet Volume 7.8 6.9-10.8 fL Neutrophils (%) (Auto) 72.1 37.0-80.0 % Lymphocytes (%) (Auto) 17.1 10.0-50.0 % Monocytes (%) (Auto) 7.7 0.0-12.0 % Eosinophils (%) (Auto) 2.4 0.0-7.0 % Basophils (%) (Auto) 0.7 0.0-2.0 % Neutrophils # (Auto) 13.6 H 1.6-8.6 10 ^3/uL Lymphocytes # (Auto) 3.2 0.4-5.4 10 ^3/uL Monocytes # (Auto) 1.5 H 0-1.3 10 ^3/uL Eosinophils # (Auto) 0.5 0-0.8 10 ^3/uL Basophils # (Auto) 0.1 0-0.2 10 ^3/uL Nucleated Red Blood Cells 0.0 % Sodium Level 131 L 136-145 mmol/L Potassium Level 3.6 3.5-5.1 mmol/L Chloride Level 96 L 98-107 mmol/L Carbon Dioxide Level 18 L 20-31 mmol/L Anion Gap 17 H 5-15 Blood Urea Nitrogen 11 9-23 mg/dL Creatinine 0.90 0.550-1.02 mg/dL Glomerular Filtration Rate Calc 89 >90 mL/min BUN/Creatinine Ratio 12.2 10.0-20.0 Serum Glucose 158 H 74-106 mg/dL Calcium Level 10.5 H 8.7-10.4 mg/dL Urine Color Yellow Yellow Urine Clarity Turbid H Clear Urine pH 7.0 5.0-9.0 Urine Specific [place] 1.019 1.001-1.035 Urine Protein 1+ H Negative Urine Ketones Negative Negative Urine Blood Negative Negative /uL Urine Nitrite Negative Negative Urine Bilirubin Negative Negative Urine Urobilinogen 2 H Negative mg/dL Urine Leukocyte Esterase 1+ Negative /uL Urine RBC 6 0 - 4 /hpf Urine Microscopic WBC 24 H 0-5 /HPF Urine Squamous Epithelial Cells Mod <5 /hpf Urine Bacteria Few H None Seen /hpf Urine Hyaline Casts Few 0 - 2 /lpf Urine Granular Casts Few 0 /lpf Urine Mucus Few None Seen Urine Glucose Normal Normal mg/dL Urine Test Negative Negative POC Glucose 162 H 70-106 mg/dl SEPSIS Sepsis Screen Date sepsis recognized/suspect: Nov 26, 2024 Time Sepsis recognized/suspect: 1119 Recent Procedure: No On Antibiotic Therapy: No Respiratory Rate >20: Yes Heart Rate >90: No Temp<36 C (96.8 F) or >38.3 C: No SBP <90 or MAP <65 mmHG: No New Acute Mental Status Change: No Is the patient on CPAP, BIPAP,: No Physician Orders Pantoprazole Tablet (Protonix Tablet) (11/27/24 06:00) Clear Liq Diet (11/27/24 Breakfast) * [facility] Life Skills Worker (11/26/24 19:30) Sodium Chloride 0.9% (11/26/24 19:30) Basic Metabolic Panel (11/27/24 04:00) Glucose Blood (Accu-Chek Comfort Curve T (11/27/24 00:00) Insulin R (Human) (Insulin R) (11/27/24 00:00) Dextrose 50% Syringe (11/26/24 19:30) Admit (11/26/24 19:30) Hydrocodone-Acet 5/325mg Tab ([place] 5/32 (11/26/24 19:30) Temazepam (Restoril) (11/26/24 19:30) Ondansetron Hcl (Zofran) (11/26/24 19:30) Complete Blood Count (11/27/24 04:00) Condition: Stable (11/26/24 19:30) Acetaminophen Tablet (Tylenol Tablet) (11/26/24 19:30) Bedrest With Bathroom Privileg (11/26/24 19:30) Morphine Sulfate Injection (11/26/24 19:30) Vital Signs Date Time Temp Pulse Resp B/P (MAP) Pulse Ox O2 Delivery O2 Flow Rate FiO2 11/26/24 19:41 77 18 140/73 (95) 99 11/26/24 15:32 77 16 122/75 (91) 98 Laboratory Tests Test 11/26/24 11:13 White Blood Count 18.9 10^3/uL (4.4-10.8) H Medications Medications Dose Ordered Sig/[place] Route Start Time Stop Time Status Last Admin Dose Admin Morphine Sulfate 4 mg ONCE ONCE IV 11/26/24 11:15 11/26/24 11:16 DC 11/26/24 11:24 4 MG Pantoprazole Sodium 40 mg ONCE ONCE IV 11/26/24 11:15 11/26/24 11:16 DC 11/26/24 11:23 40 MG Prochlorperazine Edisylate 10 mg ONCE ONCE IV 11/26/24 11:15 11/26/24 11:16 DC 11/26/24 11:23 10 MG Sodium Chloride 1,000 ml @ 1,000 mls/hr Q1H ONCE IV 11/26/24 11:15 11/26/24 12:14 DC 11/26/24 11:22 1,000 MLS/HR Assessment/Plan Assessment/Plan Assessment Acute abdominal pain UTI Leukocytosis Diabetes mellitus Plan Admit the patient to [facility] to the hospitalist GI consult Clear liquid diet Pain management Maintenance IV fluids Rocephin Continue treatment per orders. Plan discussed with: Patient My Orders Orders - RENAN YOUNGBLOODCNSg Procedure Category Date Status Time Pantoprazole Tablet PHA 11/27/24 In Process (Protonix Tablet) 06:00 Clear Liq Diet DIET 11/27/24 Transmitted Breakfast * [facility] Life Skills Worker CONS 11/26/24 Transmitted 19:30 Sodium Chloride 0.9% PHA 11/26/24 In Process 19:30 Basic Metabolic Panel LAB 11/27/24 Verified 04:00 Glucose Blood PHA 11/27/24 In Process (Accu-Chek Comfort 00:00 Insulin R (Human) PHA 11/27/24 In Process (Insulin R) 00:00 Dextrose 50% Syringe PHA 11/26/24 In Process 19:30 Admit ADMIT 11/26/24 Transmitted 19:30 Hydrocodone-Acet PHA 11/26/24 In Process 5/325mg Tab ([place] 19:30 Temazepam (Restoril) PHA 11/26/24 In Process 19:30 Ondansetron Hcl PHA 11/26/24 In Process (Zofran) 19:30 Complete Blood Count LAB 11/27/24 Verified 04:00 Condition: Stable [facility]AVA 11/26/24 In Process 19:30 Acetaminophen Tablet PHA 11/26/24 In Process (Tylenol Tablet) 19:30 Bedrest With Bathroom [place]AVA 11/26/24 In Process Privileg 19:30 Morphine Sulfate PHA 11/26/24 In Process Injection 19:30 Date of Service: Nov 26, 2024 Billing Provider: RENAN YOUNGBLOOD Common Visit Codes: [id number] INP/OBS CARE (MOD) RENAN YOUNGBLOOD Nov 26, 2024 22:11
[2024-11-27] MEDS: ACCU-CHEK COMFORT CURVE STRIP VI SCH
[2024-11-27] MEDS: InsuLIN REG 1unit/0.01ml Soln (100units/ml) SC SCH (00:31)
[2024-11-27 03:59] LABS: Anion Gap 12 (5-15); Calcium 9.8 mg/dL (8.7-10.4); Carbon Dioxide 21 mmol/L (20-31); Chloride 98 mmol/L (98-107); Potassium 4.0 mmol/L (3.5-5.1)
[2024-11-27 04:00] LABS: Sodium 131 mmol/L (136-145)
[2024-11-27 04:04] LABS: Glucose 104 mg/dL (74-106)
[2024-11-27 04:05] LABS: BUN/Creatinine Ratio 12.7 (10.0-20.0); Hematocrit 40.4 % (36.0-46.0); Hemoglobin 13.0 g/dL (12.2-16.2); Mean Corpuscular Hemoglobin 22.3 pg (28.0-32.0); Mean Corpuscular Volume 69.5 fL (80.0-100.0); Nucleated Red Blood Cells % 0.1 %
[2024-11-27 04:12] LABS: Blood Urea Nitrogen 8 mg/dL (9-23)
[2024-11-27] MEDS: PANTOPRAZOLE 40 MG TAB PO SCH (06:45)
[2024-11-27] MEDS: MORPHINE SULFATE INJ 2 MG/ml SYRG IV PRN (07:40)
[2024-11-27 07:55] VITALS: BP 129/79; PULSE 68; RESP 18; TEMP 98.3; O2SAT 100
[2024-11-27 09:00] VITALS: BP 129/79; PULSE 68; RESP 17; TEMP 98.3; O2SAT 100
[2024-11-27 13:00] VITALS: BP 115/67; PULSE 70; RESP 16; TEMP 99.4; O2SAT 95
--- NOTE | 2024-11-27 13:53 | DVHCONRES ---
Date Seen: Nov 27, 2024 Resident Creating Document: MOIZ MAGAÑA RESIDENT Reason for Consultation Abdominal pain History of Present Illness Patient is a 29-year-old female with past medical history of [place]'s disease, type 2 diabetes diagnosed 5 years ago, hypothyroidism, who comes in due to abdom inal pain. According to the patient, on Tuesday she started experiencing nausea, vomiting, diarrhea along with abdominal pain which progressively worsened associated with leg cramps. Patient notes that the abdominal pain is cramping and intermittent in nature without any exacerbating or relieving factors. According to the patient she has had 3 bowel movements over the past 24 hours all of which were watery. Patient notes she had similar symptoms last month where she went to a different hospital where she was diagnosed with cyclic vomiting syndrome, however, notes she has not used marijuana since that hospitalization 1 month ago. Of note, per patient she ate a chicken sandwich from a gas station on 1 day prior to the onset of gastrointestinal sym ptoms. CT abdomen pelvis shows no acute noncontrast CT abnormality of the abdomen/pelvis, atrophic adrenal glands. Cholecystectomy. Smoking: Denies Alcohol: Denies Drugs: Uses marijuana occasionally, last use over a month ago. Past Medical History [place]'s disease on hydrocortisone at home, type 2 diabetes, hypothyroidism currently not on any treatment. Past Surgical History Cholecystectomy, tubal ligation Family History: Patient reports no known family medical history. Allergies: Coded Allergies: NO KNOWN ALLERGIES (Unverified , 04/28/19) Home Meds Active Scripts Cefdinir (Cefdinir) 300 Mg Cap, 1 CAP PO BID for 5 Days, #14 CAP Prov:CLAIRE DIGGS MD 04/18/24 Ciprofloxacin Hcl (Cipro) 500 Mg Tab, 1 TAB PO BID, #14 TAB Prov:JIM BOSTON MD 01/04/24 Ondansetron Odt 4MG Tab (ZOFRAN PO) 4 Mg Tb, 4 MG PO Q8HP PRN for 5 Days, #15 TAB ODT TAB-DISSOLVE IN MOUTH, THEN SWALLOW Prov:JIM BOSTON MD 01/04/24 Pantoprazole Sodium Sesquihydr (Protonix) 40 Mg Tab, 40 MG PO DAILY, #30 TAB Prov:JIM BOSTON MD 01/04/24 Hydrocodone-Acetaminophen (Hydrocodone Bitartrate/AC 5-325 mg) 1 Tab Tab, 1 TAB PO Q6HP PRN, #20 TAB Prov:ENRRIQUE VIRK 03/30/23 Cephalexin (KEFLEX CAPSULE) 250 Mg Cp, 1 CAP PO TIDWM, #15 CAP Prov:LUIS GUZMAN MD 01/14/23 Promethazine Hcl (Promethazine Hcl) 25 Mg Tab, 1 TAB PO Q6HPRN PRN, #14 TAB Prov:LUIS GUZMAN MD 01/14/23 Ibuprofen (Ibuprofen) 600 Mg Tab, 1 TAB PO TID PRN, #20 TAB Prov:LUIS GUZMAN MD 01/14/23 Fludrocortisone Acetate (Fludrocortisone Acetate) 0.1 Mg Tab, 0.1 MG PO DAILY, #30 TAB Prov:CHUY HERZOG MD 06/16/19 Hydrocortisone Base (Hydrocortisone) 20 Mg Tab, 50 MG PO TID, #90 TAB Prov:CHUY HERZOG MD 06/16/19 Reported Medications Sertraline Hcl (Sertraline Hcl) 50 Mg Tab, 100 MG PO DAILY for 30 Days, MG 03/29/23 Metformin Hydrochloride (Metformin Hcl) 500 Mg Tab, 500 MG PO IBID for 30 Days, MG 01/11/23 Current Medications Current Medications Medications (Trade) Dose Ordered Sig/[place] Route PRN Reason Start Time Stop Time Status Last Admin Pantoprazole Sodium (Protonix Tablet) 40 mg DAILY@0600 PO 11/27/24 06:00 11/27/24 06:45 Diagnostic Test (Pha) (Accu-Chek Comfort Curve T) 1 strip Q6HR 11/27/24 00:00 11/27/24 12:00 Insulin Human Regular (InsuLIN R) Q6HR SC 11/27/24 00:00 Dextrose 50 ml UD PRN IV Blood Sugar LESS THAN 60 11/26/24 19:30 Acetaminophen/ Hydrocodone Bitart ([place] 5/325MG Tab) 1 tab Q4HP PRN PO MODERATE PAIN (4-6 PAIN SCALE) 11/26/24 19:30 Temazepam (Restoril) 15 mg QHSP PRN PO FOR INSOMNIA 11/26/24 19:30 Ondansetron HCl (Zofran) 4 mg Q4HP PRN IV NAUSEA / VOMITING 11/26/24 19:30 Acetaminophen (Tylenol Tablet) 650 mg Q6HP PRN PO PAIN SCALE 1-3 OR TEMP>100.4 11/26/24 19:30 Morphine Sulfate 2 mg Q8HPRN PRN IV SEVERE PAIN (7-10 PAIN SCALE) 11/26/24 19:30 11/27/24 07:40 Review of Systems Patient seen and examined at bedside. Patient is alert and oriented to time, place person and responding to all questions. Eyes: No Pain, No Vision change, No Conjunctivae inflammation, No Eyelid inflammation, No Other, No Redness ENT: No Ear pain, No Ear discharge, No Nose pain, No Nose discharge, No Nose congestion, No Mouth pain, No Mouth swelling, No Throat pain, No Throat swelling, No Other Cardiovascular: No Chest Pain, No Palpitations, No Orthopnea, No Paroxysmal No Dyspnea, No Edema, No Lt Headedness, No Other Respiratory: No Cough, No Dry, No Shortness of breath, No SOB with exertion, No Wheezing, No Hemoptysis, No Pleuritic Pain, No Sputum, No Other Gastrointestinal: Nausea, Vomiting, Abdominal Pain, Diarrhea, No Constipation, No Melena, No Hematochezia, No Other Genitourinary: No Dysuria, No Frequency, No Incontinence, No Hematuria, No Retention, No Other Musculoskeletal: No other, No neck pain, No shoulder pain, No arm pain, No back pain, No hand pain, No leg pain, No foot pain Skin: No Rash, No Lesions, No Jaundice, No Bruising, No Other Vital Signs Vital Signs Date Time Temp Pulse Resp B/P (MAP) Pulse Ox O2 Delivery O2 Flow Rate FiO2 11/27/24 09:00 98.3 68 17 129/79 (96) 100 98.3 11/27/24 07:55 Room Air* 0 21 Physical Exam General Appearance: Cooperative. Well developed. Well nourished. NAD Head Exam: Normal inspection Pulmonary/Respiratory: Chest non-tender. Clear bilateral breath sounds, no crackles, no wheezing. Cardiovascular/Chest: Regular rate and rhythm. No murmurs. No JVD. Abdominal Exam: Normal bowel sounds. Soft. normal abdomen, no visible veins, diffuse generalized tenderness to palpation No hepatospenomegaly. No masses Ankle Exam: Negative ankle edema Neuro/Mental Status: A&O x4. Coherent. Thoughts/Psych: Normal thought pattern. Appropriate mood and affect. Good judgement and insight Skin Exam: Normal inspection. Normal color. Warm. Dry Labs/Diagnostic Data Labs Test 11/27/24 12:20 11/27/24 03:20 11/26/24 11:13 11/26/24 11:11 Range/Units POC Glucose 108 H 70-106 mg/dl White Blood Count 14.6 H 4.4-10.8 10^3/uL Red Blood Count 5.81 H 4.0-5.20 10^6/uL Hemoglobin 13.0 12.2-16.2 g/dL Hematocrit 40.4 36.0-46.0 % Mean Corpuscular Volume 69.5 L 80.0-100.0 fL Mean Corpuscular Hemoglobin 22.3 L 28.0-32.0 pg Mean Corpuscular Hemoglobin Concent 32.1 32.0-36.0 g/dL Red Cell Distribution Width 17.4 H 11.8-14.3 % Platelet Count 499 H 140-450 10^3/uL Mean Platelet Volume 7.8 6.9-10.8 fL Neutrophils (%) (Auto) 61.5 37.0-80.0 % Lymphocytes (%) (Auto) 26.2 10.0-50.0 % Monocytes (%) (Auto) 6.5 0.0-12.0 % Eosinophils (%) (Auto) 4.7 0.0-7.0 % Basophils (%) (Auto) 1.1 0.0-2.0 % Neutrophils # (Auto) 9.0 H 1.6-8.6 10 ^3/uL Lymphocytes # (Auto) 3.8 0.4-5.4 10 ^3/uL Monocytes # (Auto) 1.0 0-1.3 10 ^3/uL Eosinophils # (Auto) 0.7 0-0.8 10 ^3/uL Basophils # (Auto) 0.2 0-0.2 10 ^3/uL Nucleated Red Blood Cells 0.1 % Sodium Level 131 L 136-145 mmol/L Potassium Level 4.0 3.5-5.1 mmol/L Chloride Level 98 98-107 mmol/L Carbon Dioxide Level 21 20-31 mmol/L Anion Gap 12 5-15 Blood Urea Nitrogen 8 L 9-23 mg/dL Creatinine 0.63 0.550-1.02 mg/dL Glomerular Filtration Rate Calc 123 >90 mL/min BUN/Creatinine Ratio 12.7 10.0-20.0 Serum Glucose 104 74-106 mg/dL Calcium Level 9.8 8.7-10.4 mg/dL Lipase 56 H 12-53 U/L Urine Color Yellow Yellow Urine Clarity Turbid H Clear Urine pH 7.0 5.0-9.0 Urine Specific [place] 1.019 1.001-1.035 Urine Protein 1+ H Negative Urine Ketones Negative Negative Urine Blood Negative Negative /uL Urine Nitrite Negative Negative Urine Bilirubin Negative Negative Urine Urobilinogen 2 H Negative mg/dL Urine Leukocyte Esterase 1+ Negative /uL Urine RBC 6 0 - 4 /hpf Urine Microscopic WBC 24 H 0-5 /HPF Urine Squamous Epithelial Cells Mod <5 /hpf Urine Bacteria Few H None Seen /hpf Urine Hyaline Casts Few 0 - 2 /lpf Urine Granular Casts Few 0 /lpf Urine Mucus Few None Seen Urine Glucose Normal Normal mg/dL Urine Test Negative Negative Assessment Acute intractable abdominal pain Acute gastroenteritis Hyponatremia Hypercalcemia Acute complicated UTI Possible sepsis due to above Plan: Continue supportive care IV Protonix Imodium as needed for diarrhea Ordered stool studies Carafate 1 g b.i.d. Outpatient follow up with GI if symptoms persist or worsen Resume home hydrocortisone in light of patient's Sanjiv's disease history Thank you so much for the opportunity to consult on your patient. GI team will follow the patient. In case of any questions or concerns please feel free to reach out. Plan discussed with Dr. Hendrix Plan discussed with: Patient, Other (RN) MOIZ MAGAÑA RESIDENT Nov 27, 2024 13:53
[2024-11-27] MEDS ORDERED: LOPERAMIDE HCL 2 MG CAP/TAB PO PRN (14:00)
[2024-11-27 14:36] LABS: Albumin 4.7 g/dL (3.2-4.8); Alkaline Phosphatase 50.0 U/L (46-116); Bilirubin, Direct 0.3 mg/dL (<0.3); Bilirubin, Total 0.9 mg/dL (0.2-1.0); Total Protein 7.2 g/dL (5.7-8.2)
[2024-11-27 14:39] LABS: Alanine Aminotransferase 68.0 U/L (7-40)
--- NOTE | 2024-11-27 16:49 | DVHPN2 ---
Subjective Patient continues to report having generalized abdominal pain. Reviewed: Care Plan, H&P, Labs Changes from previous H/P or p: No Changes General: Per HPI Objective Vitals Vital Signs Date Time Temp Pulse Resp B/P (MAP) Pulse Ox O2 Delivery O2 Flow Rate FiO2 11/27/24 13:00 99.4 70 16 115/67 (83) 95 99.4 11/27/24 07:55 Room Air* 0 21 General Appearance: Alert, Oriented X3, Cooperative, No acute distress HEENT: Atraumatic, PERRLA Lungs: Clear to auscultation, Normal air movement Cardiovascular: Normal S1, Normal S2 Abdomen: Normal bowel sounds, Soft, No tenderness, No hepatospenomegaly Genitourinary: No Apparent Abnormalities Musculoskeletal: Normal sensory function, Normal motor function Skin: Dry, Intact, Warm Psych/Mental Status: Mental status NL, Mood NL Medications Current Medications Medications Dose Ordered Sig/[place] Route Start Time Stop Time Status Last Admin Dose Admin Pantoprazole Sodium 40 mg DAILY@0600 PO 11/27/24 06:00 11/27/24 06:45 40 MG Diagnostic Test (Pha) 1 strip Q6HR 11/27/24 00:00 11/27/24 12:00 1 STRIP Insulin Human Regular Q6HR SC 11/27/24 00:00 Dextrose 50 ml UD PRN IV 11/26/24 19:30 Acetaminophen/ Hydrocodone Bitart 1 tab Q4HP PRN PO 11/26/24 19:30 Temazepam 15 mg QHSP PRN PO 11/26/24 19:30 Ondansetron HCl 4 mg Q4HP PRN IV 11/26/24 19:30 Acetaminophen 650 mg Q6HP PRN PO 11/26/24 19:30 Morphine Sulfate 2 mg Q8HPRN PRN IV 11/26/24 19:30 11/27/24 07:40 2 MG Sucralfate 1 gm BID@0600,2200 PO 11/27/24 22:00 Loperamide HCl 2 mg PRN PRN PO 11/27/24 14:00 Ceftriaxone Sodium 50 ml @ 100 mls/hr DAILY@09 IV 11/27/24 15:45 UNV Metronidazole 100 ml @ 100 mls/hr Q8HR IV 11/27/24 22:00 UNV Laboratory Results Laboratory Tests 11/27/24 03:20 Chemistry Test 11/27/24 03:20 11/27/24 14:03 Calcium Level 9.8 mg/dL (8.7-10.4) Albumin 4.7 g/dL (3.2-4.8) Total Protein 7.2 g/dL (5.7-8.2) LFT Test 11/27/24 14:03 Alanine Aminotransferase (ALT) 68 U/L (7-40) H Alkaline Phosphatase 50 U/L (46-116) Aspartate Amino Transferase (AST) 49 U/L (13-40) H Direct Bilirubin 0.3 mg/dL (<0.3) Total Bilirubin 0.9 mg/dL (0.2-1.0) Urinalysis Test 11/26/24 11:11 Urine Color Yellow (Yellow) Urine Clarity Turbid (Clear) H Urine pH 7.0 (5.0-9.0) Urine Specific [place] 1.019 (1.001-1.035) Urine Protein 1+ (Negative) H Urine Ketones Negative (Negative) Urine Blood Negative /uL (Negative) Urine Nitrite Negative (Negative) Urine Bilirubin Negative (Negative) Urine Urobilinogen 2 mg/dL (Negative) H Urine Leukocyte Esterase 1+ /uL (Negative) Urine RBC 6 /hpf (0 - 4) Urine Microscopic WBC 24 /HPF (0-5) H Urine Squamous Epithelial Cells Mod /hpf (<5) Urine Bacteria Few /hpf (None Seen) H Urine Hyaline Casts Few /lpf (0 - 2) Urine Granular Casts Few /lpf (0) Urine Mucus Few (None Seen) Urine Glucose Normal mg/dL (Normal) Urine Test Negative (Negative) Labs and/or images reviewed: Labs reviewed by me, Image(s) reviewed by me Assessment/Plan Assessment/Plan Impression: -sepsis -probable gastroenteritis -complicated cystitis -obesity -? Cannabinoid induced hyperemesis Plan: -start IV hydration -antibiotic therapy: Rocephin, Flagyl -GI consultation: Recommendations reviewed -repeat labs in a.m. -advanced to full liquid diet -reassess for discharge in a.m. Total time spent with patient discussing and formulating plan of care: 35 minutes. This medical document was created using an electronic medical record system with [employer] dictation system. Although this document has been carefully reviewed, there may still be some phonetic and typographical errors. These areas are purely typographical due to imperfections of the software programs, and do not reflect any compromise in the patient's medical care. Plan discussed with: Patient, Other (RN) My Orders Orders - MANUEL BLANDON NP Procedure Category Date Status Time Ceftriaxone 1gm/50ml PHA 11/27/24 Logged D5w (Rocephin) 15:45 Metronidazole PHA 11/27/24 Logged 500mg/100ml (Flagyl 22:00 Urine Bacterial SANTIAGO 11/27/24 Logged Culture 15:39 Drug Screen LAB 11/27/24 Logged 15:39 Full Liq Diet DIET 11/27/24 Transmitted Dinner NS PHA 11/27/24 Verified 16:45 Date of Service: Nov 27, 2024 Billing Provider: MANUEL BLANDON NP Common Visit Codes: [id number] INP/OBS CARE(HIGH) MANUEL BLANDON NP Nov 27, 2024 16:49
[2024-11-27 17:00] VITALS: BP 113/68; PULSE 75; RESP 17; TEMP 98.8; O2SAT 96
[2024-11-27] MEDS: SODIUM CHLORIDE 0.9% 1,000 ML IV SCH (17:16)
[2024-11-27 18:34] LABS: Lactic Acid w/Reflex 2.9 mmol/L (0.4-2.0)
[2024-11-27 20:00] VITALS: PULSE 97; RESP 18; O2SAT 98
[2024-11-27 21:00] VITALS: BP 113/72; PULSE 80; RESP 18; TEMP 97.9; O2SAT 98
[2024-11-27] MEDS: SUCRALFATE 1 GM/10 ML ORAL SUSP PO SCH (22:11)
[2024-11-27 22:44] LABS: Cannabinoid Screen, Urine Pos (NEGATIVE)
[2024-11-27 22:58] LABS: Amphetamine Screen, Urine Neg (NEGATIVE); Barbiturate Scree,Urine Neg (NEGATIVE); Benzodiazephine Screen, Urine Neg (NEGATIVE); Cocaine Screen, Urine Neg (NEGATIVE); Opiate Scree,Urine Neg (NEGATIVE); Phencyclidine Screen, Urine Neg (NEGATIVE)
[2024-11-28 05:00] VITALS: BP 113/71; PULSE 75; RESP 20; TEMP 97.1; O2SAT 96
[2024-11-28 07:50] LABS: Albumin 4.4 g/dL (3.2-4.8); Anion Gap 12 (5-15); Bilirubin, Total 0.7 mg/dL (0.2-1.0); Calcium 9.0 mg/dL (8.7-10.4); Chloride 101 mmol/L (98-107); Glucose 87 mg/dL (74-106); Potassium 4.0 mmol/L (3.5-5.1); Total Protein 7.2 g/dL (5.7-8.2)
[2024-11-28 07:57] LABS: Alanine Aminotransferase 74 U/L (7-40); Alkaline Phosphatase 44 U/L (46-116); BUN/Creatinine Ratio 8.1 (10.0-20.0); Blood Urea Nitrogen < 5 mg/dL (9-23); Carbon Dioxide 19 mmol/L (20-31); Sodium 132 mmol/L (136-145)
[2024-11-28 08:02] VITALS: RESP 18
[2024-11-28 09:00] VITALS: BP 120/74; PULSE 84; RESP 12; TEMP 98.6; O2SAT 95
[2024-11-28 09:04] LABS: Lipase 82 U/L (12-53)
--- NOTE | 2024-11-28 10:57 | DVHPN2 ---
Subjective Patient continues to report having generalized abdominal pain. Reviewed: Care Plan, H&P, Labs Changes from previous H/P or p: No Changes General: Per HPI Objective Vitals Vital Signs Date Time Temp Pulse Resp B/P (MAP) Pulse Ox O2 Delivery O2 Flow Rate FiO2 11/28/24 09:00 98.6 84 12 120/74 (89) 95 98.6 11/28/24 08:02 Room Air* 0 21 Intake/Output Intake and Output 11/28/24 07:00 Intake Total 1150 ml Balance 1150 ml Intake Oral 300 ml IV Total 300 ml Tube Feeding 550 ml # Voids 8 # Bowel Movements 2 General Appearance: Alert, Oriented X3, Cooperative, No acute distress HEENT: Atraumatic, PERRLA Lungs: Clear to auscultation, Normal air movement Cardiovascular: Normal S1, Normal S2 Abdomen: Normal bowel sounds, Soft, No tenderness, No hepatospenomegaly Genitourinary: No Apparent Abnormalities Musculoskeletal: Normal sensory function, Normal motor function Skin: Dry, Intact, Warm Psych/Mental Status: Mental status NL, Mood NL Medications Current Medications Medications Dose Ordered Sig/[place] Route Start Time Stop Time Status Last Admin Dose Admin Pantoprazole Sodium 40 mg DAILY@0600 PO 11/27/24 06:00 11/28/24 05:56 40 MG Diagnostic Test (Pha) 1 strip Q6HR 11/27/24 00:00 11/28/24 05:44 1 STRIP Insulin Human Regular Q6HR SC 11/27/24 00:00 Dextrose 50 ml UD PRN IV 11/26/24 19:30 Acetaminophen/ Hydrocodone Bitart 1 tab Q4HP PRN PO 11/26/24 19:30 Temazepam 15 mg QHSP PRN PO 11/26/24 19:30 Ondansetron HCl 4 mg Q4HP PRN IV 11/26/24 19:30 Acetaminophen 650 mg Q6HP PRN PO 11/26/24 19:30 Morphine Sulfate 2 mg Q8HPRN PRN IV 11/26/24 19:30 11/27/24 07:40 2 MG Sucralfate 1 gm BID@0600,2200 PO 11/27/24 22:00 11/28/24 05:56 1 GM Loperamide HCl 2 mg PRN PRN PO 11/27/24 14:00 Ceftriaxone Sodium 50 ml @ 100 mls/hr DAILY@09 IV 11/27/24 15:45 11/28/24 08:48 100 MLS/HR Metronidazole 100 ml @ 100 mls/hr Q8HR IV 11/27/24 22:00 11/28/24 06:00 100 MLS/HR Sodium Chloride 1,000 ml @ 75 mls/hr [id number] IV 11/27/24 16:45 11/28/24 05:56 75 MLS/HR Patient Own Medication 50 mg TID PO 11/28/24 14:00 UNV Laboratory Results Laboratory Tests 11/27/24 03:20 11/28/24 06:56 Chemistry Test 11/27/24 14:03 11/28/24 06:56 Albumin 4.7 g/dL (3.2-4.8) 4.4 g/dL (3.2-4.8) Total Protein 7.2 g/dL (5.7-8.2) 7.2 g/dL (5.7-8.2) Calcium Level 9.0 mg/dL (8.7-10.4) Lipid panel Test 11/28/24 06:56 Lipase 82 U/L (12-53) H LFT Test 11/27/24 14:03 11/28/24 06:56 Alanine Aminotransferase (ALT) 68 U/L (7-40) H 74 U/L (7-40) H Alkaline Phosphatase 50 U/L (46-116) 44 U/L (46-116) L Aspartate Amino Transferase (AST) 49 U/L (13-40) H 69 U/L (13-40) H Direct Bilirubin 0.3 mg/dL (<0.3) Total Bilirubin 0.9 mg/dL (0.2-1.0) 0.7 mg/dL (0.2-1.0) Urinalysis Test 11/26/24 11:11 Urine Color Yellow (Yellow) Urine Clarity Turbid (Clear) H Urine pH 7.0 (5.0-9.0) Urine Specific [place] 1.019 (1.001-1.035) Urine Protein 1+ (Negative) H Urine Ketones Negative (Negative) Urine Blood Negative /uL (Negative) Urine Nitrite Negative (Negative) Urine Bilirubin Negative (Negative) Urine Urobilinogen 2 mg/dL (Negative) H Urine Leukocyte Esterase 1+ /uL (Negative) Urine RBC 6 /hpf (0 - 4) Urine Microscopic WBC 24 /HPF (0-5) H Urine Squamous Epithelial Cells Mod /hpf (<5) Urine Bacteria Few /hpf (None Seen) H Urine Hyaline Casts Few /lpf (0 - 2) Urine Granular Casts Few /lpf (0) Urine Mucus Few (None Seen) Urine Glucose Normal mg/dL (Normal) Urine Test Negative (Negative) Microbiology Microbiology Date/Time Source Procedure Growth Status 11/27/24 20:00 Stool Stool Culture - Preliminary Resulted 11/27/24 20:00 Stool Shiga Toxin I & II Pending Resulted 11/27/24 20:00 Stool Clostridium difficile Toxin Assay Pending Resulted Labs and/or images reviewed: Labs reviewed by me, Image(s) reviewed by me Assessment/Plan Assessment/Plan Impression: -sepsis -probable gastroenteritis -complicated cystitis -obesity -? Cannabinoid induced hyperemesis -[place]'s disease Plan: Events: Patient's LFTs are increasing. Symptoms are improving. -continue IV fluids -start hydrocortisone 20 mg p.o. t.i.d. -antibiotic therapy: Rocephin, Flagyl -GI consultation: Recommendations reviewed -repeat labs in a.m. -advanced to full liquid diet -hepatitis panel Repeat labs in a.m. Total time spent with patient discussing and formulating plan of care: 35 minutes. This medical document was created using an electronic medical record system with [employer] dictation system. Although this document has been carefully reviewed, there may still be some phonetic and typographical errors. These areas are purely typographical due to imperfections of the software programs, and do not reflect any compromise in the patient's medical care. Plan discussed with: Patient, Other (RN) My Orders Orders - MANUEL BLANDON LANDMEN Procedure Category Date Status Time Ceftriaxone 1gm/50ml PHA 11/27/24 In Process D5w (Rocephin) 15:45 Metronidazole PHA 11/27/24 In Process 500mg/100ml (Flagyl 22:00 Urine Bacterial SANTIAGO 11/27/24 In Process Culture 15:39 Full Liq Diet DIET 11/27/24 Transmitted Dinner Sodium Chloride 0.9% PHA 11/27/24 In Process 16:45 (Nf) Hydrocortisone PHA 11/28/24 Logged Base (Hydrocortisone 14:00 Cortisol Am LAB 11/28/24 Logged 10:31 Date of Service: Nov 28, 2024 Billing Provider: MANUEL BLANDON NP Common Visit Codes: [id number] INP/OBS CARE(HIGH) MANUEL BLANDON NP Nov 28, 2024 10:57
[2024-11-28] MEDS: HYDROCORTISONE 10 MG TAB PO SCH (11:37)
[2024-11-28 13:00] VITALS: BP 117/65; PULSE 88; RESP 20; TEMP 97.8; O2SAT 95
[2024-11-28 13:29] LABS: Hepatitis B Surface Antigen Negative (Negative); Hepatitis C Antibody Negative (Negative)
[2024-11-28] MEDS ORDERED: HYDROCORTISONE PO SCH (14:00)
--- NOTE | 2024-11-28 14:07 | DVHPN2 ---
Progress Note Date Seen: Nov 28, 2024 Resident Creating Document: MOIZ MAGAÑA RESIDENT Medical Necessity Reason Pt with a Central, PICC or Fol: No Subjective Review of Systems Patient is a 29-year-old female with past medical history of [place]'s disease, type 2 diabetes diagnosed 5 years ago, hypothyroidism, who comes in due to abdominal pain. According to the patient, on Tuesday she started experiencing nausea, vomiting, diarrhea along with abdominal pain which progressively worsened associated with leg cramps. Patient notes that the abdominal pain is cramping and intermittent in nature without any exacerbating or relieving factors. According to the patient she has had 3 bowel movements over the past 24 hours all of which were watery. Patient notes she had similar symptoms last month where she went to a different hospital where she was diagnosed with cyclic vomiting syndrome, however, notes she has not used marijuana since that hospitalization 1 month ago. Of note, per patient she ate a chicken sandwich from a gas station on 1 day prior to the onset of gastrointestinal symptoms. CT abdomen pelvis shows no acute noncontrast CT abnormality of the abdomen/pelvis, atrophic adrenal glands. Cholecystectomy. Patient seen and examined at bedside, Denies any nausea, vomiting Denies any further diarrhea Is tolerating full liquid diet without any complaints Lipase up trended to 82 Objective vital signs Vital Sign Date Time Temp Pulse Resp B/P (MAP) Pulse Ox O2 Delivery O2 Flow Rate FiO2 11/28/24 09:00 98.6 84 12 120/74 (89) 95 98.6 11/28/24 08:02 Room Air* 0 21 Total Intake and Output 11/27/24 11/27/24 11/28/24 15:00 23:00 07:00 Intake Total 650 ml 500 ml Balance 650 ml 500 ml medications Current Medications Medications Dose Ordered Sig/[place] Route Start Time Stop Time Status Last Admin Dose Admin Pantoprazole Sodium 40 mg DAILY@0600 PO 11/27/24 06:00 11/28/24 05:56 40 MG Diagnostic Test (Pha) 1 strip Q6HR 11/27/24 00:00 11/28/24 11:31 1 STRIP Insulin Human Regular Q6HR SC 11/27/24 00:00 Dextrose 50 ml UD PRN IV 11/26/24 19:30 Acetaminophen/ Hydrocodone Bitart 1 tab Q4HP PRN PO 11/26/24 19:30 Temazepam 15 mg QHSP PRN PO 11/26/24 19:30 Ondansetron HCl 4 mg Q4HP PRN IV 11/26/24 19:30 Acetaminophen 650 mg Q6HP PRN PO 11/26/24 19:30 Morphine Sulfate 2 mg Q8HPRN PRN IV 11/26/24 19:30 11/27/24 07:40 2 MG Sucralfate 1 gm BID@0600,2200 PO 11/27/24 22:00 11/28/24 05:56 1 GM Loperamide HCl 2 mg PRN PRN PO 11/27/24 14:00 Ceftriaxone Sodium 50 ml @ 100 mls/hr DAILY@09 IV 11/27/24 15:45 11/28/24 08:48 100 MLS/HR Metronidazole 100 ml @ 100 mls/hr Q8HR IV 11/27/24 22:00 11/28/24 13:54 100 MLS/HR Sodium Chloride 1,000 ml @ 75 mls/hr [id number] IV 11/27/24 16:45 11/28/24 05:56 75 MLS/HR Patient Own Medication 50 mg TID PO 11/28/24 14:00 Cancel Hydrocortisone 30 mg TIDWM PO 11/28/24 12:00 11/28/24 11:37 30 MG Examination General Appearance: Cooperative. Well developed. Well nourished. NAD Head Exam: Normal inspection Pulmonary/Respiratory: Chest non-tender. Clear bilateral breath sounds, no crackles, no wheezing. Cardiovascular/Chest: Regular rate and rhythm. No murmurs. No JVD. Abdominal Exam: Normal bowel sounds. Soft. normal abdomen, no visible veins, nontender abdomen No hepatospenomegaly. No masses Ankle Exam: Negative ankle edema Neuro/Mental Status: A&O x4. Coherent. Thoughts/Psych: Normal thought pattern. Appropriate mood and affect. Good judgement and insight Skin Exam: Normal inspection. Normal color. Warm. Dry laboratory and microbiology Laboratory Tests 11/28/24 06:56 11/27/24 03:20 Test 11/28/24 06:56 Range/Units Serum Glucose 87 74-106 mg/dL Microbiology Date/Time Source Procedure Growth Status 11/27/24 20:00 Stool Stool Culture - Preliminary Resulted 11/27/24 20:00 Stool Shiga Toxin I & II Pending Resulted 11/27/24 20:00 Stool Clostridium difficile Toxin Assay - Final Resulted Labs and/or images reviewed: Labs reviewed by me, Image(s) reviewed by me Problem List/Assessment/Plan Problem List/Assessment/Plan Acute intractable abdominal pain Acute gastroenteritis Hyponatremia Hypercalcemia Acute complicated UTI Possible sepsis due to above Plan: Continue supportive care IV Protonix Imodium as needed for diarrhea Ordered stool studies Carafate 1 g b.i.d. 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 GI team will follow the patient. In case of any questions or concerns please feel free to reach out. Plan discussed with Dr. Hendrix Plan discussed with: Patient, Other (RN) MOIZ MAGAÑA RESIDENT Nov 28, 2024 14:07
[2024-11-28 17:00] VITALS: BP 132/76; PULSE 93; RESP 20; TEMP 95.7; O2SAT 96
[2024-11-28 21:00] VITALS: BP 128/70; PULSE 65; RESP 18; TEMP 97.5; O2SAT 97
[2024-11-29 01:00] VITALS: BP 120/74; PULSE 85; RESP 18; TEMP 96.9; O2SAT 98
[2024-11-29 05:00] VITALS: BP 119/83; PULSE 89; RESP 18; TEMP 98; O2SAT 98
[2024-11-29 08:00] VITALS: PULSE 79; RESP 18; O2SAT 98
[2024-11-29 09:07] VITALS: BP 116/78; PULSE 77; RESP 15; TEMP 98.2; O2SAT 97
[2024-11-29] MEDS ORDERED: PANT40TA2 PO (09:17)
--- NOTE | 2024-11-29 09:22 | DVHDS2 ---
Discharge Summary Date of Admission Nov 26, 2024 at 19:30 Date of Discharge: Nov 29, 2024 Admitting Diagnosis Acute abdominal pain Labs/Diagnostic Data: Laboratory Results Test 11/29/24 08:27 11/29/24 04:56 11/28/24 11:53 11/28/24 06:56 POC Glucose 105 mg/dl (70-106) Hepatitis A IgM Antibody Negative Hepatitis B Surface Antigen Negative (Negative) Hepatitis B Core IgM Antibody Negative (Negative) Hepatitis C Antibody Negative (Negative) Sodium Level 132 mmol/L (136-145) Potassium Level 4.0 mmol/L (3.5-5.1) Chloride Level 101 mmol/L (98-107) Carbon Dioxide Level 19 mmol/L (20-31) Anion Gap 12 (5-15) Blood Urea Nitrogen < 5 mg/dL (9-23) Creatinine 0.62 mg/dL (0.550-1.02) Glomerular Filtration Rate Calc 124 mL/min (>90) BUN/Creatinine Ratio 8.1 (10.0-20.0) Serum Glucose 87 mg/dL (74-106) Calcium Level 9.0 mg/dL (8.7-10.4) Total Bilirubin 0.7 mg/dL (0.2-1.0) Aspartate Amino Transferase (AST) 69 U/L (13-40) Alanine Aminotransferase (ALT) 74 U/L (7-40) Alkaline Phosphatase 44 U/L (46-116) Total Protein 7.2 g/dL (5.7-8.2) Albumin 4.4 g/dL (3.2-4.8) Lipase 82 U/L (12-53) Test 11/27/24 21:15 11/27/24 18:51 11/27/24 14:03 11/27/24 03:20 Urine Opiates Screen Neg (NEGATIVE) Urine Fentanyl Screen Neg (NEGATIVE) Urine Barbiturates Screen Neg (NEGATIVE) Urine Phencyclidine Screen Neg (NEGATIVE) Urine Amphetamines Screen Neg (NEGATIVE) Urine Benzodiazepines Screen Neg (NEGATIVE) Urine Cocaine Screen Neg (NEGATIVE) Urine Cannabinoids Screen Pos (NEGATIVE) Lactic Acid Level 1.2 mmol/L (0.4-2.0) Direct Bilirubin 0.3 mg/dL (<0.3) White Blood Count 14.6 10^3/uL (4.4-10.8) Red Blood Count 5.81 10^6/uL (4.0-5.20) Hemoglobin 13.0 g/dL (12.2-16.2) Hematocrit 40.4 % (36.0-46.0) Mean Corpuscular Volume 69.5 fL (80.0-100.0) Mean Corpuscular Hemoglobin 22.3 pg (28.0-32.0) Mean Corpuscular Hemoglobin Concent 32.1 g/dL (32.0-36.0) Red Cell Distribution Width 17.4 % (11.8-14.3) Platelet Count 499 10^3/uL (140-450) Mean Platelet Volume 7.8 fL (6.9-10.8) Neutrophils (%) (Auto) 61.5 % (37.0-80.0) Lymphocytes (%) (Auto) 26.2 % (10.0-50.0) Monocytes (%) (Auto) 6.5 % (0.0-12.0) Eosinophils (%) (Auto) 4.7 % (0.0-7.0) Basophils (%) (Auto) 1.1 % (0.0-2.0) Neutrophils # (Auto) 9.0 10 ^3/uL (1.6-8.6) Lymphocytes # (Auto) 3.8 10 ^3/uL (0.4-5.4) Monocytes # (Auto) 1.0 10 ^3/uL (0-1.3) Eosinophils # (Auto) 0.7 10 ^3/uL (0-0.8) Basophils # (Auto) 0.2 10 ^3/uL (0-0.2) Nucleated Red Blood Cells 0.1 % Test 11/26/24 11:11 Urine Color Yellow (Yellow) Urine Clarity Turbid (Clear) Urine pH 7.0 (5.0-9.0) Urine Specific [place] 1.019 (1.001-1.035) Urine Protein 1+ (Negative) Urine Ketones Negative (Negative) Urine Blood Negative /uL (Negative) Urine Nitrite Negative (Negative) Urine Bilirubin Negative (Negative) Urine Urobilinogen 2 mg/dL (Negative) Urine Leukocyte Esterase 1+ /uL (Negative) Urine RBC 6 /hpf (0 - 4) Urine Microscopic WBC 24 /HPF (0-5) Urine Squamous Epithelial Cells Mod /hpf (<5) Urine Bacteria Few /hpf (None Seen) Urine Hyaline Casts Few /lpf (0 - 2) Urine Granular Casts Few /lpf (0) Urine Mucus Few (None Seen) Urine Glucose Normal mg/dL (Normal) Urine Test Negative (Negative) Other Laboratory Tests 11/28/24 06:56 11/27/24 03:20 Brief Hx & Hospital Course: History of Present Illness 29-year-old female presents for evaluation of abdominal pain. Patient reports a three day history of diffuse cramping with associated nausea, vomiting, chills and intermittent diarrhea. Currently rates the pain at 5/10 intensity. Course of hospitalization: Patient was given bowel rest, treated with IV antibiotic therapy, as well as IV hydration. Patient's white blood cell count improved. Patient had improvement with holding down oral intake. Nausea has resolved. Pain has resolved. Patient will be discharged home with instructions to decrease use of cannabinoid products, follow up with her PCP in 1-2 weeks. Patient will be continued on PPI in the form of Protonix 40 mg p.o. daily for the next two weeks. Patient was agreeable with discharge plan. All questions answered. Physical examination General: Alert and Oriented x3. No acute distress. Well-nourished. Obese Eyes: EOMI. Anicteric. HENT: Moist mucous membranes. Lungs: Clear to auscultation bilaterally. No accessory muscle use. Cardiovascular: Regular rate and rhythm. No murmur. No JVD. Abdomen: Soft, non-tender and non-distended. No palpable masses. Extremities: No edema. Non-tender. Skin: No rashes or lesions. Warm. Neurologic: No focal neurological deficits. CN II-XII grossly intact, but not individually tested. Psychiatric: Cooperative. Appropriate mood and affect. Total time spent with patient discussing and formulating plan of care: 35 minutes. This medical document was created using an electronic medical record system with [id number] dictation system. Although this document has been carefully reviewed, there may still be some phonetic and typographical errors. These areas are purely typographical due to imperfections of the software programs, and do not reflect any compromise in the patient's medical care. Consults/Reason for consult Gastroenterology: Acute abdominal pain Condition at Discharge: Fair Final Diagnosis/Problems List Acute gastroenteritis -sepsis -probable gastroenteritis -complicated cystitis -obesity -? Cannabinoid induced hyperemesis -[place]'s disease Discharge Disposition: Home Discharge Instruct/Medications Diet: Regular Activity: No Restrictions, As Tolerated Follow Up/Referral: PCP in 1-2 weeks Medications: Continue all home medications Protonix 40 mg p.o. daily Scheduled Cefdinir (Cefdinir), 1 CAP PO BID Cephalexin (Keflex Capsule), 1 CAP PO TIDWM Ciprofloxacin Hcl (Cipro), 1 TAB PO BID Fludrocortisone Acetate (Fludrocortisone Acetate), 0.1 MG PO DAILY Hydrocortisone Base (Hydrocortisone), 50 MG PO TID Metformin Hydrochloride (Metformin Hcl), 500 MG PO IBID, (Reported) Pantoprazole Sodium Sesquihydr (Protonix), 40 MG PO DAILY Pantoprazole Sodium Sesquihydr (Protonix), 40 MG PO DAILY Sertraline Hcl (Sertraline Hcl), 100 MG PO DAILY, (Reported) Scheduled PRN Hydrocodone-Acetaminophen (Hydrocodone Bitartrate/AC 5-325 mg), 1 TAB PO Q6HP PRN Ibuprofen (Ibuprofen), 1 TAB PO TID PRN Ondansetron Odt 4MG Tab (Zofran Po), 4 MG PO Q8HP PRN Promethazine Hcl (Promethazine Hcl), 1 TAB PO Q6HPRN PRN 36 Discharge Statement: "Patient was advised to return to the ER or call 911 if any headaches, dizziness, shortness of breath, chest pain, abdominal pain, bleeding, fevers, or worsening of medical condition. Patient was counseled about treatment plan, medications, possible side effects, patientverbalized understanding. All questions were answered to the best of my ability. This discharge took greater then 30 minutes in planning, reviewing documentation, counseling the patient, and discussing with other team members." ASSESSMENT ASSESSMENT Assessment Acute gastroenteritis Date of Service: Nov 29, 2024 Billing Provider: MANUEL BLANDON NP Common Visit Codes: 03657-AEY/OBS DISCH DAY >30min MANUEL BLANDON NP Nov 29, 2024 09:22
--- NOTE | 2024-11-29 10:22 | DVHPN2 ---
Progress Note Date Seen: Nov 29, 2024 Resident Creating Document: MOIZ MAGAÑA RESIDENT Medical Necessity Reason Pt with a Central, PICC or Fol: No Subjective Review of Systems Patient seen and examined at bedside Denies any nausea, vomiting, abdominal pain Denies any further diarrhea Tolerating diet Objective vital signs Vital Sign Date Time Temp Pulse Resp B/P (MAP) Pulse Ox O2 Delivery O2 Flow Rate FiO2 11/29/24 09:07 98.2 77 15 116/78 (91) 97 98.2 11/29/24 08:00 Room Air* 0 21 Total Intake and Output 11/28/24 11/28/24 11/29/24 15:00 23:00 07:00 Intake Total 1800 ml Balance 1800 ml medications Current Medications Medications Dose Ordered Sig/[place] Route Start Time Stop Time Status Last Admin Dose Admin Pantoprazole Sodium 40 mg DAILY@0600 PO 11/27/24 06:00 11/29/24 06:03 40 MG Diagnostic Test (Pha) 1 strip Q6HR 11/27/24 00:00 11/29/24 06:04 1 STRIP Insulin Human Regular Q6HR SC 11/27/24 00:00 Dextrose 50 ml UD PRN IV 11/26/24 19:30 Acetaminophen/ Hydrocodone Bitart 1 tab Q4HP PRN PO 11/26/24 19:30 Temazepam 15 mg QHSP PRN PO 11/26/24 19:30 Ondansetron HCl 4 mg Q4HP PRN IV 11/26/24 19:30 Acetaminophen 650 mg Q6HP PRN PO 11/26/24 19:30 Morphine Sulfate 2 mg Q8HPRN PRN IV 11/26/24 19:30 11/27/24 07:40 2 MG Sucralfate 1 gm BID@0600,2200 PO 11/27/24 22:00 11/29/24 06:04 1 GM Loperamide HCl 2 mg PRN PRN PO 11/27/24 14:00 Ceftriaxone Sodium 50 ml @ 100 mls/hr DAILY@09 IV 11/27/24 15:45 11/29/24 09:45 100 MLS/HR Metronidazole 100 ml @ 100 mls/hr Q8HR IV 11/27/24 22:00 11/29/24 06:03 100 MLS/HR Sodium Chloride 1,000 ml @ 75 mls/hr [id number] IV 11/27/24 16:45 11/28/24 19:29 75 MLS/HR Patient Own Medication 50 mg TID PO 11/28/24 14:00 Cancel Hydrocortisone 30 mg TIDWM PO 11/28/24 12:00 11/29/24 09:44 30 MG Examination General Appearance: Cooperative. Well developed. Well nourished. NAD Head Exam: Normal inspection Pulmonary/Respiratory: Chest non-tender. Clear bilateral breath sounds, no crackles, no wheezing. Cardiovascular/Chest: Regular rate and rhythm. No murmurs. No JVD. Abdominal Exam: Normal bowel sounds. Soft. normal abdomen, no visible veins, nontender abdomen No hepatospenomegaly. No masses Ankle Exam: Negative ankle edema Neuro/Mental Status: A&O x4. Coherent. Thoughts/Psych: Normal thought pattern. Appropriate mood and affect. Good judgement and insight Skin Exam: Normal inspection. Normal color. Warm. Dry laboratory and microbiology Laboratory Tests 11/28/24 06:56 11/27/24 03:20 Test 11/28/24 06:56 Range/Units Serum Glucose 87 74-106 mg/dL Microbiology Date/Time Source Procedure Growth Status 11/27/24 20:00 Stool Stool Culture - Preliminary Resulted 11/27/24 20:00 Stool Shiga Toxin I & II - Final Resulted 11/27/24 20:00 Stool Clostridium difficile Toxin Assay - Final Resulted Labs and/or images reviewed: Labs reviewed by me, Image(s) reviewed by me Problem List/Assessment/Plan Problem List/Assessment/Plan Acute intractable abdominal pain Acute gastroenteritis Hyponatremia Hypercalcemia Acute complicated UTI Possible sepsis due to above Plan: Continue supportive care IV Protonix Imodium as needed for diarrhea Ordered stool studies Carafate 1 g b.i.d. Outpatient follow up with GI if symptoms persist or worsen Resume home hydrocortisone in light of patient's Sanjiv's disease history Consider following up with GI in the outpatient as needed if the symptoms persist Thank you so much for the opportunity to consult on your patient. GI team will follow the patient. In case of any questions or concerns please feel free to reach out. Plan discussed with Dr. Hendrix Plan discussed with: Patient, Other (RN) My Orders My Orders Orders - MOIZ MAGAÑA Procedure Category Date Status Time Complete Blood Count LAB 11/29/24 Logged 08:47 Basic Metabolic Panel LAB 11/29/24 Logged 08:47 Lipase LAB 11/29/24 Logged 08:47 MOIZ MAGAÑA RESIDENT Nov 29, 2024 10:22
[2024-11-29 11:01] VITALS: BP 116/78; PULSE 77; RESP 18; TEMP 98.2; O2SAT 97
[2024-11-29 11:11] LABS: Chloride 102 mmol/L (98-107); Potassium 3.8 mmol/L (3.5-5.1)
[2024-11-29 11:12] LABS: Anion Gap 10 (5-15); Carbon Dioxide 22 mmol/L (20-31); Sodium 134 mmol/L (136-145)
[2024-11-29 11:13] LABS: Calcium 9.3 mg/dL (8.7-10.4); Hematocrit 37.8 % (36.0-46.0); Hemoglobin 12.4 g/dL (12.2-16.2); Mean Corpuscular Hemoglobin 22.3 pg (28.0-32.0); Mean Corpuscular Volume 68.3 fL (80.0-100.0); Nucleated Red Blood Cells % 0.0 %
[2024-11-29 11:17] LABS: Glucose 85 mg/dL (74-106)
[2024-11-29 11:18] LABS: BUN/Creatinine Ratio 9.7 (10.0-20.0); Blood Urea Nitrogen 6 mg/dL (9-23); Lipase 74 U/L (12-53)
== END 2024-11-29 11:30 | disposition home or self-care (01) | DRG 720 ==
LOC: ER 10:18 → OVERFLOW 19:30 → EAST 11-27 19:01
PROVIDERS: ADMIT Nurse Practitioner Acute Care; ATTEND Nurse Practitioner Acute Care
DX: A41.9 Sepsis, unspecified organism (principal); E11.00 Type 2 diabetes mellitus with hyperosmolarity without nonketotic hyperglycemic-hyperosmolar coma (NKHHC); A04.9 Bacterial intestinal infection, unspecified; E27.1 Primary adrenocortical insufficiency; N30.90 Cystitis, unspecified without hematuria; E11.9 Type 2 diabetes mellitus without complications; E66.9 Obesity, unspecified; E87.1 Hypo-osmolality and hyponatremia; E83.52 Hypercalcemia; I10 Essential (primary) hypertension; F41.9 Anxiety disorder, unspecified; E03.9 Hypothyroidism, unspecified; F12.90 Cannabis use, unspecified, uncomplicated; Z90.49 Acquired absence of other specified parts of digestive tract; Z68.34 Body mass index [BMI] 34.0-34.9, adult; Z79.84 Long term (current) use of oral hypoglycemic drugs; Z79.899 Other long term (current) drug therapy
CPT/HCPCS: 36415; 74176; 80048; 80053; 80074; 80076; 80307; 81001; 81025; 82533; 82962; 83605; 83690; 85025; 87045; 87077; 87086; 87186; 87493; 96361; 96374; 96375; G0378; J2470; J3490

== ENCOUNTER 2024-12-06 04:20 | Inpatient (IN) | payer MEDICAID ==
[~2024-12-06] VITALS: Ht 160 cm; Wt 90.6 kg
--- NOTE | 2024-12-06 04:40 | ECG ---
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
--- NOTE | 2024-12-06 06:32 | ED.PDOC ---
History of Present Illness HPI Comments 29 y/o F, with PMHx of anxiety, DM, and HTN presents to the ED for CC of anxiety. Patient states, she has been experiencing symptoms of anxiety with associated chest "pressure" and "discomfort" x1day. Patient reports, that she was recently Dx with gastritis and believes chest discomfort maybe related however, anxiousness has not ceased. Patient denies palpitations, shortness of breath, nausea, or vomiting. No other symptoms or modifying factors are present at this time. Chief Complaint: Anxiety Time Seen by MD: 06:30 Primary Care Provider: ISMAEL Reviewed Notes: Nurses Notes, Medications, Allergies Allergies: Coded Allergies: NO KNOWN ALLERGIES (Unverified , 04/28/19) Home Meds Active Scripts Pantoprazole Sodium Sesquihydr (Protonix) 40 Mg Tab, 40 MG PO DAILY for 14 Days, #14 TAB Prov:MANUEL BLANDON NP 11/29/24 Cefdinir (Cefdinir) 300 Mg Cap, 1 CAP PO BID for 5 Days, #14 CAP Prov:CLAIRE DIGGS MD 04/18/24 Ciprofloxacin Hcl (Cipro) 500 Mg Tab, 1 TAB PO BID, #14 TAB Prov:JIM BOSTON MD 01/04/24 Ondansetron Odt 4MG Tab (ZOFRAN PO) 4 Mg Tb, 4 MG PO Q8HP PRN for 5 Days, #15 TAB ODT TAB-DISSOLVE IN MOUTH, THEN SWALLOW Prov:JIM BOSTON MD 01/04/24 Pantoprazole Sodium Sesquihydr (Protonix) 40 Mg Tab, 40 MG PO DAILY, #30 TAB Prov:JIM BOSTON MD 01/04/24 Hydrocodone-Acetaminophen (Hydrocodone Bitartrate/AC 5-325 mg) 1 Tab Tab, 1 TAB PO Q6HP PRN, #20 TAB Prov:ENRRIQUE VIRK DO 03/30/23 Cephalexin (KEFLEX CAPSULE) 250 Mg Cp, 1 CAP PO TIDWM, #15 CAP Prov:LUIS GUZMAN MD 01/14/23 Promethazine Hcl (Promethazine Hcl) 25 Mg Tab, 1 TAB PO Q6HPRN PRN, #14 TAB Prov:LUIS GUZMAN MD 01/14/23 Ibuprofen (Ibuprofen) 600 Mg Tab, 1 TAB PO TID PRN, #20 TAB Prov:LUIS GUZMAN MD 01/14/23 Fludrocortisone Acetate (Fludrocortisone Acetate) 0.1 Mg Tab, 0.1 MG PO DAILY, #30 TAB Prov:CHUY HERZOG MD 06/16/19 Hydrocortisone Base (Hydrocortisone) 20 Mg Tab, 50 MG PO TID, #90 TAB Prov:CHUY HERZOG MD 06/16/19 Reported Medications Sertraline Hcl (Sertraline Hcl) 50 Mg Tab, 100 MG PO DAILY for 30 Days, MG 03/29/23 Metformin Hydrochloride (Metformin Hcl) 500 Mg Tab, 500 MG PO IBID for 30 Days, MG 01/11/23 Information Source: Patient Mode of Arrival: Ambulatory Severity: Moderate Timing: Days Duration: Since onset Prehospital treatment: None Past Medical History PAST MEDICAL HISTORY: Anxiety, DM, HTN, Thyroid Surgical History: Cholecystectomy 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 SEWER SHOES History: No Pertinent HAND SEWER SHOES History Family History Family History: Unknown Social History Smoker: Non-Smoker Alcohol: Occasionally Drugs: Marijuana Lives In: Home Constitutional: denies: chills, diaphoresis, fatigue, fever, malaise, sweats, weakness, others EENTM: denies: blurred vision, double vision, ear bleeding, ear discharge, ear drainage, ear pain, ear ringing, eye pain, eye redness, hearing loss, mouth pain, mouth swelling, nasal discharge, nose bleeding, nose congestion, nose pain, photophobia, tearing, throat pain, throat swelling, voice changes, others Respiratory: denies: cough, hemoptysis, orthopnea, SOB at rest, shortness of breath, SOB with excertion, stridor, wheezing, others Cardiovascular: reports: chest pain; denies: dizzy spells, diaphoresis, Dyspnea on exertion, edema, irregular heart beat, left arm pain, lightheadedness, palpitations, PND, syncope, others Gastrointestinal: denies: abdomen distended, abdominal pain, blood streaked bowels, constipated, diarrhea, dysphagia, difficulty swallowing, hematemesis, melena, nausea, poor appetite, poor fluid intake, rectal bleeding, rectal pain, vomiting, others Genitourinary: denies: abnormal vagina bleeding, burning, dyspareunia, dysuria, flank pain, frequency, hematuria, incontinence, pain, , vagina discharge, urgency, others Neurological: denies: dizziness, fainting, headache, left sided numbness, left sided weakness, numbness, paresthesia, pre-existing deficit, right sided numbness, right sided weakness, seizure, speech problems, tingling, tremors, weakness, others Musculoskeletal: denies: back pain, gout, joint pain, joint swelling, muscle pain, muscle stiffness, neck pain, others Integumetry: denies: bruises, change in color, change in hair/nails, dryness, laceration, lesions, lumps, rash, wounds, others Allergic/Immunocompromised: denies: Difficulty Healing, Frequent Infections, Hives, Itching, others Hematologic/Lymphatic: denies: anemia, blood clots, easy bleeding, easy bruising, swollen glands, others Endocrine: denies: excessive hunger, excessive sweating, excessive thirst, excessive urination, flushing, intolerance to cold, intolerance to heat, unexplained weight gain, unexplained weight loss, others Psychiatric: reports: anxiety; denies: bipolar disorder, depression, hopeless, panic disorder, schizophrenia, sleepless, suicidal, others All Other Systems: Reviewed and Negative Physical Exam General Appearance: No Apparent Distress, Normal, Other (ANXIOUS APPEARING) HEENT: Normal ENT Inspection, Pharynx Normal Neck: Full Range of Motion, Non-Tender, Normal, Normal Inspection Respiratory: Chest Non-Tender, Lungs Clear, No Accessory Muscle Use, No Respiratory Distress, Normal Breath Sounds Cardiovascular: No Edema, No Murmur, No Gallop, Normal Peripheral Pulses, Regular Rate/Rhythm Breast Exam: Deferred Gastrointestinal: No Organomegaly, Non Tender, No Pulsatile Mass, Normal Bowel Sounds, Soft Genitalia: Deferred Pelvic: Deferred Rectal: Deferred Extremities: No calf tenderness, Normal capillary refill, Normal inspection, Normal range of motion, Non-tender, No pedal edema Musculoskeletal : Apperance: Normal Neurologic: Alert, 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 Was a procedure done?: No Differential Dx Considerations may include: ANXIETY, GERD, GASTRITIS, COSTOCHONDRITIS, ANGINA X-Ray, Labs, Meds, VS Vital Signs Date Time Temp Pulse Resp B/P (MAP) Pulse Ox O2 Delivery O2 Flow Rate FiO2 12/06/24 09:40 98.7 93 22 121/74 (90) 98 98.7 12/06/24 04:31 88 12/06/24 04:21 98.9 110 18 105/62 99 98.9 Lab Test 12/06/24 08:55 12/06/24 04:45 Range/Units Troponin I High Sensitivity < 3 L < 3 L </=34 ng/L White Blood Count 10.7 4.4-10.8 10^3/uL Red Blood Count 6.09 H 4.0-5.20 10^6/uL Hemoglobin 14.0 12.2-16.2 g/dL Hematocrit 41.6 # 36.0-46.0 % Mean Corpuscular Volume 68.4 L 80.0-100.0 fL Mean Corpuscular Hemoglobin 22.9 L 28.0-32.0 pg Mean Corpuscular Hemoglobin Concent 33.5 32.0-36.0 g/dL Red Cell Distribution Width 17.6 H 11.8-14.3 % Platelet Count 494 H 140-450 10^3/uL Mean Platelet Volume 8.6 6.9-10.8 fL Neutrophils (%) (Auto) 67.3 37.0-80.0 % Lymphocytes (%) (Auto) 22.8 10.0-50.0 % Monocytes (%) (Auto) 5.7 0.0-12.0 % Eosinophils (%) (Auto) 3.2 0.0-7.0 % Basophils (%) (Auto) 1.0 0.0-2.0 % Neutrophils # (Auto) 7.2 1.6-8.6 10 ^3/uL Lymphocytes # (Auto) 2.4 0.4-5.4 10 ^3/uL Monocytes # (Auto) 0.6 0-1.3 10 ^3/uL Eosinophils # (Auto) 0.3 0-0.8 10 ^3/uL Basophils # (Auto) 0.1 0-0.2 10 ^3/uL Nucleated Red Blood Cells 0.1 % Sodium Level 125 #L 136-145 mmol/L Potassium Level 5.5 H 3.5-5.1 mmol/L Chloride Level 95 L 98-107 mmol/L Carbon Dioxide Level 17 L 20-31 mmol/L Anion Gap 13 5-15 Blood Urea Nitrogen 6 L 9-23 mg/dL Creatinine 0.72 0.550-1.02 mg/dL Glomerular Filtration Rate Calc 116 >90 mL/min BUN/Creatinine Ratio 8.3 L 10.0-20.0 Serum Glucose 113 H 74-106 mg/dL Calcium Level 10.3 8.7-10.4 mg/dL [place] [id number] Ph: [phone] DIAGNOSTIC IMAGING Diagnostic Imaging Report : [id number] Signed PATIENT: THOMAS WORRELL SACCT: [id number] UNIT: [id number] : 1995 LOC: ER ROOM / BED: / AGE / SEX: 29 / F ADM STATUS: REG ER SERVICE 8 ORDERING PHYSICIAN: PHILLIP ALLEN DO PROCEDURE(s): CXRP - CHEST PORTABLE REASON: cp ORDER NUMBER(s): [id number], ACCESSION NUMBER(s): [id number] CHEST RADIOGRAPH Indication: cp Technique: Single frontal view of the chest was obtained Comparison: XR CHEST 1 VIEW on DOS: 11/07/24 FINDINGS: Lines and Tubes: None Lungs: No focal consolidation. Pleura: No effusion. No pneumothorax. Cardiomediastinal contours: Unremarkable Bones: No acute osseous abnormality. IMPRESSION: 1. No acute cardiopulmonary disease. ATED BY: DOMI PARRISH MD DICTATED DATE/TIME: 12/06/24639 SIGNED BY: DOMI PARRISH MD SIGNED DATE/TIME: 12/06/24639 CC: Time of 1ST Reevaluation: 07:00 Reevaluation 1ST: Unchanged Patient Education/Counseling: Diagnosis, Treatment Family Education/Counseling: No Family Present SEPSIS Sepsis Screen Date sepsis recognized/suspect: Dec 06, 2024 Time Sepsis recognized/suspect: 0421 Recent Procedure: No On Antibiotic Therapy: No Respiratory Rate >20: No Heart Rate >90: No Temp<36 C (96.8 F) or >38.3 C: No SBP <90 or MAP <65 mmHG: No New Acute Mental Status Change: No Is the patient on CPAP, BIPAP,: No Physician Orders Logistics Planning Manager (12/06/24 ) Chest Portable (12/06/24 06:09) Troponin-I Hs (12/06/24 09:09) Vital Signs Date Time Temp Pulse Resp B/P (MAP) Pulse Ox O2 Delivery O2 Flow Rate FiO2 12/06/24 09:40 98.7 93 22 121/74 (90) 98 98.7 12/06/24 04:31 88 12/06/24 04:21 98.9 110 18 105/62 99 98.9 Laboratory Tests Test 12/06/24 04:45 White Blood Count 10.7 10^3/uL (4.4-10.8) Departure 1 Departure Time of Disposition: 09:58 (Patient with hyperkalemia, dehydration, hyponatremia. We will admit patient for further workup and expert consultation.I reviewed the patient's lab work, EKG, x-ray. we will admit patient for workup) Impression: Primary Impression: Hyponatremia Additional Impressions: Hyperkalemia Dehydration Acute chest pain Disposition: ADMITTED INPATIENT Admit to: Med Surg Condition: Serious Critical Care Note Critical Care Time?: No Stability Stability form required: No Heart Score Heart Score: Heart Score Response (Comments) Value History N/A 0 EKG N/A 0 Age N/A 0 Risk Factors N/A 0 Troponin N/A 0 Total 0 I personally scribed for CLAIRE DIGGS MD ([email or web address]) on 12/06/24 at 06:32. Electronically submitted by Paola Machuca ([email or web address]). I personally scribed for CLAIRE DIGGS MD ([email or web address]) on 12/06/24 at 06:53. Electronically submitted by Paola Machuca ([email or web address]). I personally scribed for CLAIRE DIGGS MD ([email or web address]) on 12/06/24 at 06:56. Electronically submitted by Paola Machuca ([email or web address]). I personally scribed for CLAIRE DIGGS MD ([email or web address]) on 12/06/24 at 07:33. Electronically submitted by Paola Machuca ([email or web address]). I personally scribed for CLAIRE DIGGS MD ([email or web address]) on 12/06/24 at 08:28. Electronically submitted by Paola Machuca ([email or web address]). CLAIRE DIGGS MD Dec 06, 2024 06:32
--- NOTE | 2024-12-06 06:43 | DVH ---
CHEST RADIOGRAPH Indication: cp Technique: Single frontal view of the chest was obtained Comparison: XR CHEST 1 VIEW on DOS: 11/07/24 FINDINGS: Lines and Tubes: None Lungs: No focal consolidation. Pleura: No effusion. No pneumothorax. Cardiomediastinal contours: Unremarkable Bones: No acute osseous abnormality. IMPRESSION: 1. No acute cardiopulmonary disease.
[2024-12-06 07:07] LABS: Anion Gap 13 (5-15)
[2024-12-06 07:08] LABS: Calcium 10.3 mg/dL (8.7-10.4); Hematocrit 41.6 % (36.0-46.0); Hemoglobin 14.0 g/dL (12.2-16.2); Mean Corpuscular Hemoglobin 22.9 pg (28.0-32.0); Mean Corpuscular Volume 68.4 fL (80.0-100.0); Nucleated Red Blood Cells % 0.1 %
[2024-12-06 07:13] LABS: BUN/Creatinine Ratio 8.3 (10.0-20.0)
[2024-12-06 07:14] LABS: Blood Urea Nitrogen 6 mg/dL (9-23); Carbon Dioxide 17 mmol/L (20-31); Chloride 95 mmol/L (98-107); Glucose 113 mg/dL (74-106); Potassium 5.5 mmol/L (3.5-5.1); Sodium 125 mmol/L (136-145)
[2024-12-06] MEDS: LORazepam 0.5 MG TAB PO ONE (10:07)
[2024-12-06] MEDS: SODIUM CHLORIDE 0.9% 1,000 ML IV ONE (10:08)
[2024-12-06] MEDS ORDERED: ONDANSETRON HCL 4 MG/2 ML VIAL IV PRN (10:45)
[2024-12-06] MEDS ORDERED: NITROGLYCERIN 0.4 MG SL TAB SL PRN (10:45)
[2024-12-06] MEDS ORDERED: DOCUSATE SOD 100 MG CAP PO PRN (10:45)
--- NOTE | 2024-12-06 10:50 | DVHHP2 ---
History of Present Illness Reason for Visit: Anxiety and chest discomfort History of Present Illness 29-year-old female past medical history anxiety diabetes panic attacks and gastritis surgical history gallbladder surgery chief complaint patient comes in stating at 4:00 a.m. she started having anxiety attack and she also developed some pressure on her chest on the left side she states nothing makes it better nothing makes it worse there was no tearing sensation in her chest she states it feels like a anxiety attack she denies any calf pain or leg swelling. Patient denies any history AL when evaluating patient's labs and imaging from ED normal saline was given Ativan CBC was unremarkable sodium was 125 potassium was 5.5 chloride was 95 CO2 was 17 glucose was 113 patient denies any nausea or vomiting no diarrhea chest x-ray was unremarkable troponin was negative x2 patient does state she smoked marijuana. With these findings we will admit patient for fur ther workup and care Past Medical History See HPI above Past Surgical History See HPI above Family History Reviewed, non-contributory to the management of this case. Past Social History Patient does smoke marijuana but denies any drug or alcohol use Review of Systems Constitutional: No: Fever, Chills, Sweats, Weakness, Malaise, Other Eyes: No: Pain, Vision change, Conjunctivae inflammation, Eyelid inflammation, Other, Redness ENT: No: Ear pain, Ear discharge, Nose pain, Nose discharge, Nose congestion, Mouth pain, Mouth swelling, Throat pain, Throat swelling, Other Respiratory: No: Cough, Dry, Shortness of breath, SOB with excertion, Wheezing, Hemoptysis, Pleuritic Pain, Sputum, Wheezing, Other Cardiovascular: Chest Pain; No: Palpitations, Orthopnea, Paroxysmal Noc. Dyspnea, Edema, Lt Headedness, Other Gastrointestinal: No: Nausea, Vomiting, Abdominal Pain, Diarrhea, Constipation, Melena, Hematochezia, Other Genitourinary: No Dysuria, No Frequency, No Incontinence, No Hematuria, No Retention, No Other Musculoskeletal: No: other, neck pain, shoulder pain, arm pain, back pain, hand pain, leg pain, foot pain Skin: No: Rash, Lesions, Jaundice, Bruising, Other Neurological: No: Weakness, Numbness, Incoordination, Change in speech, Confusion, Seizures, Other Allergies: Coded Allergies: NO KNOWN ALLERGIES (Unverified , 04/28/19) Exam Vital Signs Vital Signs Date Time Temp Pulse Resp B/P (MAP) Pulse Ox O2 Delivery O2 Flow Rate FiO2 12/06/24 09:40 98.7 93 22 121/74 (90) 98 98.7 General Appearance: Alert, Oriented X3, Cooperative, No acute distress HEENT: Atraumatic, PERRLA, EOMI, Mucous membr. moist/pink Respiratory: Clear to auscultation, Normal air movement Cardiovascular: Regular rate, Normal S1, Normal S2, No murmurs Abdominal: Normal bowel sounds, Soft, No tenderness, No hepatospenomegaly, No masses Extremities: No clubbing, No cyanosis, No edema, Normal pulses, No tenderness/swelling Skin: No rashes, No breakdown, No significant lesion Neuro: Normal gait, Normal speech, Strength at 5/5 X4 ext, Normal tone, Sensation intact, Cranial nerves 3-12 NL Psych/Mental Status: Mental status NL, Mood NL Labs/Xrays Chest x-ray unremarkable I reviewed labs, imaging CT scan abdomen pelvis, EKG and all diagnostic studies on this patient from ED records and the medical chart Labs Test 12/06/24 08:55 12/06/24 04:45 Range/Units Troponin I High Sensitivity < 3 L </=34 ng/L White Blood Count 10.7 4.4-10.8 10^3/uL Red Blood Count 6.09 H 4.0-5.20 10^6/uL Hemoglobin 14.0 12.2-16.2 g/dL Hematocrit 41.6 # 36.0-46.0 % Mean Corpuscular Volume 68.4 L 80.0-100.0 fL Mean Corpuscular Hemoglobin 22.9 L 28.0-32.0 pg Mean Corpuscular Hemoglobin Concent 33.5 32.0-36.0 g/dL Red Cell Distribution Width 17.6 H 11.8-14.3 % Platelet Count 494 H 140-450 10^3/uL Mean Platelet Volume 8.6 6.9-10.8 fL Neutrophils (%) (Auto) 67.3 37.0-80.0 % Lymphocytes (%) (Auto) 22.8 10.0-50.0 % Monocytes (%) (Auto) 5.7 0.0-12.0 % Eosinophils (%) (Auto) 3.2 0.0-7.0 % Basophils (%) (Auto) 1.0 0.0-2.0 % Neutrophils # (Auto) 7.2 1.6-8.6 10 ^3/uL Lymphocytes # (Auto) 2.4 0.4-5.4 10 ^3/uL Monocytes # (Auto) 0.6 0-1.3 10 ^3/uL Eosinophils # (Auto) 0.3 0-0.8 10 ^3/uL Basophils # (Auto) 0.1 0-0.2 10 ^3/uL Nucleated Red Blood Cells 0.1 % Sodium Level 125 #L 136-145 mmol/L Potassium Level 5.5 H 3.5-5.1 mmol/L Chloride Level 95 L 98-107 mmol/L Carbon Dioxide Level 17 L 20-31 mmol/L Anion Gap 13 5-15 Blood Urea Nitrogen 6 L 9-23 mg/dL Creatinine 0.72 0.550-1.02 mg/dL Glomerular Filtration Rate Calc 116 >90 mL/min BUN/Creatinine Ratio 8.3 L 10.0-20.0 Serum Glucose 113 H 74-106 mg/dL Calcium Level 10.3 8.7-10.4 mg/dL SEPSIS Sepsis Screen Date sepsis recognized/suspect: Dec 06, 2024 Time Sepsis recognized/suspect: 420 Recent Procedure: No On Antibiotic Therapy: No Respiratory Rate >20: No Heart Rate >90: No Temp<36 C (96.8 F) or >38.3 C: No SBP <90 or MAP <65 mmHG: No New Acute Mental Status Change: No Is the patient on CPAP, BIPAP,: No Physician Orders Veneer Jointer (12/06/24 ) Chest Portable (12/06/24 06:09) Troponin-I Hs (12/06/24 09:09) Admit (12/06/24 10:43) Allergies (12/06/24 10:43) Code Status (12/06/24 10:43) 0.9% Ns 1000 Ml (12/06/24 10:45) Vital Signs Date Time Temp Pulse Resp B/P (MAP) Pulse Ox O2 Delivery O2 Flow Rate FiO2 12/06/24 09:40 98.7 93 22 121/74 (90) 98 98.7 12/06/24 04:31 88 12/06/24 04:21 98.9 110 18 105/62 99 98.9 Laboratory Tests Test 12/06/24 04:45 White Blood Count 10.7 10^3/uL (4.4-10.8) Medications Medications Dose Ordered Sig/Franklyn Route Start Time Stop Time Status Last Admin Dose Admin Lorazepam 1 mg ONCE ONCE PO 12/06/24 07:30 12/06/24 07:31 DC 12/06/24 10:07 1 MG Sodium Chloride 1,000 ml @ 1,000 mls/hr Q1H ONCE IV 12/06/24 08:45 12/06/24 09:44 DC 12/06/24 10:08 1,000 MLS/HR Assessment/Plan Assessment/Plan acute chest pain likely anxiety reaction vs gastritis cxr normal ekg no stemi/trop negative ordered echo fu results ordered ativan prn ordered protonix ordered lipase fu results acute hyponatremia ordered serum osm, and urine sodium and urine crea to check fena ordered gently iv hydration acute hyperkalemia ordered iv hydration repeat k ordered mag and phos chronic problems anxiety dm insulin sliding scale gastritis panic attacks fen/ppx diet as can tolerate hl scd ivf protonix plan admit to tele Plan discussed with: Patient My Orders Orders - CRSITÓBAL MACIAS DNP Procedure Category Date Status Time Admit ADMIT 12/06/24 Verified 10:43 Allergies CHAVA 12/06/24 Verified 10:43 Code Status CODE 12/06/24 Verified 10:43 0.9% Ns 1000 Ml PHA 12/06/24 Verified 10:45 Date of Service: Dec 06, 2024 Billing Provider: CRISTÓBAL MACIAS DNP Common Visit Codes: [id number] INP/OBS CARE (HIGH) CRISTÓBAL MACIAS DNP Dec 06, 2024 10:50
[2024-12-06] MEDS: SODIUM CHLORIDE 0.9% 1,000 ML IV SCH (11:16)
[2024-12-06 12:14] LABS: Magnesium 2.2 mg/dL (1.6-2.6)
[2024-12-06] MEDS: PANTOPRAZOLE 40 MG/10 ML VIAL INJ IV ONE (12:46)
[2024-12-06] MEDS: SODIUM ZIRCONIUM CYCL 10 GM PAK PO ONE (17:30)
[2024-12-06] MEDS: CALCIUM GLUC 1,000mg/50ml-NS 50 ML IV ONE (17:30)
[2024-12-06] MEDS: ALBUTEROL SULF 2.5 MG/0.5ML(0.5%) NEB SOLN NEB ONE (17:38)
[2024-12-06 18:10] VITALS: BP 126/76; PULSE 119; RESP 18; TEMP 97.5; O2SAT 97
[2024-12-06 18:39] VITALS: PULSE 119; RESP 18; O2SAT 97
[2024-12-06 19:05] VITALS: BP 126/76; PULSE 119; RESP 18; TEMP 97.5; O2SAT 97
[2024-12-06 20:00] VITALS: PULSE 100; PULSE 112; RESP 16
[2024-12-06 21:00] VITALS: BP 99/69; PULSE 109; RESP 20; TEMP 98; O2SAT 92
[2024-12-07] VITALS (8 sets, daily range): BP systolic 104–129; BP diastolic 62–82; PULSE 98–111; RESP 18–21; TEMP 96.9–98.2; O2SAT 95–99
[2024-12-07] MEDS: LORazepam 2MG/ML-1ML VIAL IV PRN (02:00)
[2024-12-07 06:12] LABS: Hematocrit 36.1 % (36.0-46.0); Hemoglobin 12.1 g/dL (12.2-16.2); Mean Corpuscular Hemoglobin 23.0 pg (28.0-32.0); Mean Corpuscular Volume 68.4 fL (80.0-100.0); Nucleated Red Blood Cells % 0.0 %
[2024-12-07 06:38] LABS: Alanine Aminotransferase 35 U/L (7-40); Albumin 4.4 g/dL (3.2-4.8); Anion Gap 13 (5-15); Bilirubin, Total 0.4 mg/dL (0.2-1.0); Calcium 9.1 mg/dL (8.7-10.4); Carbon Dioxide 20 mmol/L (20-31); Potassium 3.6 mmol/L (3.5-5.1); Total Protein 7.3 g/dL (5.7-8.2)
[2024-12-07 06:45] LABS: Alkaline Phosphatase 40 U/L (46-116); BUN/Creatinine Ratio 8.2 (10.0-20.0); Blood Urea Nitrogen < 5 mg/dL (9-23); Chloride 98 mmol/L (98-107); Glucose 107 mg/dL (74-106); Sodium 131 mmol/L (136-145)
[2024-12-07] MEDS ORDERED: AMOX250C3 PO (06:45)
[2024-12-07] MEDS: PANTOPRAZOLE 40 MG/10 ML VIAL INJ IV SCH (10:10)
--- NOTE | 2024-12-07 11:05 | DVHPN2 ---
Subjective She was admitted for nausea and vomiting and low appetite She had dehydration and mild DKA and hyponatremia She is feeling better Changes from previous H/P or p: Changes Eyes: No Pain, No Vision change, No Conjunctivae inflammation, No Eyelid inflammation, No Other, No Redness ENT: No Ear pain, No Ear discharge, No Nose pain, No Nose discharge, No Nose congestion, No Mouth pain, No Mouth swelling, No Throat pain, No Throat swelling, No Other Cardiovascular: Chest Pain; No Palpitations, No Orthopnea, No Paroxysmal Noc. Dyspnea, No Edema, No Lt Headedness, No Other Respiratory: No Cough, No Dry, No Shortness of breath, No SOB with excertion, No Wheezing, No Hemoptysis, No Pleuritic Pain, No Sputum, No Other Gastrointestinal: No Nausea, No Vomiting, No Abdominal Pain, No Diarrhea, No Constipation, No Melena, No Hematochezia, No Other Genitourinary: No Dysuria, No Frequency, No Incontinence, No Hematuria, No Retention, No Other Musculoskeletal: No other, No neck pain, No shoulder pain, No arm pain, No back pain, No hand pain, No leg pain, No foot pain Skin: No Rash, No Lesions, No Jaundice, No Bruising, No Other Objective Vitals Vital Signs Date Time Temp Pulse Resp B/P (MAP) Pulse Ox O2 Delivery O2 Flow Rate FiO2 12/07/24 09:00 98.1 99 18 121/82 (95) 99 98.1 12/07/24 08:00 Room Air* 0 21 Intake/Output Intake and Output 12/07/24 07:00 Intake Total 2500 ml Balance 2500 ml Intake Oral 500 ml IV Total 2000 ml # Voids 4 # Bowel Movements 1 General Appearance: Alert, Oriented X3, Cooperative, No acute distress Lungs: Clear to auscultation Cardiovascular: Regular rate, Normal S1 Abdomen: Normal bowel sounds, Soft Extremities: No edema Medications Current Medications Medications Dose Ordered Sig/Franklyn Route Start Time Stop Time Status Last Admin Dose Admin Sodium Chloride 1,000 ml @ 120 mls/hr Q8H20M IV 12/06/24 10:45 12/07/24 06:34 120 MLS/HR Ondansetron HCl 4 mg Q4HP PRN IV 12/06/24 10:45 Docusate Sodium 100 mg BIDPRN PRN PO 12/06/24 10:45 Morphine Sulfate 2 mg Q4HPRN PRN IV 12/06/24 10:45 Nitroglycerin 0.4 mg Q5MINP PRN SL 12/06/24 10:45 Pantoprazole Sodium 40 mg DAILY IV 12/07/24 10:00 12/07/24 10:10 40 MG Lorazepam 0.5 mg Q6HP PRN IV 12/06/24 11:00 12/07/24 02:00 0.5 MG Laboratory Results Laboratory Tests 12/07/24 05:07 Chemistry Test 12/07/24 05:07 Albumin 4.4 g/dL (3.2-4.8) Calcium Level 9.1 mg/dL (8.7-10.4) Total Protein 7.3 g/dL (5.7-8.2) LFT Test 12/07/24 05:07 Alanine Aminotransferase (ALT) 35 U/L (7-40) Alkaline Phosphatase 40 U/L (46-116) L Aspartate Amino Transferase (AST) 31 U/L (13-40) Total Bilirubin 0.4 mg/dL (0.2-1.0) Assessment/Plan Assessment/Plan Dehydration Acute kidney injury DKA Type 2 diabetes Hyponatremia Hyperkalemia Anxiety Panic attacks Plan Continue IV fluids normal saline Accu-Cheks as needed Xanax p.r.n. Hold the metformin for now Diabetic diet Monitor closely Advance directives discussed for 18 minutes Full code Plan discussed with: Patient My Orders Orders - MACK JEFFERSON MD Procedure Category Date Status Time Alprazolam Tablet PHA 12/07/24 Verified (Xanax Tablet) 11:15 Date of Service: Dec 07, 2024 Billing Provider: MACK JEFFERSON MD Common Visit Codes: [id number] INP/OBS CARE(HIGH) Secondary Visit Codes: [id number] CARE PLAN 30 MINUTES MACK JEFFERSON MD Dec 07, 2024 11:05
[2024-12-07] MEDS ORDERED: DEXTROSE (50%) 50ML SYRG IV PRN (11:15)
[2024-12-07] MEDS ORDERED: ALPRAZolam 0.25 MG TAB PO PRN (11:15)
[2024-12-07] MEDS: InsuLIN REG 1unit/0.01ml Soln (100units/ml) SC SCH (17:00)
[2024-12-07] MEDS: ACCU-CHEK COMFORT CURVE STRIP VI SCH (17:00)
[2024-12-07] MEDS: MORPHINE SULFATE INJ 2 MG/ml SYRG IV PRN (20:35)
[2024-12-08] VITALS (7 sets, daily range): BP systolic 105–122; BP diastolic 58–77; PULSE 97–108; RESP 16–20; TEMP 97.9–98.2; O2SAT 95–97
[2024-12-08 07:10] LABS: Anion Gap 13 (5-15); Calcium 9.2 mg/dL (8.7-10.4); Carbon Dioxide 20 mmol/L (20-31); Chloride 102 mmol/L (98-107); Potassium 4.3 mmol/L (3.5-5.1); Sodium 135 mmol/L (136-145)
[2024-12-08 07:16] LABS: Glucose 89 mg/dL (74-106)
[2024-12-08 07:17] LABS: Magnesium 1.8 mg/dL (1.6-2.6)
[2024-12-08 07:18] LABS: BUN/Creatinine Ratio 8.1 (10.0-20.0); Blood Urea Nitrogen < 5 mg/dL (9-23)
--- NOTE | 2024-12-08 10:35 | DVHDS2 ---
Discharge Summary Date of Admission Dec 06, 2024 at 10:43 Date of Discharge: Dec 08, 2024 Labs/Diagnostic Data: Laboratory Results Test 12/08/24 06:05 12/08/24 05:56 12/07/24 05:07 12/06/24 11:17 Sodium Level 135 mmol/L (136-145) Potassium Level 4.3 mmol/L (3.5-5.1) Chloride Level 102 mmol/L (98-107) Carbon Dioxide Level 20 mmol/L (20-31) Anion Gap 13 (5-15) Blood Urea Nitrogen < 5 mg/dL (9-23) Creatinine 0.62 mg/dL (0.550-1.02) Glomerular Filtration Rate Calc 124 mL/min (>90) BUN/Creatinine Ratio 8.1 (10.0-20.0) Serum Glucose 89 mg/dL (74-106) Calcium Level 9.2 mg/dL (8.7-10.4) Magnesium Level 1.8 mg/dL (1.6-2.6) POC Glucose 103 mg/dl (70-106) White Blood Count 8.2 10^3/uL (4.4-10.8) Red Blood Count 5.29 10^6/uL (4.0-5.20) Hemoglobin 12.1 g/dL (12.2-16.2) Hematocrit 36.1 % (36.0-46.0) Mean Corpuscular Volume 68.4 fL (80.0-100.0) Mean Corpuscular Hemoglobin 23.0 pg (28.0-32.0) Mean Corpuscular Hemoglobin Concent 33.6 g/dL (32.0-36.0) Red Cell Distribution Width 17.4 % (11.8-14.3) Platelet Count 398 10^3/uL (140-450) Mean Platelet Volume 8.2 fL (6.9-10.8) Neutrophils (%) (Auto) 54.1 % (37.0-80.0) Lymphocytes (%) (Auto) 29.7 % (10.0-50.0) Monocytes (%) (Auto) 8.7 % (0.0-12.0) Eosinophils (%) (Auto) 6.4 % (0.0-7.0) Basophils (%) (Auto) 1.1 % (0.0-2.0) Neutrophils # (Auto) 4.4 10 ^3/uL (1.6-8.6) Lymphocytes # (Auto) 2.4 10 ^3/uL (0.4-5.4) Monocytes # (Auto) 0.7 10 ^3/uL (0-1.3) Eosinophils # (Auto) 0.5 10 ^3/uL (0-0.8) Basophils # (Auto) 0.1 10 ^3/uL (0-0.2) Nucleated Red Blood Cells 0.0 % Total Bilirubin 0.4 mg/dL (0.2-1.0) Aspartate Amino Transferase (AST) 31 U/L (13-40) Alanine Aminotransferase (ALT) 35 U/L (7-40) Alkaline Phosphatase 40 U/L (46-116) Total Protein 7.3 g/dL (5.7-8.2) Albumin 4.4 g/dL (3.2-4.8) Troponin I High Sensitivity < 3 ng/L (</=34) Test 12/06/24 04:45 Serum Osmolality 271 mOsm/kg (278-298) Phosphorus Level 3.1 mg/dL (2.4-5.1) Lipase 72 U/L (12-53) Other Laboratory Tests 12/08/24 06:05 12/07/24 05:07 Brief Hx & Hospital Course: Final diagnoses: Dehydration Acute kidney injury DKA Type 2 diabetes Hyponatremia Hyperkalemia Anxiety Panic attacks 29-year-old female who was admitted for dehydration nausea and vomiting and acute kidney injury She was given IV fluids Overall she improved slowly and her nausea and vomiting diarrhea improved Today she is asymptomatic Her acidosis has resolved She is stable for discharge Resume the same home medications Condition at Discharge: Stable Final Diagnosis/Problems List Dehydration Acute kidney injury DKA Type 2 diabetes Hyponatremia Hyperkalemia Anxiety Panic attacks Discharge Disposition: Home SNF Discharge Will this Physician continue t: No Discharge Instruct/Medications Scheduled Amoxicillin Trihydrate (Amoxicillin), 500 MG PO BIDD, (Reported) Cefdinir (Cefdinir), 1 CAP PO BID Cephalexin (Keflex Capsule), 1 CAP PO TIDWM Ciprofloxacin Hcl (Cipro), 1 TAB PO BID Fludrocortisone Acetate (Fludrocortisone Acetate), 0.1 MG PO DAILY Hydrocortisone Base (Hydrocortisone), 50 MG PO TID Metformin Hydrochloride (Metformin Hcl), 500 MG PO IBID, (Reported) Pantoprazole Sodium Sesquihydr (Protonix), 40 MG PO DAILY Pantoprazole Sodium Sesquihydr (Protonix), 40 MG PO DAILY Sertraline Hcl (Sertraline Hcl), 100 MG PO DAILY, (Reported) Scheduled PRN Hydrocodone-Acetaminophen (Hydrocodone Bitartrate/AC 5-325 mg), 1 TAB PO Q6HP PRN Ibuprofen (Ibuprofen), 1 TAB PO TID PRN Ondansetron Odt 4MG Tab (Zofran Po), 4 MG PO Q8HP PRN Promethazine Hcl (Promethazine Hcl), 1 TAB PO Q6HPRN PRN Discharge Statement: "Patient was advised to return to the ER or call 911 if any headaches, dizziness, shortness of breath, chest pain, abdominal pain, bleeding, fevers, or worsening of medical condition. Patient was counseled about treatment plan, medications, possible side effects, patientverbalized understanding. All questions were answered to the best of my ability. This discharge took greater then 30 minutes in planning, reviewing documentation, counseling the patient, and discussing with other team members." ASSESSMENT ASSESSMENT Assessment Date of Service: Dec 08, 2024 Billing Provider: MACK JEFFERSON MD Common Visit Codes: [id number] DISCH DAY >30min MACK JEFFERSON MD Dec 08, 2024 10:35
== END 2024-12-08 18:02 | disposition home or self-care (01) | DRG 756 ==
LOC: ER 04:20 → OVERFLOW 10:43 → TELE-CENTR 18:22
PROVIDERS: ADMIT Internal Medicine Geriatric Medicine; ATTEND Internal Medicine Geriatric Medicine
DX: F41.0 Panic disorder [episodic paroxysmal anxiety] (principal); E11.10 Type 2 diabetes mellitus with ketoacidosis without coma; E87.1 Hypo-osmolality and hyponatremia; N17.9 Acute kidney failure, unspecified; I10 Essential (primary) hypertension; K29.70 Gastritis, unspecified, without bleeding; E86.0 Dehydration; E87.5 Hyperkalemia; E87.8 Other disorders of electrolyte and fluid balance, not elsewhere classified
CPT/HCPCS: 36415; 71045; 80048; 80053; 82962; 83690; 83735; 83930; 84100; 84484; 85025; 87081; 93005; 94640; 96361; 96374; G0378; J1815; J2470

== ENCOUNTER 2025-01-22 07:54 | Emergency (ER) | payer MEDICAID ==
[~2025-01-22] VITALS: Ht 160 cm; Wt 93.2 kg
[~2025-01-22 07:54] MED LIST changes: -CEFD300C2 PO; -CEPH250C PO; -CIPR-173 PO
--- NOTE | 2025-01-22 08:32 | ED.PDOC ---
History of Present Illness HPI Comments 29 year old female with PMHx HTN, thyroid disease, DM, anxiety presents to the emergency department with a chief complaint of anxiety onset today (01/22/25). Patient states she was discharged from [facility] yesterday, was admitted for 2 days with diagnosis of sepsis, gastroenteritis, UTI, cyclic vomiting syndrome, discharged with prescription of Xanax, Keflex, Promethazine. Patient states she woke up today feeling anxious, experiencing shortness of breath with the chest pain that worsens after taking deep breaths as well as nausea. 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 Patient states she was diagnosed with anxiety five years ago, has not seen psychiatrist recently. No other symptoms or modifying factors present at this time. Denies SI, HI, hallucinations Denies vomiting diarrhea abdominal pain Denies dizziness blurred vision headache Denies fever chills sweats Chief Complaint: Anxiety Time Seen by MD: 08:20 Primary Care Provider: ISMAEL Momin Notes: Medications, Allergies Allergies: Coded Allergies: NO KNOWN ALLERGIES (Unverified , 04/28/19) Home Meds Active Scripts Pantoprazole Sodium Sesquihydr (Protonix) 40 Mg Tab, 40 MG PO DAILY for 14 Days, #14 TAB Prov:MANUEL BLANDON NP 11/29/24 Ondansetron Odt 4MG Tab (ZOFRAN PO) 4 Mg Tb, 4 MG PO Q8HP PRN for 5 Days, #15 TAB ODT TAB-DISSOLVE IN MOUTH, THEN SWALLOW Prov:JIM BOSTON MD 01/04/24 Pantoprazole Sodium Sesquihydr (Protonix) 40 Mg Tab, 40 MG PO DAILY, #30 TAB Prov:JIM BOSTON MD 01/04/24 Hydrocodone-Acetaminophen (Hydrocodone Bitartrate/AC 5-325 mg) 1 Tab Tab, 1 TAB PO Q6HP PRN, #20 TAB Prov:ENRRIQUE VIRK DO 03/30/23 Promethazine Hcl (Promethazine Hcl) 25 Mg Tab, 1 TAB PO Q6HPRN PRN, #14 TAB Prov:LUIS GUZMAN MD 01/14/23 Ibuprofen (Ibuprofen) 600 Mg Tab, 1 TAB PO TID PRN, #20 TAB Prov:LUIS GUZMAN MD 01/14/23 Fludrocortisone Acetate (Fludrocortisone Acetate) 0.1 Mg Tab, 0.1 MG PO DAILY, #30 TAB Prov:CHUY HERZOG MD 06/16/19 Hydrocortisone Base (Hydrocortisone) 20 Mg Tab, 50 MG PO TID, #90 TAB Prov:CHUY HERZOG MD 06/16/19 Reported Medications Sertraline Hcl (Sertraline Hcl) 50 Mg Tab, 100 MG PO DAILY for 30 Days, MG 03/29/23 Metformin Hydrochloride (Metformin Hcl) 500 Mg Tab, 500 MG PO IBID for 30 Days, MG 01/11/23 Information Source: Patient Mode of Arrival: Ambulatory Severity: Moderate Timing: Hours Duration: Since onset Prehospital treatment: None Past Medical History PAST MEDICAL HISTORY: Anxiety, DM, HTN, Thyroid Surgical History: Cholecystectomy DEPARTMENT CHAIR History: No Pertinent DEPARTMENT CHAIR History Family History Family History: Unknown Social History Smoker: Non-Smoker Alcohol: Occasionally Drugs: Marijuana Lives In: Home All Other Systems: Reviewed and Negative (as per PHI) Physical Exam General Appearance: No Apparent Distress, Normal HEENT: Normal ENT Inspection, Pharynx Normal, TMs Normal Neck: Full Range of Motion, Non-Tender, Normal, Normal Inspection Respiratory: Chest Non-Tender, Lungs Clear, No Accessory Muscle Use, No Respiratory Distress, Normal Breath Sounds Cardiovascular: No Edema, No JVD, No Murmur, No Gallop, Normal Peripheral Pulses, Regular Rate/Rhythm Breast Exam: Deferred Gastrointestinal: No Organomegaly, Non Tender, No Pulsatile Mass, Normal Bowel Sounds, Soft Genitalia: Deferred Pelvic: Deferred Rectal: Deferred Extremities: No calf tenderness, Normal capillary refill, Normal inspection, Normal range of motion, Non-tender, No pedal edema Musculoskeletal : Apperance: Normal Neurologic: Alert, oil refiner II-XII nml as Tested, No Motor Deficits, Normal Affect, Normal Mood, No Sensory Deficits Cerebellar Function: Normal Reflexes: Normal Skin: Dry, Normal Color, Warm Lymphatic: No Adenopathy Was a procedure done? Was a procedure done?: No Differential Dx Considerations may include: CYST X-Ray, Labs, Meds, VS Vital Signs Date Time Temp Pulse Resp B/P (MAP) Pulse Ox O2 Delivery O2 Flow Rate FiO2 01/22/25 13:19 98.1 87 16 138/90 (106) 100 98.1 01/22/25 08:25 76 20 100 Room Air 01/22/25 08:25 97.9 70 20 141/93 (109) 100 97.9 01/22/25 07:58 97.1 84 17 125/85 95 97.1 Lab Test 01/22/25 11:17 01/22/25 08:49 01/22/25 08:26 Range/Units POC Glucose 108 H 70-106 mg/dl White Blood Count 13.8 H 4.4-10.8 10^3/uL Red Blood Count 5.50 H 4.0-5.20 10^6/uL Hemoglobin 12.0 L 12.2-16.2 g/dL Hematocrit 38.1 36.0-46.0 % Mean Corpuscular Volume 69.1 L 80.0-100.0 fL Mean Corpuscular Hemoglobin 21.8 L 28.0-32.0 pg Mean Corpuscular Hemoglobin Concent 31.5 L 32.0-36.0 g/dL Red Cell Distribution Width 18.0 H 11.8-14.3 % Platelet Count 444 140-450 10^3/uL Mean Platelet Volume 7.3 6.9-10.8 fL Neutrophils (%) (Auto) 72.4 37.0-80.0 % Lymphocytes (%) (Auto) 18.4 10.0-50.0 % Monocytes (%) (Auto) 5.9 0.0-12.0 % Eosinophils (%) (Auto) 2.7 0.0-7.0 % Basophils (%) (Auto) 0.6 0.0-2.0 % Neutrophils # (Auto) 10.0 H 1.6-8.6 10 ^3/uL Lymphocytes # (Auto) 2.5 0.4-5.4 10 ^3/uL Monocytes # (Auto) 0.8 0-1.3 10 ^3/uL Eosinophils # (Auto) 0.4 0-0.8 10 ^3/uL Basophils # (Auto) 0.1 0-0.2 10 ^3/uL Nucleated Red Blood Cells 0.0 % Sodium Level 135 L 136-145 mmol/L Potassium Level 4.0 3.5-5.1 mmol/L Chloride Level 103 98-107 mmol/L Carbon Dioxide Level 19 L 20-31 mmol/L Anion Gap 13 5-15 Blood Urea Nitrogen < 5 L 9-23 mg/dL Creatinine 0.65 0.550-1.02 mg/dL Glomerular Filtration Rate Calc 122 >90 mL/min BUN/Creatinine Ratio 7.7 L 10.0-20.0 Serum Glucose 111 H 74-106 mg/dL Calcium Level 9.4 8.7-10.4 mg/dL Troponin I High Sensitivity 3 L </=34 ng/L Lipase 41 12-53 U/L Urine Color Yellow Yellow Urine Clarity Turbid H Clear Urine pH 8.0 5.0-9.[address] 1.020 1.001-1.035 Urine Protein Trace H Negative Urine Ketones 1+ H Negative Urine Blood Negative Negative /uL Urine Nitrite Negative Negative Urine Bilirubin Negative Negative Urine Urobilinogen Normal Negative mg/dL Urine Leukocyte Esterase Negative Negative /uL Urine RBC 1 0 - 4 /hpf Urine Microscopic WBC 2 0-5 /HPF Urine Squamous Epithelial Cells Few <5 /hpf Urine Bacteria None seen None Seen /hpf Urine Mucus Few None Seen Urine Yeast (Budding) Occasional None Seen /hpf Urine Glucose Normal Normal mg/dL Urine Opiates Screen Neg NEGATIVE Urine Fentanyl Screen Neg NEGATIVE Urine Barbiturates Screen Neg NEGATIVE Urine Phencyclidine Screen Neg NEGATIVE Urine Amphetamines Screen Neg NEGATIVE Urine Benzodiazepines Screen Neg NEGATIVE Urine Cocaine Screen Neg NEGATIVE Urine Cannabinoids Screen Pos NEGATIVE X-Ray, Labs, Meds, VS Comment 29 year old female with PMHx HTN, thyroid disease, DM, anxiety presents to the emergency department with a chief complaint of anxiety onset today (01/22/25). Patient arrives alert and oriented, ABC's intact, afebrile, vital signs stable, saturating well in room air Patient was given: Lorazepam 1 mg PO. Tolerated medications with no adverse reaction. labs were ordered. CBC was ordered to exclude anemia, blood loss, or infection. BMP was ordered to exclude electrolyte abnormalities, renal failure, dehydration, hyperglycemia Urinalysis was ordered to rule out UTI or hematuria. Drug Screen was ordered. Additional MDM Review of External, Non-ED records: External records reviewed. Discussion with independent historian (EMS, family) history obtained from the patient/parents (if applicable) at bedside Chronic conditions affecting care: DM, thyroid disease, HTN, anxiety Social determinants of health affecting care: None Consideration of admission (observation or admission): I considered escalation of care to admission for this patient, however given the reassuring workup, the patient is safe for outpatient management. On reevaluation, patient had symptomatic improvement. Patient is stable for discharge at this time. External notes reviewed. Test results and diagnostic imaging interpreted. All diagnostic findings, discharge care, education and instructions provided Follow-up with PCP in 2 to 3 days Patient verbalized understanding and agreed to treatment plan Vital signs stable, afebrile, no acute distress noted Patient ambulatory with strong steady gait Advised to return precautions for any new or worsening symptoms, return to ER immediately for re-evaluation Patient is aware that the purpose of this visit was for an acute medical emergency requiring emergent stabilization. Chronic conditions, including malignancies have not been ruled out. Patient is instructed to follow up with PCP as directed and discharge instructions for continued care and workup. If unable to arrange follow-up, patient is to return to the emergency department for reassessment. Patient (parent or legal guardian if applicable) was given verbal and written discharge instructions and acknowledges understanding. Time of 1ST Reevaluation: 08:50 Reevaluation 1ST: Improved Patient Education/Counseling: Diagnosis, Treatment Family Education/Counseling: No Family Present SEPSIS Sepsis Screen Date sepsis recognized/suspect: Jan 22, 2025 Time Sepsis recognized/suspect: 075 Recent Procedure: No On Antibiotic Therapy: No Respiratory Rate >20: No Heart Rate >90: No Temp<36 C (96.8 F) or >38.3 C: No SBP <90 or MAP <65 mmHG: No New Acute Mental Status Change: No Is the patient on CPAP, BIPAP,: No Physician Orders Electrocardigram (01/22/25 10:12) Chest Xray 1 View (01/22/25 10:12) Vital Signs Date Time Temp Pulse Resp B/P (MAP) Pulse Ox O2 Delivery O2 Flow Rate FiO2 01/22/25 13:19 98.1 87 16 138/90 (106) 100 98.1 01/22/25 08:25 76 20 100 Room Air 01/22/25 08:25 97.9 70 20 141/93 (109) 100 97.9 01/22/25 07:58 97.1 84 17 125/85 95 97.1 Laboratory Tests Test 01/22/25 08:49 White Blood Count 13.8 10^3/uL (4.4-10.8) H Departure 1 Departure Time of Disposition: 12:46 Impression: Primary Impression: Anxiety Disposition: 01 HOME / SELF CARE / HOMELESS Condition: Stable Critical Care Note Critical Care Time?: No Stability Stability form required: No Heart Score Heart Score: Heart Score Response (Comments) Value History N/A 0 EKG N/A 0 Age N/A 0 Risk Factors N/A 0 Troponin N/A 0 Total 0 I personally scribed for JORGITO MO NP ([email or web address]) on 01/22/25 at 08:32. Electronically submitted by Rafaela King ([email or web address]). I personally scribed for JORGITO MO NP ([email or web address]) on 01/22/25 at 08:45. Electronically submitted by Rafaela King ([email or web address]). JORGITO MO NP Jan 22, 2025 08:32
[2025-01-22] MEDS: LORazepam 0.5 MG TAB PO ONE ×2 (08:42→13:16)
[2025-01-22 09:03] LABS: Hematocrit 38.1 % (36.0-46.0); Hemoglobin 12.0 g/dL (12.2-16.2); Mean Corpuscular Hemoglobin 21.8 pg (28.0-32.0); Mean Corpuscular Volume 69.1 fL (80.0-100.0); Nucleated Red Blood Cells % 0.0 %
[2025-01-22 09:10] LABS: Chloride 103 mmol/L (98-107); Potassium 4.0 mmol/L (3.5-5.1)
[2025-01-22 09:11] LABS: Anion Gap 13 (5-15); Calcium 9.4 mg/dL (8.7-10.4)
[2025-01-22 09:15] LABS: Carbon Dioxide 19 mmol/L (20-31); Sodium 135 mmol/L (136-145)
[2025-01-22 09:17] LABS: BUN/Creatinine Ratio 7.7 (10.0-20.0); Blood Urea Nitrogen < 5 mg/dL (9-23); Glucose 111 mg/dL (74-106)
[2025-01-22] MEDS: ONDANSETRON HCL 4 MG/2 ML VIAL IM ONE (10:05)
[2025-01-22 10:21] LABS: Urine Budding Yeast OCCASIONAL /hpf (None Seen); Urine Protein, UAD TRACE (Negative)
[2025-01-22 10:25] LABS: Barbiturate Scree,Urine Neg (NEGATIVE)
[2025-01-22 10:26] LABS: Opiate Scree,Urine Neg (NEGATIVE); Phencyclidine Screen, Urine Neg (NEGATIVE)
[2025-01-22 10:52] LABS: Amphetamine Screen, Urine Neg (NEGATIVE); Benzodiazephine Screen, Urine Neg (NEGATIVE); Cannabinoid Screen, Urine Pos (NEGATIVE); Cocaine Screen, Urine Neg (NEGATIVE)
--- NOTE | 2025-01-22 11:15 | DVH ---
EXAM: XY CHEST XRAY 1 VIEW Indication: CP Technique: Single frontal view of the chest was obtained Comparison: XY CHEST PORTABLE on DOS: 12/06/24, XR CHEST 1 VIEW on DOS: 11/07/24, XY CHEST PORTABLE on DOS: 04/21/24, XY CHEST TWO VIEWS ROUTINE on DOS: 04/18/24, XY CHEST PORTABLE on DOS: 04/13/24 FINDINGS: Lines and Tubes: None Lungs: No focal consolidation. Pleura: No effusion. No pneumothorax. Cardiomediastinal contours: Unremarkable Bones: No acute osseous abnormality. IMPRESSION: No acute cardiopulmonary disease.
[2025-01-22] MEDS: LORazepam 2MG/ML-1ML VIAL IV ONE (11:44)
[2025-01-22] MEDS: ONDANSETRON HCL 4 MG/2 ML VIAL IV ONE (13:16)
[2025-01-22 13:19] VITALS: BP 138/90; PULSE 87; RESP 16; TEMP 98.1; O2SAT 100
== END 2025-01-22 13:22 | disposition home or self-care (01) ==
LOC: ER 07:54
DX: F41.9 Anxiety disorder, unspecified (principal); E11.9 Type 2 diabetes mellitus without complications; I10 Essential (primary) hypertension; Z90.49 Acquired absence of other specified parts of digestive tract; Z79.899 Other long term (current) drug therapy
CPT/HCPCS: 36415; 71045; 80048; 80307; 81001; 82947; 83690; 84484; 85025; 96372; 96374; 99284; J2060; J2405; 82962